=== PATIENT | female | born 1935 | race Caucasian/White ===

== ENCOUNTER → 2017-11-17 12:28 | Outpatient (CLI) | payer MEDICARE, OTHER, SELFPAY ==
--- NOTE | 2017-11-17 12:32 | RAD_ITS ---
STUDY: X-RAY - CERVICAL SPINE REASON FOR EXAM: Female, 82 years old. RIGHT SIDE NECK PAIN TECHNIQUE: 5 view(s) of the cervical spine were obtained. COMPARISON: None FINDINGS: Normal anterior atlantoaxial articulation. Normal odontoid process. Normal cervical lordosis. There is multi-level endplate spondylosis. There is C5-6 degenerative disc disease with disc space narrowing. There is C5-6 osseous foraminal stenosis. There is 3 mm retrolisthesis at C5-6. The soft tissue structures are unremarkable. RAD/Cerv Spine 4 or 5 Views IMPRESSION: There is C5-6 degenerative disc disease with disc space narrowing. There is C5-6 osseous foraminal stenosis. There is 3 mm retrolisthesis at C5-6. Electronically Signed: Lilly Melgoza MD at 7:44 EDT Tel , Service support ,
== END ==
PROVIDERS: Family Provider Internal Medicine; PCP Internal Medicine; Visit Provider Nurse Practitioner
DX: M54.2 Cervicalgia (principal)
CPT/HCPCS: 72050

== ENCOUNTER 2017-12-24 14:00 | Outpatient (RCR) | payer MEDICARE, OTHER, SELFPAY ==
--- NOTE | 2017-12-13 16:45 | HP.PTEVAL_ITS ---
Patient's Visit Information ALBER GUY is a 82 year old F referred to Physical Therapy by Neelam Phillips with a diagnosis of Cervical stenois, cervical DDD. Date of Evaluation: 11/26/17 Physical Therapist: Stu Kaplan - Visit Plan Frequency: 2x /Week Duration: 4-6 Weeks Plan: Start with UT/levator scpaulea stretching, cervical distraction, US progressing to postural strengthening as tolerated. - Subjective Subjective: Pt. is here today for her initial evaluation with diagnosis of cervical stenosis adn cervical degenerative disc disease. Pt. reports being very active in gym, she goes and works out daily at [employer]. She reprots having increased pain in her neck for ~7-8 weeks now, but has happened in past. Pt. reports it has never been this bad. Pt. reports taking ibuprophen with minimal relief. Her symptoms radiate into shoulder and forarm at times. Pt. reports increased pain with: lifting, sitting. Improved symptoms: not much. Pt. had an Xray showing C5-C6 DDD with disc space narrowing, C5/C6 psseous foraminal stenosis and 3mm retro listhesis at C6/C6. Pt. denies N/T, along the same pathway. Pt. denies inspector and tester strength loss. Pt. reports being very hopeful to reduce symptoms in order to get back to all gym work outs without symptoms. - Pain R arm Pain Intensity (Out of 10): 3 Pain Intensity Range: 1, 4 Cervical spine Pain Intensity (Out of 10): 3 Pain Intensity Range: 1, 4 - Objective POSTURE: Pt. has slight FH posture, increased cervical spine flexion at lower cervical spine, increased extension at upper crevical spine. Pt. has increased thoracic kyphosis. PALPATION: Pt. has increased tenderness to palpation of lower cervical spine. Pt. has no tenderness to palpation of R UE, slight soreness with RUT. NEUROLOGICAL: All intact without issues. Pt. has normal sensation to light and sharp touch throughout BUEs. ROM: Pt. has full ROM of bilateral UEs without incerase in symptoms. CERVICAL SPINE: flexion- nil loss NE , ext mod loss increase NW, rotation R min loss increase NW, rotation L min loss increase NE, SB min/mod loss bilat NE. Pt. has general stiffness throughout thoracic spine. MMT: RUE- wrist 4+/5 throughout; elbow 5/5 throughout; shoulder- 4/5 throughout. LUE- wrist 4+/5; elbow 5/5 throughout; shoulder- 4/5 throughout. Appropriate inspector and tester strength. - Special Tests C/S Radiculapathy - Left Upper limb tension test: Negative C/S Radiculapathy - Right Upper limb tension test: Negative C/S Radiculapathy - Left Spurlings: Negative C/S Radiculapathy - Right Spurlings: Positive C/S Radiculapathy - Left Cervical distraction: Negative C/S Radiculapathy - Right Cervical distraction: Negative C/S Radiculapathy - Left Relief test: Negative C/S Radiculapathy - Right Relief test: Positive Sharp Cheryl: Negative Vertebral Artery Test: Negative Alar Ligament Test: Negative Cervical Lying: Retraction - Mechanical Response: No effect Cervical Lying: Retraction - Symptoms During Testing: Decreases Cervical Lying: Retraction - Symptoms After Testing: No better Cervical Lying: Extension - Mechanical Response: No effect Cervical Lying: Extension - Symptoms During Testing: Increases Cervical Lying: Extension - Symptoms After Testing: No worse - Goals Goal 1:: Pt. to be I with HEP. Goal Time Frame: 4-6 Weeks Goal 2:: Pt. to have increased cervical ROM by 25% in all directions without increase in symptoms. Goal Time Frame: 4-6 Weeks Goal 3:: Pt. to be able to sleep throughout the night without increase in symptoms. Goal Time Frame: 4-6 Weeks Goal 4:: Pt. to have increased postural awareness visible my maintaining proper posture throughout therapy session. Goal Time Frame: 4-6 Weeks - Rehabilitation Potential Physical Therapy Diagnosis: Pt. has signs and symptoms consistent with cervical spine stenosis with cervical DDD. Pt. does have signs of nerve pressure as she is having radiating symptoms to approximately C5/C6 dermatome. Pt. had no myotomal weakness this date. Pt. would benefit from PT to increase cervical ROM , increase postural strength and to reduce symptoms. Rehabilitation Potential: Good - Anticipated Interventions Patient/Client Instruction: Educate patient on: Condition, Plan of Care, Risk Factors, Benefits of Fitness Program For the Purpose of:: To foster healthy habits, To improve decision making, To facilitate caregiver knowledge, To improve self management, To prevent re-injury , To improve ability to perform tasks related to life management, To improve tolerance to ADL's Therapeutic Exercise to Include: Strength training, Power training, Postural training, Flexibilty training, Jarocho Exercises, Scapular Strength/ Stabilization For the Purpose of:: To decrease pain, To increase ROM, To improve nutrient delivery to tissue, To decrease level of supervision to perform tasks, To improve health of tissue, To decrease soft tissue restriction, To increase flexibility/ROM, To improve self management, To prevent re-injury Manual Therapy Techniques to Include: Trigger point massage, Massage, Functional dry needling, Soft tissue mobilization For the Purpose of:: To decrease pain, To decrease swelling/inflammation, To increase ROM, To improve nutrient delivery to tissue IF ES: Yes Cryotherapy (ice pack, ice massage): Yes Thermo therapy (hot pack): Yes Ultrasound (thermal/non thermal): Yes For the Purpose of:: To decrease pain, To decrease swelling/inflammation, To increase ROM Thank you for the opportunity to evaluate your patient. For Medicare and Medicare HMO plans, please review the plan of care and approve it. It will need to be FAXED BACK to us at [phone] for Medicare purposes. Please let me know if there are questions or concerns regarding this plan of care. Physician Signature: Date:
--- NOTE | 2018-01-25 07:49 | HP.PTREVAL_ITS ---
Neelam Phillips, It has been my pleasure to treat ALBER GUY over the last 2 visits for Cervical stenois, cervical DDD. Please see the progress note below for an update on the physical therapy plan of care! Subjective: Pt. reports I was doing a lot better, but I am having some soreness today. Pt. reprots getting back to doing gym exercises over the past 2 weeks. Pt. reports having 3/10 pain in her neck this date. Objective/Function: Pt. tolerated all PT. Pt. continues to desire to come in now that her schedule is more free. Pt. reports she was too busy to come in previously. PT. has incraesed ROM, especially with R rotation, but has increased painw ith extension motions. She arm pain as also decreased. She has not been to consistent with HEP due to time contraints. Pt. would like to come back to be more consistent at this point in time. I think she would still benefit from stretching, modalities and postural exercises to decrease stress applied to cervical spine. Plan Plan: Pt. to be see x2 per week for 3 weeks to increase cervical ROM and decrease symptoms. Goals Goal 1:: Pt. to be I with HEP. Goal Time Frame: 4-6 Weeks Goal Progress: Progressing Goal 2:: Pt. to have increased cervical ROM by 25% in all directions without increase in symptoms. Goal Time Frame: 4-6 Weeks Goal Progress: Progressing Goal 3:: Pt. to be able to sleep throughout the night without increase in symptoms. Goal Time Frame: 4-6 Weeks Goal Progress: Progressing Goal 4:: Pt. to have increased postural awareness visible my maintaining proper posture throughout therapy session. Goal Time Frame: 4-6 Weeks Goal Progress: Progressing Anticipated Interventions Patient/Client Instruction: Educate patient on: Condition, Plan of Care, Risk Factors, Benefits of Fitness Program For the Purpose of:: To foster healthy habits, To improve decision making, To facilitate caregiver knowledge, To improve self management, To prevent re-injury , To improve ability to perform tasks related to life management, To improve tolerance to ADL's Therapeutic Exercise to Include: Strength training, Power training, Postural training, Flexibilty training, Jarocho Exercises, Scapular Strength/ Stabilization For the Purpose of:: To decrease pain, To increase ROM, To improve nutrient delivery to tissue, To decrease level of supervision to perform tasks, To improve health of tissue, To decrease soft tissue restriction, To increase flexibility/ROM, To improve self management, To prevent re-injury Manual Therapy Techniques to Include: Trigger point massage, Massage, Functional dry needling, Soft tissue mobilization For the Purpose of:: To decrease pain, To decrease swelling/inflammation, To increase ROM, To improve nutrient delivery to tissue IF ES: Yes Cryotherapy (ice pack, ice massage): Yes Thermo therapy (hot pack): Yes Ultrasound (thermal/non thermal): Yes For the Purpose of:: To decrease pain, To decrease swelling/inflammation, To increase ROM Please do not hesitate to contact me at [phone] by phone or Fax: if you have questions or concerns regarding this new plan of care! Sincerely, Stu Kaplan
--- NOTE | 2018-03-04 09:28 | HP.PTDCNRP_ITS ---
HP - Discharge Summary (1) - Patient Information ALBER GUY was seen in my office for initial evaluation on 11/26/17. The following Plan of Care was established for this patient: Initial Frequency: 2x /Week Initial Duration: 4-6 Weeks - Anticipated Interventions Patient/Client Instruction: Educate patient on: Condition, Plan of Care, Risk Factors, Benefits of Fitness Program For the Purpose of:: To foster healthy habits, To improve decision making, To facilitate caregiver knowledge, To improve self management, To prevent re- injury, To improve ability to perform tasks related to life management, To improve tolerance to ADL's Therapeutic Exercise to Include: Strength training, Power training, Postural training, Flexibilty training, Jarocho Exercises, Scapular Strength/Stabiliz ation For the Purpose of:: To decrease pain, To increase ROM, To improve nutrient delivery to tissue, To decrease level of supervision to perform tasks, To improve health of tissue, To decrease soft tissue restriction, To increase flexibility/ROM, To improve self management, To prevent re-injury Manual Therapy Techniques to Include: Trigger point massage, Massage, Functional dry needling, Soft tissue mobilization For the Purpose of:: To decrease pain, To decrease swelling/inflammation, To increase ROM, To improve nutrient delivery to tissue IF ES: Yes Cryotherapy (ice pack, ice massage): Yes Thermo therapy (hot pack): Yes Ultrasound (thermal/non thermal): Yes For the Purpose of:: To decrease pain, To decrease swelling/inflammation, To increase ROM This patient was last seen in our office 12/24/17. Pertinent comments regarding their Physical therapy will appear below: Pt. was seen for her cervical spine pain. Pt. was treated with manual interventions and US. Pt. reported having relief with these interventions. Pt. has not been seen in ~8 weeks and will be DC at this point in time. At this point I will be discontinuing this patient from physical therapy. I would be happy to see this patient again in the future if found appropriate by the physician. Thank you! Stu Kaplan
== END 2017-12-24 19:00 | disposition home or self-care (01) ==
LOC: PT 14:00
PROVIDERS: Family Provider Internal Medicine; PCP Internal Medicine; Visit Provider Nurse Practitioner
DX: M48.02 Spinal stenosis, cervical region (principal); M50.30 Other cervical disc degeneration, unspecified cervical region
CPT/HCPCS: 97035; 97140; 97162

== ENCOUNTER → 2018-03-10 14:26 | Outpatient (CLI) | payer MEDICARE, OTHER, SELFPAY ==
--- NOTE | 2018-03-10 14:27 | BI_ITS ---
MAMMOGRAPHY - BILATERAL SCREENING REASON FOR EXAM: Female, 82 years old. Routine annual screening examination. PERTINENT HISTORY: Grandmother with breast cancer. TECHNIQUE: Digital bilateral breast frankie (3D mammographic acquisition) in the CC and MLO projections. 2-D mediolateral oblique (MLO) and craniocaudad (CC) views of both breasts were obtained. CAD: Full Field Digital Mammography with Computer Added Detection was performed. COMPARISON: Comparison is made with prior mammogram dated November 04, 2010. FINDINGS: Breast Composition: The breasts are extremely dense, which lowers the sensitivity of mammography. There are no dominant masses or suspicious calcifications. Stable bilateral calcifications. No focal cluster is seen. No other significant abnormalities are identified. There has been no significant change since the prior study. BI/SCREENING MAMM (CAD), BILAT IMPRESSION: Stable bilateral screening mammogram. Yearly follow-up mammogram recommended. (A) ASSESSMENT CATEGORY: BIRADS Category 2: Benign. A letter regarding these results will be sent to the patient by the facility within 30 days. Approximately 10% of breast cancers are not detected by mammography. A normal mammogram should not delay biopsy of a clinically suspicious abnormality. [id number] Electronically Signed: Justus Dang MD at 15:39 EDT Tel [phone], Service support ,
--- NOTE | 2018-03-10 14:32 | BD_ITS ---
STUDY: DUAL ENERGY X-RAY ABSORPTIOMETRY / DXA REASON FOR EXAM: Female, 82 years old. The patient is postmenopausal. Loss of height. TECHNIQUE: Bone Mineral Density (BMD) measurements of lumbar spine and bilateral hips were obtained. COMPARISON: Comparison is made with prior study dated November 04, 2010. FINDINGS: Lumbar Spine (L1-L4): g/cm2 (0.916) / T-score (-2.2) / Z-score (-0.3) Findings are suggestive of osteopenia with a moderate fracture risk. Increased thoracic kyphosis. Left Femur Total: g/cm2 (0.667) / T-score (-2.7) / Z-score (-0.5) Left Femoral Neck: g/cm2 (0.684) / T-score (-2.5) / Z-score (-0.2) Right Femur Total: g/cm2 (0.729) / T-score (-2.2) / Z-score (0.0) Right Femoral Neck: g/cm2 (0.680) / T-score (-2.6) / Z-score (-0.3) The T-Scores on the most recent prior examination were: Lumbar Spine (L1-L4): There has been worsening of bone density since the previous examination. Left Femur Total: which represents a worsening of 5.9%. Right Femur Total: which represents a worsening of 1.9%. BD/Dexa Bone Density Study IMPRESSION: The patient is considered osteoporotic as outlined below according to World [employer] Organization (WHO) criteria with a high fracture risk. There has been worsening of bone density since the previous examination. Reference Information: The T-score is the number of standard deviations above or below the standard which is normal for young adults at their peak bone mineral density. The World Health Organization (WHO) interprets the T-scores as follows: Above -1 Normal bone density Between -1 and -2.5 Osteopenia Equal to / or below -2.5 Osteoporosis As a practical clinical guideline, osteopenia may be graded as follows: Mild -1 through -1.5 Moderate -1.6 through -2.0 Severe -2.1 through -2.4 The Z-score is the number of standard deviations above or below age-matched controls. A Z-score of less than -1.5 would be considered abnormal. References: 1. NIH Osteoporosis and Related Bone Diseases http://www.osteo.org 2. International Society for Clinical Densitometry http://www.iscd.org 3. National Osteoporosis Foundation http://www.nof.org Electronically Signed: Justus Dang MD at 14:38 EDT Tel [phone], Service support ,
== END ==
PROVIDERS: Family Provider Internal Medicine; PCP Internal Medicine; Visit Provider Nurse Practitioner
DX: Z12.31 Encounter for screening mammogram for malignant neoplasm of breast (principal); Z78.0 Asymptomatic menopausal state
CPT/HCPCS: 77063; 77067; 77080

== ENCOUNTER → 2019-03-16 | Outpatient (CLI) | payer MEDICARE, OTHER, SELFPAY ==
[2018-12-01 08:43] VITALS: BMI 18.1
--- NOTE | 2019-03-16 13:22 | BI_ITS ---
MAMMOGRAPHY - BILATERAL SCREENING REASON FOR EXAM: Female, 83 years old. Routine annual screening examination. PERTINENT HISTORY: Grandmother with breast cancer. TECHNIQUE: Digital bilateral breast nai (3D mammographic acquisition) in the CC and MLO projections. 2-D mediolateral oblique (MLO) and craniocaudad (CC) views of both breasts were obtained. CAD: Full Field Digital Mammography with Computer Added Detection was performed. COMPARISON: Comparison is made with prior study dated March 10, 2018 and November 04, 2010. FINDINGS: Breast Composition: The breasts are extremely dense, which lowers the sensitivity of mammography. There are no dominant masses or suspicious calcifications. Stable scattered bilateral calcifications. No other significant abnormalities are identified. There has been no significant change since the prior study. BI/SCREEN MAMM (CAD) W/NAI BILAT IMPRESSION: Stable bilateral screening mammogram. Yearly follow-up mammogram recommended. (A) ASSESSMENT CATEGORY: BIRADS Category 2: Benign. A letter regarding these results will be sent to the patient by the facility within 30 days. Approximately 10% of breast cancers are not detected by mammography. A normal mammogram should not delay biopsy of a clinically suspicious abnormality. [id number] Electronically Signed: Justus Dang, at 14:29 EST , Service support ,
== END | disposition home or self-care (01) ==
LOC: OPBI 13:20
PROVIDERS: Family Provider Internal Medicine; PCP Internal Medicine; Referring Provider Nurse Practitioner; Visit Provider Nurse Practitioner
DX: Z12.31 Encounter for screening mammogram for malignant neoplasm of breast (principal)
CPT/HCPCS: 77063; 77067

== ENCOUNTER 2019-12-23 16:14 | Emergency (ER) | payer MEDICARE, OTHER, SELFPAY ==
[2019-06-22 09:38] VITALS: BMI 18.3
[2019-12-23 16:14] VITALS: BP 177/108; PULSE 82; RESP 18; TEMP 36.7; O2SAT 97; BMI 19.1
--- NOTE | 2019-12-23 16:21 | CT_ITS ---
STUDY: CT BRAIN WITHOUT CONTRAST REASON FOR EXAM: Female, 84 years old. Trauma abrasions RADIATION DOSAGE (If Supplied By Facility): CTDIvol = ( 44.99 ) mGy, DLP = ( 796.11 ) mGycm TECHNIQUE: Transaxial CT imaging of the brain was performed without administration of intravenous contrast material. Individualized dose optimization techniques were used for this CT. COMPARISON: March 18 2017 FINDINGS: Brain parenchyma is without focal lesions, mass effect, acute intracranial hemorrhage, extra parenchymal fluid collections, hydrocephalus or herniation. The skull is intact. There is left for head scalp abrasions. CT/Brain/Head without Contrast IMPRESSION: 1. Normal CT brain. Electronically Signed: Ramona Valerio, at 17:04 EDT Tel , Service support ,
--- NOTE | 2019-12-23 16:22 | EKG12_ITS ---
Test Reason : FALL Blood Pressure : / mmHG Vent. Rate : 071 BPM Atrial Rate : 071 BPM P-R Int : 154 ms QRS Dur : 084 ms QT Int : 396 ms P-R-T Axes : 056 009 093 degrees QTc Int : 430 ms Sinus rhythm with marked sinus arrhythmia Anterior infarct (cited on or before 30-JAN-2017) Abnormal ECG Confirmed by KYMBERLY RUFF, CONNER ([id number]), slot editor HARRY SHARMA ([id number]) on 12/25/2019 2:40:13 PM Referred By: KRISTINA Confirmed By:CONNER TRAYLOR MD
--- NOTE | 2019-12-23 16:23 | ED.DCSUM_ITS ---
History of Present Illness Chief Complaint: Fall Informant: Patient Occurred: Today - JPTA Mechanism/Context: Same level fall, Vertigo - possibly -- felt off balance, falling and couldn't stop Usually ambulates: Without assistance Location: head, left shoulder, both knees Quality of Pain: Throbbing - headache; other areas not painful Current Severity: Moderate Maximum Severity: Moderate Worsened by: nothing Relieved by: nothing Associated Symptoms: Negative for: Parasthesias, Weakness, Loss of function, Inability to ambulate, Loss of consciousness, Amnesia Narrative: Patient states she was walking along the sidewalk, looking down to make sure she did not trip, suddenly felt off balance and fell and could not stop her self. She does not think she tripped on the sidewalk. She fell to her head as well as both knees and scraped her left shoulder against the pavement. There was no loss of consciousness. She takes clopidogrel and has a history of a couple stents in her heart. Neither were placed recently. Patient states she has felt vertigo in the past, and she has also felt similar episodes of being off balance and different scenarios while at rest, they have resulted in falls in the past without major injuries. Tetanus Immunization: 5-10 years Recent Illness/Hospitalization: No - Past Medical History (1) Atherosclerotic heart disease of [place] coronary artery without angina pectoris Status: Chronic Comment: PCI-Stent to RCA 1997; PCI-[place] to mid LAD 02/16/12 (2) Essential (primary) hypertension Status: Chronic (3) Hyperlipidemia Status: Chronic Past Medical History - Allergies and Home Meds Allergies/Adverse Reactions: Allergies meperidine HCl [From Demerol] Allergy (Verified 06/22/19 11:40) Swelling, tremors Primary Care Physician: Lisa Deluna DO [Primary Care Provider] - 3-5 Days Surgical History: no surgical history Lives: Alone Smoking Status: Former smoker Review of Systems General: Denies: Chills, Fever, Sweats Eyes: Denies: Visual changes - bilaterally, Diplopia ENT: Denies: Rhinorrhea, Sore throat Cardiovascular: Denies: Chest pain, Palpitations Respiratory: Denies: Dyspnea, Cough, Dyspnea on exertion Gastrointestinal: Denies: Abdominal pain, Nausea, Vomiting, Diarrhea, Melena, Hematochezia Genitourinary: Denies: Dysuria, Hematuria, Frequency Musculoskeletal: Denies: Neck pain, Back pain, Extremity Pain Skin: Reports: Abrasions, Wounds. Denies: Rash Neurological: Reports: Headache, - - off-balance; see HPI. Denies: Weakness, Numbness Physical Exam Vital Signs/Narrative: Vital Signs Temp Pulse Resp BP Pulse Ox 12/23/19 16:14 98.1 F 82 18 177/108 H 97 Inital Vital Signs reviewed: Yes General: Well nourished, Well developed, - - Keenly alert, oriented x3. GCS 15. Head: Normocephalic, Trauma - Left forehead only, Tenderness Eyes: Perrl, EOMI ENT: TM's clear, No hemotympanum or drainage, - - Contusion with small hematoma left forehead with 2 separate abrasions, no repairable lacerations. No crepitance or depression.. Negative for: Hemotympanum - And no esparza sign or periorbital ecchymosis., Otorrhea, Nasal trauma, Nasal septal hematoma Neck: Nontender, Full ROM. Negative for: Spinal Tenderness, Paraspinal Tenderness Cardiovascular: Regular rate, Regular rhythm Respiratory: No distress, CTA bilaterally, Chest nontender Abdomen: Soft, Nontender, Nondistended, Normal bowel sounds Back: Nontender. Negative for: Spinal Tenderness Extremeties: Pelvis stable AP compression without tenderness/pain. Full range of motion throughout all joints of all 4 extremities including the left shoulder and both knees where she has evidence of injury. There is an abrasion at the la teral aspect of the acromion on the left shoulder which is nontender, including the clavicle and the acromioclavicular joint. No deformities and patient is able to raise her arm over her head without any difficulty, no humeral pain/tenderness. There are abrasions to both knees over the patella, they are small, and there is no bony tenderness or effusion. Skin: Normal color, No rash, Trauma Neurological: Alert, Oriented x3, Cranial nerves II-XII grossly intact, Normal Strength, Normal Sensation Psychological: Normal affect, Normal Mood Diagnostic/Tx/Re-eval Impressions Brain CT 12/23/19 16:21 IMPRESSION: 1. Normal CT brain. Electronically Signed: Ramona Valerio, at 17:04 EDT Tel , Service support , Chest X-Ray 12/23/19 16:55 IMPRESSION: No acute findings. Moderate to severe emphysema. Moderate cardiomegaly. Electronically Signed: Ramona Valerio, at 17:46 EDT Tel , Service support , 12/23/19 16:21 Brain/Head without Contrast [CT] Stat 12/23/19 16:55 Chest 1 View (Portable) [RAD] Stat Laboratory Results 12/23/19 12/23/19 12/23/19 16:30 16:30 17:24 WBC 6.0 RBC 4.36 Hgb 13.2 Hct 41.0 MCV 94.0 MCH 30.3 MCHC 32.2 RDW Std Deviation 48.6 H RDW Coeff of [place] 14.1 Plt Count 212 MPV 11.4 Immature Gran % (Auto) 0.500 Neut % (Auto) 56.8 Lymph % (Auto) 29.3 [place] % (Auto) 11.1 H Eos % (Auto) 1.5 Baso % (Auto) 0.8 Absolute Neuts (auto) 3.4 Absolute Lymphs (auto) 1.75 Nucleated RBC % 0 Sodium 141 Potassium 4.4 Chloride 108 H Carbon Dioxide 26.0 Anion Gap 7 BUN 31 H Creatinine 0.97 Estim Creat Clear Calc 33.94 Est GFR (MDRD) Af Amer 70 Est GFR (MDRD) Non-Af 58 L BUN/Creatinine Ratio 31.9 H Glucose 104 Calcium 8.8 Troponin I < 0.015 Urine Color Yellow Urine Clarity Clear Urine pH 6.5 Ur Specific [place] 1.010 Urine Protein Negative Urine Glucose (UA) Normal Urine Ketones Negative Urine Occult Blood Negative Urine Nitrite Negative Urine Bilirubin Negative Urine Urobilinogen Normal Ur Leukocyte Esterase 25 H Urine RBC 0 SEEN Urine WBC 5-10 SEEN Ur Squamous Epith Cells 0 SEEN Urine Bacteria 2+ Urine Mucus 0 SEEN - Rhythm Strip Rhythm Strip: Sinus Rhythm Rate: 70 Ectopy: None - EKG Initial EKG Interpretation: Sinus Rhythm, No Acute Injury Pattern, Non-Specific ST Changes Prior: Unchanged - Medical Decision Making Patient NIH stroke scale including cerebellar exam is 0 at this time, I think she is more likely having some form of peripheral vertigo rather than central given the brief nature of it while she was looking down, and the fact that she has had it intermittently in the past. She is not an IV TPA candidate given her head injury today, which is certainly the most traumatic injury that she has, and for these reasons a stroke alert was not called or felt indicated. She does not have any intracranial injury. Labs look good. She is able to ambulate without any symptoms of disequilibrium or vertigo at this time. She was offered admission but declines and wants to go home. Her wounds were cleansed and dressed with bacitracin, there is nothing to repair. Discussed potentially using a cane for insurance against falling, removing area rugs that could cause her to slip and fall, and follow-up with her doctor. She is comfortable with that plan. With regards to her urine, it shows some soft signs of infection. This was sent for culture, although she does not have dysuria she does have frequency, and I think it would be best to place her on a week of antibiotics empirically until the culture returns. She is comfortable with that plan will follow-up with her doctor. ED Disposition - Plan for ED Patient: Disposition: Home or Assisted Living Diagnosis: Dysequilibrium, Closed head injury without loss of consciousness, Abrasion, lower leg, anterior Instructions: ED Dizziness UKO, ED Head Injury Adult, ED Prevention Fall Prescriptions: Cephalexin [Keflex] 500 mg PO TID #21 cap Prescription Printed Referrals: Lisa Deluna DO [Primary Care Provider] - 3-5 Days
[2019-12-23 16:29] VITALS: BP 177/108; PULSE 74; RESP 16; O2SAT 95
[2019-12-23 16:34] VITALS: O2SAT 95
[2019-12-23 16:40] LABS: Absolute Lymphocyte Count 1.75 X10^3/uL (0.83-4.51); Absolute Neutrophil Count 3.4 X10^3/uL (2.0-7.7); Basophil# 0.05 X10^3/uL; Basophil% 0.8 % (0-1); Eosinophil# 0.09 X10^3/uL; Eosinophils% 1.5 % (0-5); Hemoglobin 13.2 g/dL (12.0-15.0); Lymphocyte # 1.75 X10^3/ul (4.0); Lymphocyte % 29.3 % (19-41); Mean Corp Hgb Conc 32.2 g/dL (32-36); Mean Corpuscular Hgb 30.3 pg (27.0-32.0); Mean Platelet Vol. 11.4 fl (6.2-12.0); Monocyte# 0.66 X10^3/uL; Monocyte% 11.1 % (0-10); NRBC Flagged by Analyzer 0 % (0-5); Neutrophil # 3.39 X10^3/uL (2.7-7.7); Neutrophil % 56.8 % (47-70); Platelet Count 212 K/mm3 (150-450); RBC Distribution Width CV 14.1 % (11.6-14.6); RBC Distribution Width SD 48.6 fl (35.1-43.9); Red Blood Count 4.36 M/mm3 (4.2-5.4)
--- NOTE | 2019-12-23 16:55 | RAD_ITS ---
STUDY: X-RAY CHEST REASON FOR EXAM: Female, 84 years old. FALL ON SIDEWALK TODAY. PT PASSED OUT. TECHNIQUE: Frontal view of the chest COMPARISON: December FINDINGS: Lungs are severely hyperinflated. There is no pneumothorax, pulmonary edema or pleural effusions. The heart is moderately enlarged. The skeleton is osteoporotic. There are surgical clips in the thyroid bed. There are no displaced rib fractures. RAD/Chest 1 View (Portable) IMPRESSION: No acute findings. Moderate to severe emphysema. Moderate cardiomegaly. Electronically Signed: Ramona Valerio, at 17:46 EDT Tel , Service support ,
[2019-12-23 16:56] LABS: Anion Gap 7 (5-15); BUN 31 mg/dL (7-18); BUN/Creat Ratio 31.9 RATIO (10-20); Calcium,Total 8.8 mg/dL (8.5-10.1); Chloride 108 mmol/L (98-107); Creatinine, Serum 0.97 mg/dL (0.55-1.02); EST Glomerular Filtration Rate 58 mL/min (>60); Est Glom Filt Rate - Afr Amer 70 mL/min (>60); Estimated Creatinine Clearance 33.94 ml/min; Glucose 104 mg/dL (74-106); Potassium 4.4 mmol/L (3.5-5.1); Sodium Level 141 mmol/L (136-145)
[2019-12-23 17:31] LABS: Mucous, Urine 0 SEEN /hpf (<or=2+); Red Blood Cells-Urine 0 SEEN /hpf (0-5); Squamous Epithelial Cells - UA 0 SEEN /hpf (5-10)
[2019-12-23 17:39] LABS: Color, Urine Yellow (Yellow); Glucose, Dipstick Normal (Normal); Ketone-Dipstick Negative (Negative); Leukocyte Esterase-Dipstick 25 /ul (Negative); Nitrite-Dipstick Negative (Negative); Occult Blood-Urine Negative /ul (Negative); Protein-Dipstick Negative (Negative); Urine Bilirubin Dipstick Negative (Negative); Urine Clarity Clear (Clear); Urine Urobilinogen Normal (Normal); Urine pH 6.5 (5.0 - 8.0)
[2019-12-23 18:15] LABS: Bacteria 2+ /hpf (None Seen); White Blood Cells 5-10 SEEN /hpf (0-5)
[2019-12-23] MEDS: Cephalexin 250 MG Capsule 500 MG PO (19:41)
[2019-12-23 20:00] VITALS: BP 149/88; PULSE 75; RESP 16; O2SAT 98
== END 2019-12-23 20:02 | disposition home or self-care (01) ==
PROVIDERS: Emergency Provider Emergency Medicine; PCP Internal Medicine
DX: R42 Dizziness and giddiness (principal); S09.90XA Unspecified injury of head, initial encounter; S80.819A Abrasion, unspecified lower leg, initial encounter; I25.10 Atherosclerotic heart disease of native coronary artery without angina pectoris; W19.XXXA Unspecified fall, initial encounter; Z79.899 Other long term (current) drug therapy; Z87.891 Personal history of nicotine dependence; Z95.5 Presence of coronary angioplasty implant and graft
CPT/HCPCS: 70450; 71045; 80048; 81001; 84484; 85025; 87086; 87088; 87186; 93005; 99285; A4216

== ENCOUNTER → 2020-01-10 09:49 | Outpatient (CLI) | payer MEDICARE, OTHER, SELFPAY ==
[2019-12-23 16:14] VITALS: BMI 19.1
--- NOTE | 2020-01-10 09:52 | CDU_ITS ---
Reason For Study: Bilateral neck pain Rt. Velocities/BP Lt. Velocities/BP Prox CCA 55/9 cm/sec. Prox CCA 60/7 cm/sec. Mid CCA 57/9 cm/sec. Mid CCA 78/10 cm/sec. Dist CCA 61/7 cm/sec. Dist CCA 51/10 cm/sec. Prox ICA 55/10 cm/sec. Prox ICA 53/13 cm/sec. Mid ICA 82/20 cm/sec. Mid ICA 71/21 cm/sec. Dist ICA 87/18 cm/sec. Dist ICA 68/16 cm/sec. Rt. ICA/CCA = 1.5. Lt. ICA/CCA = 0.9. Prox ECA 72/5 cm/sec. Prox ECA 119/4 cm/sec. Rt. Vert. 66/12 cm/sec. Lt. Vert. 77/17 cm/sec. Right Extracranial There is heterogeneous, irregular atherosclerotic plaque noted in the right common carotid artery. There is homogeneous, smooth atherosclerotic plaque noted in the right internal carotid artery. There is homogeneous, smooth atherosclerotic plaque noted in the right external carotid artery. Antegrade flow is noted in the right vertebral artery. Left Extracranial There is heterogeneous, irregular atherosclerotic plaque noted in the left common carotid artery. There is homogeneous, irregular atherosclerotic plaque noted in the left internal carotid artery. There is heterogeneous, irregular atherosclerotic plaque noted in the left external carotid artery. Antegrade flow is noted in the left vertebral artery. Procedure Carotid Duplex 22780. Exam performed in department. Interpretation Summary Mild (<50%) stenosis right extracranial internal carotid. Mild (<50%) stenosis left extracranial internal carotid. Flow within the vertebral arteries is antegrade bilaterally. Ordering Physician: Neelam Phillips Referring Physician: Lisa Deluna Performed By: Soraida Lopez, MARIANELA, RVT
--- NOTE | 2020-01-10 09:56 | MRI_ITS ---
STUDY: MRI BRAIN WITHOUT CONTRAST REASON FOR EXAM: Female, 84 years old. DISORITNTATION, FREQUENT FALLS, INTERMITTENT EXTREME NECK PAIN TECHNIQUE: Standardized multiplanar fat and water weighted pulse sequences were obtained. COMPARISON: CT 12/23/2019 FINDINGS: There is moderate cerebral atrophy with widening of the extra-axial spaces and ventricular dilatation. There are a limited number of small white matter hyperintensities, distributed throughout the deep white matter tracts of the cerebral hemispheres, consistent with mild chronic white matter ischemic changes. There is no evidence for recent intracranial ischemia or other cause of cytotoxic edema on diffusion weighted imaging (DWI). Normal T2* images of the brain without demonstrated susceptibility artifact. There is no demonstrated hemosiderin stain. Normal bilateral basal ganglia. Normal thalami. There is no extra-axial fluid accumulation. Normal flow voids within the major intracranial circulation suggesting patency by spin echo criteria. Normal sella turcica, pituitary gland, infundibular stalk, optic chiasm and hypothalamus. Normal tectal plate and pineal gland. Normal midbrain, shayy and medulla. Normal cerebellum. Normal basal cisterns. Normal bilateral temporal bones. Normal bilateral internal auditory canals. There are bilateral ocular lens implants with otherwise normal intraorbital contents. Normal visualized paranasal sinuses. Normal calvarium and skull base. Normal visualized soft tissue structures. Normal visualized upper cervical spine. MRI/Brain without Contrast IMPRESSION: Involutional changes of the brain, as described above. Electronically Signed: Boris Delgado MD at 12:52 EDT Tel , Service support ,
== END ==
PROVIDERS: PCP Internal Medicine; Referring Provider Nurse Practitioner; Visit Provider Nurse Practitioner
DX: R42 Dizziness and giddiness (principal); R55 Syncope and collapse; I25.10 Atherosclerotic heart disease of native coronary artery without angina pectoris; S09.90XA Unspecified injury of head, initial encounter; M54.2 Cervicalgia
CPT/HCPCS: 70551; 93880

== ENCOUNTER → 2020-04-18 13:06 | Outpatient (CLI) | payer MEDICARE, OTHER, SELFPAY ==
[2019-06-22 09:38] VITALS: BMI 18.3
[2020-01-16 13:22] VITALS: BMI 18.3
--- NOTE | 2020-04-18 13:08 | BD_ITS ---
STUDY: DUAL ENERGY X-RAY ABSORPTIOMETRY / DXA REASON FOR EXAM: Female, 84 years old. Age of molly 51. Pat is 140.0# and 62 and quot; a loss of 3 and quot; per pat. Past hx of smoking but 40 yrs ago. Past use of fosamax for a long time. Has taken a urinary med with a steroid in it. Takes 3000mg of calcium and a multi-vit. Exercises a little. Mother, grandmother and uncle had osteo. TECHNIQUE: Bone Mineral Density (BMD) measurements of lumbar spine and bilateral hips were obtained. COMPARISON: Comparison is made with prior study dated 03/10/2018. FINDINGS: Lumbar Spine (L1-L4): g/cm2 (1.059) / T-score (-1.0) / Z-score (0.9) Findings are suggestive of normal bone density with a low fracture risk. Left Femur Total: g/cm2 (0.671) / T-score (-2.7) / Z-score (0.4) Left Femoral Neck: g/cm2 (0.720) / T-score (-2.3) / Z-score (0.1) Right Femur Total: g/cm2 (0.737) / T-score (-2.1) / Z-score (0.2) Right Femoral Neck: g/cm2 (0.716) / T-score (-2.3) / Z-score (0.1) The T-Scores on the most recent prior examination were: Lumbar Spine (L1-L4): There has been improvement of bone density since the previous examination. Left Femur Total: which represents an improvement of 0.6%. Right Femur Total: which represents an improvement of 1.1%. BD/Dexa Bone Density Study IMPRESSION: The patient is considered osteoporotic as outlined below according to World [place] Organization (WHO) criteria with a high fracture risk. There has been improvement of bone density since the previous examination. Reference Information: The T-score is the number of standard deviations above or below the standard which is normal for young adults at their peak bone mineral density. The World Health Organization (WHO) interprets the T-scores as follows: Above -1 Normal bone density Between -1 and -2.5 Osteopenia Equal to / or below -2.5 Osteoporosis As a practical clinical guideline, osteopenia may be graded as follows: Mild -1 through -1.5 Moderate -1.6 through -2.0 Severe -2.1 through -2.4 The Z-score is the number of standard deviations above or below age-matched controls. A Z-score of less than -1.5 would be considered abnormal. References: 1. NIH Osteoporosis and Related Bone Diseases www osteo.org 2. International Society for Clinical Densitometry www iscd.org 3. National Osteoporosis Foundation www nof.org Electronically Signed: Justus Dang, at 15:02 EST , Service support ,
--- NOTE | 2020-04-18 13:39 | ECHOD_ITS ---
Reason For Study: Syncope/Near Syncope Procedure This was a 2D Doppler, Color Flow transthoracic echocardiogram. Exam performed in department. Left Ventricle Normal LV size. Left ventricular systolic function is normal. The estimated ejection fraction is 60 %. Stage 1 diastolic dysfunction. No regional wall motion abnormalities noted. Right Ventricle Normal RV size. Normal systolic function. Atria Normal left atrium. Normal right atrium. Mitral Valve Normal mitral valve. Mild (1+) eccentric mitral valve insufficiency. Tricuspid Valve Normal tricuspid valve. Mild (1+) tricuspid valve insufficiency. Pulmonary artery systolic pressure is 38 mmHg. Aortic Valve Trisinus/trileaflet aortic valve. Mild-Moderate (1-2+) eccentric aortic valve insufficiency. Pulmonic Valve Normal pulmonic valve. Great Vessels Normal aortic root. The pulmonary artery is normal size. Normal inferior vena cava. Pericardium/Pleural No pericardial effusion. MMode/2D Measurements & Calculations LVIDd: 3.8 cm IVSd: 0.90 cm Ao root diam: 3.8 cm LVIDs: 2.8 cm LVPWd: 1.2 cm RVDd: 3.3 cm FS: 26.5 % LAV(MOD-bp): 36.3 ml LVAd ap4: 23.3 cm2 SV(MOD-sp4): 30.6 ml LAV(MOD-bp) Indexed: 24.5 ml/m2 EDV(MOD-sp4): 57.5 ml LAV(MOD-sp2): 56.6 ml EDV(sp4-el): 59.9 ml LAV(MOD-sp4): 22.3 ml LVAs ap4: 14.6 cm2 ESV(MOD-sp4): 26.9 ml ESV(sp4-el): 27.5 ml EF(MOD-sp4): 53.2 % EF(sp4-el): 54.1 % SV(sp4-el): 32.4 ml LA A4 area: 12.7 cm2 LA dimension(2D): 3.4 cm RA A4 area: 19.0 cm2 Doppler Measurements & Calculations MV E max oleksandr: 55.1 cm/sec Lat Peak E' Oleks[place]r: 6.4 cm/sec Med Peak E' Oleksandr: 4.5 cm/sec MV A max [place]: 67.2 cm/sec E/E' lat: 8.6 E/E' med: 12.4 MV E/A: 0.82 Ao V2 max: 136.6 cm/sec AI max ole[place]r: 424.1 cm/sec LV V1 max: 92.1 cm/sec Ao max P.5 mmHg AI max P.9 mmHg LV V1 max P.4 mmHg Ao V2 mean: 93.3 cm/sec Ao mean P.8 mmHg AI dec slope: 251.8 cm/sec2 Ao V2 VTI: 34.0 cm AI P1/2t: 493.3 msec PA V2 max: 64.9 cm/sec TR max [place]r: 293.3 cm/sec TR max P.4 mmHg Interpretation Summary Normal LV size. Left ventricular systolic function is normal. The estimated ejection fraction is 60 %. Mild-Moderate (1-2+) eccentric aortic valve insufficiency. Stage 1 diastolic dysfunction. Ordering Physician: Avelino Zayas Referring Physician: Neelam Phillips Performed By: Soraida Lopez, MARIANELA, RVT
== END ==
PROVIDERS: PCP Internal Medicine; Visit Provider Internal Medicine Cardiovascular Disease
DX: M81.0 Age-related osteoporosis without current pathological fracture (principal); R55 Syncope and collapse
CPT/HCPCS: 77080; 93306

== ENCOUNTER 2020-06-06 12:00 | Outpatient (RCR) | payer MEDICARE, OTHER, SELFPAY ==
[2020-01-16 13:22] VITALS: BMI 18.3
== END 2020-06-06 23:59 ==
LOC: IMMUN 12:00
PROVIDERS: PCP Internal Medicine; Visit Provider Family Medicine
DX: Z23 Encounter for immunization (principal)
CPT/HCPCS: 0011A; 0012A; 91301

== ENCOUNTER → 2021-01-16 12:34 | Outpatient (CLI) | payer MEDICARE, OTHER, SELFPAY ==
[2020-10-03 08:44] VITALS: BMI 19.2
--- NOTE | 2021-01-16 12:39 | BI_ITS ---
MAMMOGRAPHY - BILATERAL SCREENING REASON FOR EXAM: Female, 85 years old. Routine annual screening examination. PERTINENT HISTORY: Grandmother with breast cancer. TECHNIQUE: Digital bilateral breast nai (3D mammographic acquisition) in the CC and MLO projections. 2-D mediolateral oblique (MLO) and craniocaudad (CC) views of both breasts were obtained. CAD: Full Field Digital Mammography with Computer Added Detection was performed. COMPARISON: Comparison is made with prior study 03/16/2019 and 03/10/2018. FINDINGS: Breast Composition: The breasts are extremely dense, which lowers the sensitivity of mammography. There are no dominant masses or suspicious calcifications. Stable scattered bilateral calcifications. No other significant abnormalities are identified. There has been no significant change since the prior study. BI/SCRN MAMM (CAD)W/NAI BILAT IMPRESSION: Stable bilateral screening mammogram. Yearly follow-up mammogram recommended. (A) ASSESSMENT CATEGORY: BIRADS Category 2: Benign. A letter regarding these results will be sent to the patient by the facility within 30 days. Approximately 10% of breast cancers are not detected by mammography. A normal mammogram should not delay biopsy of a clinically suspicious abnormality. [id number] Electronically Signed: Justus Dang MD at 13:28 EDT , Service support ,
== END ==
PROVIDERS: PCP Internal Medicine; Referring Provider Nurse Practitioner; Visit Provider Nurse Practitioner
DX: Z12.31 Encounter for screening mammogram for malignant neoplasm of breast (principal)
CPT/HCPCS: 77063; 77067

== ENCOUNTER 2021-07-12 13:24 | Emergency (ER) | payer MEDICARE, OTHER, SELFPAY ==
[2021-07-12 13:25] VITALS: BP 189/70; PULSE 69; RESP 16; TEMP 36.6; O2SAT 100; BMI 17.4
--- NOTE | 2021-07-12 14:06 | EDS_ITS ---
HPI HPI - Fall History of Present Illness Chief Complaint: Fall Informant: patient Occured/Mechanism Occurred: Days (2) Mechanism/Context: Yes same level fall Pain/Injury Location: Left chest and ribs Quality of Pain: Aching and Burning Worsened by: Walking, standing from a seated position Relieved by: Nothing Associated Symptoms Associated Symptoms: Negative for Parasthesias, Weakness, Loss of function, In ability to ambulate, Loss of consciousness and Amnesia Narrative Narrative: Patient presents with pain in her left ribs that began after a fall 2 days ago. Patient states that she felt herself falling and grabbed onto a door. Patient injured her left chest at that time. Patient denies any loss of consciousness. Patient denies any weakness. Patient denies any paresthesias. Patient states her pain is worse with walking and with standing from a seated position. Patient describes her pain as aching and burning. Patient states the pain is over the left chest and ribs. PFSH PFS Medical History Atherosclerotic heart disease of [place] coronary artery without angina pectoris Bradycardia Chronic neck and back pain Diarrhea Difficulty balancing when standing Essential (primary) hypertension History of pneumothorax Hyperlipidemia Hypocalcemia Hypokalemia Hypoparathyroidism Left-sided chest wall pain Limb weakness Other transient cerebral ischemic attacks and related syndromes Papular rash Parathyroid adenoma Peripheral vascular insufficiency Right renal artery stenosis Shoulder pain Thyroid disease TIA (transient ischemic attack) Home Medications oxybutynin chloride 5 mg tablet 5 mg PO BID #60 tab 12/01/18 [History Last Taken Unknown] amlodipine 10 mg PO DAILY 07/12/21 [History Last Taken Unknown] clopidogrel 75 mg PO MOWEFR 07/12/21 [History Last Taken Unknown] Allergy/AdvReac Type Severity Reaction Status Date / Time meperidine HCl [From Demerol] Allergy Swelling, Verified 07/12/21 13:24 tremors Family History Brother Heart disease Mother Heart disease CHF (congestive heart failure) Father Heart disease Sister Heart disease Surgical History H/O parathyroidectomy (2016) History of cataract surgery History of coronary artery stent placement (02/16/12) History of left heart catheterization (09/14/16) History of shoulder surgery Social History Smoking Status: Former smoker alcohol intake: current details: occasionial ROS ROS ED Constitutional Constitutional ED: Denies chills or fever(s) Eyes Eyes: Denies blurry vision or change in vision ENT ENT ED: Denies rhinorrhea or sore throat Cardiovascular Cardiovascular: Reports chest pain; Denies palpitations Respiratory/Chest Respiratory/Chest: Reports dyspnea; Denies cough Gastrointestinal Gastrointestinal: Denies nausea or vomiting Genitourinary Genitourinary ED: Denies dysuria or hematuria Musculoskeletal Musculoskeletal: Reports neck pain; Denies back pain Integumentary Reports rash; Denies abscess Neurologic Neurologic: Denies headache(s) or weakness Allergic/Immunologic Allergic/Immunologic ED: Denies mouth swelling or urticaria EXAM Physical Exam Const Vital Signs: 07/12/21 13:25 07/12/21 13:37 Temperature 97.9 F Temperature Source Temporal Pulse Rate 69 Respiratory Rate 16 Respiratory Effort Normal Non-Labored Respiratory Depth Normal Respiratory Pattern Normal Blood Pressure 189/70 H Blood Pressure Mean 109 Pulse Ox 100 Oxygen Delivery Method Room Air Positive well nourished and well developed General Appearance ED: well developed and NAD Neck full ROM and supple Chest Wall Chest Narrative: There is tenderness over the lateral aspect of the left lower ribs. There is no edema or ecchymosis. There is no bony crepitance or step- off. Resp normal respiratory effort and clear to auscultation bilaterally Cardio regular rate and regular rhythm GI non-tender Palpation: soft Neuro oriented x3, CN's II-XII intact bilaterally, moves all extremities, no focal m otor deficits and no sensory deficits noted Sensorium / Orientation: alert Psych mental status grossly normal MDM MDM MDM Narrative Medical decision making narrative: X-rays of the left ribs were obtained. There are 4 views. On my interpretation, there is no acute fracture. There is no pneumothorax. There is no acute cardiopulmonary process. Radiologist also interpreted the x-rays and agrees. Patient was advised of her findings. Patient was instructed use ice to the area. Patient was instructed to take Tylenol as needed for pain. Patient was instructed to take 10-15 deep breaths every hour while awake to prevent pneumonia. Patient and family understood and were agreeable with the plan. All questions were answered. Radiography Diagnostic Testing: Clinical Impression(s) from Imaging Studies Ribs w/Chest X-Ray 07/12/21 14:11 IMPRESSION: RIBS: Normal x-ray examination of the ribs. CHEST: Degenerative changes, as described above. No demonstrated acute cardiopulmonary process. Electronically Signed: Bakari Bueno MD at 15:01 EST Reading Location ID and State: [address] [place] [address] , Service support , Discharge Plan Triage Chief Complaint: Fall ED Provider: Bakari Gutierrez Dx/Rx/DC Orders Clinical Impression: Chest wall contusion Instructions: ED Chest Wall Contusion Prescriptions: No Action oxybutynin chloride 5 mg tablet 5 mg PO BID Qty: 60 RF: 0 amlodipine 10 mg Tablet 10 mg PO DAILY RF: 0 clopidogrel 75 mg tablet 75 mg PO MOWEFR RF: 0 Primary Care Provider: Lisa Deluna Referrals: Lisa Deluna DO [Primary Care Provider] - 3-5 Days Disposition Disposition: Home, Self Care
--- NOTE | 2021-07-12 14:11 | RAD_ITS ---
STUDY: X-RAY - UNILATERAL RIBS ( LEFT ) WITH CHEST REASON FOR EXAM: Female, 86 years old. had near fall on and hit left ribs and arm. c/o left rib pain with movement today. TECHNIQUE - RIBS: 3 view(s) of the ribs. TECHNIQUE - CHEST: Single PA view of the chest. COMPARISON: Chest x-ray dated December 23, 2019 FINDINGS - RIBS: Normal visualized ribs without a demonstrated fracture. FINDINGS - CHEST: No visualized consolidation. There is hyperinflation of the lungs consistent with chronic obstructive lung disease (COPD). There is no demonstrated pleural abnormality. Normal size heart. Normal mediastinum and christ. Normal visualized pulmonary arteries. There is atherosclerotic tortuosity of the aortic arch and descending thoracic aorta. There are diffuse degenerative changes of the visualized thoracic spine. Normal visualized ribs, clavicles, and shoulders. There is no demonstrated abnormality of the visualized soft tissue structures of the upper abdomen. RAD/Ribs Uni Min 3V w/PA Chest IMPRESSION: RIBS: Normal x-ray examination of the ribs. CHEST: Degenerative changes, as described above. No demonstrated acute cardiopulmonary process. Electronically Signed: Bakari Bueno MD at 15:01 EST Reading Location ID and State: [facility] / [place] , Service support ,
[2021-07-12 15:41] VITALS: BP 183/51; PULSE 53; RESP 16; O2SAT 97
--- NOTE | 2021-07-15 14:25 | CASEMGMT ---
[facility] ED follow-up: Date of ER visit: 07/12/2021 Presenting ER complaint: fall RN BRUNA placed call to patient's telephone number listed on demographics with no answer. Voice message left with call back information requesting return call if any questions, needs or concerns. ALONSO Lujan CM
== END 2021-07-12 15:42 | disposition home or self-care (01) ==
PROVIDERS: Emergency Provider Emergency Medicine; PCP Internal Medicine; Visit Provider Emergency Medicine
DX: S20.20XA Contusion of thorax, unspecified, initial encounter (principal); I10 Essential (primary) hypertension; I25.10 Atherosclerotic heart disease of native coronary artery without angina pectoris; Z86.73 Personal history of transient ischemic attack (TIA), and cerebral infarction without residual deficits; Z95.5 Presence of coronary angioplasty implant and graft; Z87.891 Personal history of nicotine dependence; W18.30XA Fall on same level, unspecified, initial encounter; Z79.899 Other long term (current) drug therapy
CPT/HCPCS: 71101; 99282

== ENCOUNTER 2022-01-02 18:13 | Inpatient (IN) | payer MEDICARE, OTHER, SELFPAY ==
[2022-01-02 18:14] VITALS: BP 126/77; PULSE 86; RESP 16; RESP 18; TEMP 36.7; O2SAT 98; BMI 17.4
--- NOTE | 2022-01-02 20:29 | EKG12_ITS ---
Test Reason : DYSRHYTHMIA Blood Pressure : / mmHG Vent. Rate : 086 BPM Atrial Rate : 086 BPM P-R Int : 156 ms QRS Dur : 084 ms QT Int : 380 ms P-R-T Axes : 062 -49 093 degrees QTc Int : 454 ms Normal sinus rhythm Left axis deviation Septal infarct , age undetermined ST & T wave abnormality, consider anterolateral ischemia Abnormal ECG Confirmed by LILLIAM RUFF, HAILEY ([id number]), supervising editor news reel MAXINE TEJADA ([id number]) on 01/05/2022 9:42:46 AM Referred By: RADHA Confirmed By:KEVIN VYAS MD
[2022-01-02 20:50] LABS: Absolute Lymphocyte Count 0.93 X10^3/uL (0.83-4.51); Basophil# 0.05 X10^3/uL; Basophil% 0.7 % (0-1); Eosinophil# 0.01 X10^3/uL; Eosinophils% 0.1 % (0-5); Hematocrit 42.3 % (37-47); Hemoglobin 13.5 g/dL (12.0-15.0); Lymphocyte # 0.93 X10^3/ul (0.83-4.51); Lymphocyte % 13.2 % (19-41); Mean Corp Hgb Conc 31.9 g/dL (32-36); Mean Corpuscular Hgb 30.2 pg (27.0-32.0); Mean Corpuscular Volume 94.6 fL (81-99); Mean Platelet Vol. 11.3 fl (6.2-12.0); Monocyte# 0.96 X10^3/uL; Monocyte% 13.6 % (0-10); NRBC Flagged by Analyzer 0 % (0-5); Neutrophil # 4.98 X10^3/uL (2.7-7.7); Neutrophil % 70.7 % (47-70); Platelet Count 203 K/mm3 (150-450); RBC Distribution Width CV 13.6 % (11.6-14.6); RBC Distribution Width SD 47.8 fl (35.1-43.9); Red Blood Count 4.47 M/mm3 (4.2-5.4); White Blood Count 7.1 K/mm3 (4.4-11.0)
[2022-01-02 20:53] VITALS: BP 178/73; PULSE 73; RESP 20; O2SAT 93
[2022-01-02 21:00] LABS: Partial Thromboplast Time 28.5 Seconds (24.1-36.2); Prothrombin Time (Protime)PT. 12.4 SECONDS (11.7-14.9)
--- NOTE | 2022-01-02 21:04 | CT_ITS ---
STUDY: CT HEAD STROKE PROTOCOL W/O CONTRAST INJECTION REASON FOR EXAM: Female, 86 years old. Neuro deficit, acute, stroke suspected RADIATION DOSAGE (If Supplied By Facility): CTDIvol = ( ) mGy, DLP = ( ) mGycm TECHNIQUE: Transaxial CT imaging of the brain was performed without administration of intravenous contrast material. Individualized dose optimization techniques were used for this CT. COMPARISON: 12/23/2019 FINDINGS: Normal soft tissue structures. Normal calvarium. There is mild cerebral atrophy with widening of the extra-axial spaces and ventricular dilatation. There are areas of decreased attenuation within the white matter tracts of the supratentorial brain, consistent with microvascular disease changes. Normal basal ganglia and thalami. Normal brainstem. Normal cerebellum. There is no intracranial hemorrhage. There are no findings of an acute ischemic infarction. Normal visualized paranasal sinuses. ASPECT score: CT/STROKE Brain/Head without Cont IMPRESSION: Chronic involutional changes of the brain. N.B. : The above Results were Read Back by Boris Delgado MD to Mike Maldonado RN, RN, and understanding confirmed on 01/02/2022 21:24:35 (ET). Electronically Signed: Boris Delgado MD at 21:26 EDT ,
[2022-01-02 21:06] LABS: Anion Gap 7 (5-15); BUN 25 mg/dL (7-18); BUN/Creat Ratio 27.3 RATIO (10-20); Chloride 106 mmol/L (98-107); Creatinine, Serum 0.92 mg/dL (0.55-1.02); EST Glomerular Filtration Rate 62 mL/min (>60); Est Glom Filt Rate - Afr Amer 75 mL/min (>60); Estimated Creatinine Clearance 31.42 ml/min; Glucose 116 mg/dL (74-106); Potassium 4.4 mmol/L (3.5-5.1); Sodium Level 139 mmol/L (136-145); Troponin-I HS 89 pg/mL (3.0-54.0)
--- NOTE | 2022-01-02 21:10 | RAD_ITS ---
STUDY: X-RAY CHEST REASON FOR EXAM: Female, 86 years old. Neuro deficit, acute, stroke suspected TECHNIQUE: Single AP portable view of the chest. COMPARISON: 07/12/2021 FINDINGS: There is hyperinflation of the lungs consistent with chronic obstructive lung disease (COPD). There is no demonstrated pleural abnormality. There is moderate cardiac enlargement. Normal mediastinum and christ. Normal visualized pulmonary arteries. There is atherosclerotic tortuosity of the aortic arch and descending thoracic aorta. Normal visualized thoracic spine. Normal visualized ribs, clavicles, and shoulders. There is no demonstrated abnormality of the visualized soft tissue structures of the upper abdomen. RAD/Chest 1 View IMPRESSION: Emphysema without pneumonia or atelectasis. Electronically Signed: Boris Delgado MD at 21:27 EDT ,
--- NOTE | 2022-01-02 21:30 | ED.VIS.STROK ---
HPI History of Present Illness Chief Complaint: Ear Problem Informant: patient and family Onset/Context/Timing Onset: Today (Last known well 0200.) Context: Sudden Onset Timing: Continuous Quality and Location: Positive for Difficulty with Ambulation Onset: Patient states her balance is off and she feels that she is going to fall Current Severity: Mild Maximum Severity: Moderate Worsened by: Nothing specific Relieved by: Nothing Associated Symptoms Associated Symptoms: Negative for Headache, Nausea, Vomiting or Chest Pain Narrative Narrative: Patient is an elderly woman who is very hard of hearing. She did not bring her hearing aids. She denies prior history of stroke. She does have history of TIA. She states that several years ago Neelam Soni ordered MRI which revealed no significant pathology. Dopplers of the carotids were unremarkable. Patient olman from the couch at 02 100 and was able to walk to bed. She states she had difficulty sleeping. She states when she attempted to get up out of bed this morning at approximately 08 100 she noticed that her balance was off. She also complained of difficulty sleeping because of the sensation of fullness pain involving her right ear radiating to her neck. She did not note any trouble with speech. She had no difficulty swallowing. She denied paresthesia, anesthesia motors. Denied double vision or blurred vision. She denied loss of vision. She denied cardiac or respiratory symptoms. She denied nausea, vomiting diarrhea. She has an she does have history of hypertension and is on Plavix. Prior similar symptoms: No Recent Illness/Hospitalization: No [facility] Medical History Atherosclerotic heart disease of [place] coronary artery without angina pectoris Bradycardia Chronic neck and back pain Diarrhea Difficulty balancing when standing Essential (primary) hypertension History of pneumothorax Hyperlipidemia Hypocalcemia Hypokalemia Hypoparathyroidism Left-sided chest wall pain Limb weakness Other transient cerebral ischemic attacks and related syndromes Papular rash Parathyroid adenoma Peripheral vascular insufficiency Right renal artery stenosis Shoulder pain Thyroid disease TIA (transient ischemic attack) Home Medications oxybutynin chloride 5 mg tablet 5 mg PO BID #60 tabs 12/01/18 [History Last Taken Unknown] clopidogrel 75 mg tablet 75 mg PO MOWEFR 07/12/21 [History Last Taken Unknown] amlodipine 5 mg tablet 5 mg PO DAILY 07/29/21 [History Last Taken Unknown] melatonin 5 mg PO/SL QHS 01/02/22 [History Last Taken Unknown] Allergy/AdvReac Type Severity Reaction Status Date / Time meperidine HCl [From Demerol] Allergy Swelling, Verified 07/12/21 13:24 tremors Family History Brother Heart disease Mother Heart disease CHF (congestive heart failure) Father Heart disease Sister Heart disease Surgical History H/O parathyroidectomy (2016) History of cataract surgery History of coronary artery stent placement (02/16/12) History of left heart catheterization (09/14/16) History of shoulder surgery Social History (Updated 01/02/22 @ 21:[address] Sean Echavarria MD) household members: none Smoking Status: Former smoker alcohol intake: current details: occasionial ROS ROS ED Constitutional Constitutional ED: Denies chills, fever(s), subjective, sweats or weakness Eyes Eyes: Denies blurry vision, change in vision or diplopia ENT ENT ED: Denies ear pain, rhinorrhea or sore throat Cardiovascular Cardiovascular: Denies chest pain or palpitations Respiratory/Chest Respiratory/Chest: Denies cough, dyspnea or dyspnea on exertion Gastrointestinal Gastrointestinal: Denies abdominal pain, nausea or vomiting Genitourinary Genitourinary ED: Denies dysuria, hematuria or urinary frequency Musculoskeletal Musculoskeletal: Denies arthralgias, back pain, myalgias or neck pain Integumentary Denies Abrasions or rash Neurologic Neurologic: Reports other Details: Greater detailed narrative of HPI ; Denies headache(s), paresthesias or weakness Psychiatric Psychiatric: Denies anxiety Endocrine Endocrinology: Denies polydipsia or polyphagia Hematologic/Lymphatic Hematologic/Lymphatic: Denies easy bleeding or easy bruising EXAM Physical Exam Const Vital Signs: 01/02/22 18:14 01/02/22 18:14 01/02/22 20:53 Temperature 98.1 F 98.1 F Temperature Source Temporal Temporal Pulse Rate 86 86 73 Respiratory Rate 16 18 20 H Blood Pressure 126/77 H 126/77 H 178/73 H Blood Pressure Mean 93 93 108 Pulse Ox 98 98 93 Oxygen Delivery Method Room Air Room Air Room Air 01/02/22 20:55 01/02/22 22:03 Temperature Temperature Source Pulse Rate 88 Respiratory Rate 16 Blood Pressure 183/69 H Blood Pressure Mean 107 Pulse Ox 93 Oxygen Delivery Method Room Air Room Air Positive well nourished and well developed; Negative for obese, cachectic, contractures or unkempt General Appearance ED: well developed and NAD; Negative for unkempt, cachectic or contractures Nutritional Appearance: Negative for cachectic or obese HEENT Reports TM's clear and moist mucous membranes atraumatic Nose: other Other Details: Nares patent no discharge. Posterior pharynx out erythema or exudate. Uvula midline. No deviation of tongue with protrusion. TMs are normal. Tympanic Membrane ED: Yes TM's clear Neck no lymphadenopathy, supple and no JVD Neck Narrative: There is no carotid bruit right or left. Trachea is midline. There is no dysphonia. Chest Wall palpation of chest normal Resp normal respiratory effort and clear to auscultation bilaterally Cardio Rate: regular rate Rhythm: regular rhythm Heart Sounds: S1 normal and S2 normal GI normal to inspection, nondistended, normoactive bowel sounds, soft to palpation, non-tender and non-distended Auscultation: normoactive bowel sounds Back/Spine no CVA tenderness Thoracic Spine / Upper Back: Negative for thoracic spinal tenderness Lumbar Spine / Lower Back: Negative for lumbar spinal tenderness Extremity normal to inspection General Extremety ED: Negative for deformity, edema or tenderness General Extremity: Negative for deformity or edema Neuro oriented x3, CN's II-XII intact bilaterally and no sensory deficits noted [place] Coma Scale: document GCS findings Spontaneous Obeys Commands Oriented 15 Sensorium / Orientation: alert Gait (Neuro): Negative for normal gait Motor Exam: strength 5/5 throughout Psych Psych Narrative: Pleasant elderly woman with normal mood and affect. Appearance: Negative for unkempt Skin no wounds General Skin Exam: Negative for jaundice Lesions: no lesions Rashes: no rashes NIHSS NIHSS Initial: 1a Level of Consciousness: 0 1b LOC Questions (Score 2 if aphasic/stupor): 0 1c LOC Commands (Only score 1st attempt): 0 2 Best Gaze (If aphasic, use reflexive mvmts.): 0 3 Visual: 0 4 Facial Palsy: 0 5 Motor Arm Right (UN = amputation/fusion): 0 5 Motor Arm Left: 0 6 Motor Leg Right: 0 6 Motor Leg Left: 0 7 Limb ataxia (Only + if out of proportion): 0 8 Sensory (Aphasia/stupor=0 or 1, coma=2): 0 9 Best Language: 0 10 Dysarthria (mute, coma=2, intubated=UN): 0 11 Extinction and Inattention (only scored if +): 0 Total Score: 0 MDM MDM MDM Narrative Medical decision making narrative: Patient has mild truncal ataxia. She has slightly broad-based gait. Tandem gait resulted in patient falling to the right. She had difficulty walking backwards as well falling to the right. She was able to walk on her toes and heels. Romberg test with eyes open and close revealed abnormality on the left side which would indicate a problem with proprioception. Stroke order set was initiated because of concern for vertebrobasilar insufficiency. Patient had a negative [place]-Hallpike maneuver. The eye skew test was negative. The hint test was negative. Patient was asked again if she had any discomfort or shortness of breath with activity over the past day or 2. She recalls yesterday having sharp chest pain but did not think much of it. With history of coronary disease and troponin of 89 will have repeat troponin and will need to have cardiac eval as well. Lab Data Attestation: I reviewed the patient's lab results. Lab results narrative: CBC is unremarkable. Coags are normal. Electrolyte panel is unremarkable. Troponin is elevated 89. Patient will need serial troponins. Will contact hospitalist for admission. Labs: Laboratory Results - last 24 hr 01/02/22 01/02/22 01/02/22 20:45 20:45 20:45 WBC 7.1 RBC 4.47 Hgb 13.5 Hct 42.3 MCV 94.6 MCH 30.2 MCHC 31.9 L RDW Std Deviation 47.8 H RDW Coeff of Celestino 13.6 Plt Count 203 MPV 11.3 Immature Gran % (Auto) 1.700 H Neut % (Auto) 70.7 H Lymph % (Auto) 13.2 L [place] % (Auto) 13.6 H Eos % (Auto) 0.1 Baso % (Auto) 0.7 Absolute Neuts (auto) 5.0 Absolute Lymphs (auto) 0.93 Nucleated RBC % 0 PT 12.4 INR 1.0 APTT 28.5 Sodium 139 Potassium 4.4 Chloride 106 Carbon Dioxide 26.0 Anion Gap 7 BUN 25 H Creatinine 0.92 Estim Creat Clear Calc 31.42 Est GFR (MDRD) Af Amer 75 Est GFR (MDRD) Non-Af 62 BUN/Creatinine Ratio 27.3 H Glucose 116 H Calcium 9.0 Troponin I High Sens 89 H Radiography Diagnostic Testing: Clinical Impression(s) from Imaging Studies Brain CT 01/02/22 21:04 IMPRESSION: Chronic involutional changes of the brain. N.B. : The above Results were Read Back by Boris Delgado MD to Mike Maldonado RN, RN, and understanding confirmed on 01/02/2022 21:24:35 (ET). Electronically Signed: Boris Delgado MD at 21:26 EDT Reading Location ID and State: [employer] Tel , Service support , ADDENDUM: 01/02/222132 IMPRESSION: Chronic involutional changes of the brain. N.B. : The above Results were Read Back by Boris Delgado MD to Mike Maldonado RN, RN, and understanding confirmed on 01/02/2022 21:24:35 (ET). Electronically Signed: Boris Delgado MD at 21:26 EDT Reading Location ID and State: [employer] Tel , Service support , Chest X-Ray 01/02/22 21:10 IMPRESSION: Emphysema without pneumonia or atelectasis. Electronically Signed: Boris Delgado MD at 21:27 EDT Reading Location ID and State: [employer] [facility] [employer] Tel , Service support , EKG Initial EKG: Attestation: I personally reviewed and interpreted this EKG as follows: Interpretation: Sinus Rhythm (Monitor theRate is 86. Milliseconds. QS duration 84 ms. QT duration 380 ms. Colbert to left. Decreased anterior force. There is an ossific ST-T wave changes noted lateral leads.) Stroke Documentation Questions Stroke Team Activated: No Reviewed Inclusion/Exclusion criteria: No Was Patient considered for Endovascular Intervention?: No-CTA negative, determined not to be an endovascular candidate IV Alteplase (t-PA) Administered: No No contraindications for IV Alteplase (t-PA) administration.: No Alteplase (t-PA) risks, benefits, alternative discussed: No Critical Care Time Critical Care Time: Yes Critical care time (excluding procedures): 30-74 minutes (32), Including time spent: (History, physical, documentation, review of prior images), Discussing w/Patient &/or Family/[employer]arpenter [employer], Discussing w/Consultants and Arranging Admission or Transfer Discharge Plan Dx/Rx/DC Orders Clinical Impression: Balance problems, Hyperlipidemia, Essential (primary) hypertension, History of coronary artery disease, Non-ST elevated myocardial infarction Disposition Disposition: Acute Care Hospital [facility]
[2022-01-02] MEDS: Aspirin 81 MG TAB.CHEW 324 MG PO (21:52)
--- NOTE | 2022-01-02 21:58 | PCM.HP.STD ---
HPI - General General Date of Admission: 01/02/22 Date of Service: 01/02/22 Chief Complaint: Recent ear infection recently, R ear pain/fullness, chest pain, dizziness. HPI Narrative The patient is an 86 y/o F w/ PMHx: Former tobacco use, HTN, HLD, Chronic neck and back pain, CAD s/p PCI, Hx renal artery stenosis, Hypoparathyroidism, Hx TIA who presents to the [facility] ED on 01/02/22 with history of recent ear infection, placed on 12/18/21 on cefdinir regimen per Dr. Deven Gillis ENT with last known well at approximately 2100 on day of presentation with following the sudden onset of ongoing difficulty ambulating with sensation of feeling off balance as if she is going to fall, worse with any activity attempts with no headache, nausea, emesis, room spinning sensation with concurrent sensation of fullness in the right ear with discomfort and pain with radiation towards her neck with no vision changes or any other specific neurological focal deficits however not improving prompted ED evaluation. NIH stroke scale in the emergency room per ED physician 0. In the ED patient does admit to chest pain noted in the midsternal region without radiation described as a sharp aching, rated 4-5/10 in severity with associated mild dyspnea, diaphoresis, dizziness, lasting 15-20 minutes which resolved following with repeat event earlier in the day on day of ED presentaion. She notes both chest pain events were while she was exerting herself, i.e. going up her stairs. Work-up in the ED included T98.1, heart rate 86, BP initially 126/77 with most recent repeat 178/73, respiratory rate 16, 98% on room air, CBC with WBC 7.1, hemoglobin 13.5, platelet 203 with increased immature granulocytes, unremarkable coags, BMP with BUN/creatinine 25/0.92, glucose 116, troponin 89, chest x-ray with emphysematous changes with no acute cardiopulmonary findings otherwise, CT of the brain with chronic involutional changes with no acute intracranial findings otherwise, EKG with sinus rhythm with nonspecific ST-T wave changes in the lateral leads with no acute evidence of ischemia. In the ED administered full strength ASA 324 mg po x 1. PFSH Medical History Atherosclerotic heart disease of [place] coronary artery without angina pectoris Bradycardia Chronic neck and back pain Diarrhea Difficulty balancing when standing Essential (primary) hypertension History of pneumothorax Hyperlipidemia Hypocalcemia Hypokalemia Hypoparathyroidism Left-sided chest wall pain Limb weakness Other transient cerebral ischemic attacks and related syndromes Papular rash Parathyroid adenoma Peripheral vascular insufficiency Right renal artery stenosis Shoulder pain Thyroid disease TIA (transient ischemic attack) Home Medications oxybutynin chloride 5 mg tablet 5 mg PO BID #60 tabs 12/01/18 [History Last Taken Unknown] clopidogrel 75 mg tablet 75 mg PO MOWEFR 07/12/21 [History Last Taken Unknown] amlodipine 5 mg tablet 5 mg PO DAILY 07/29/21 [History Last Taken Unknown] melatonin 5 mg PO/SL QHS 01/02/22 [History Last Taken Unknown] Allergy/AdvReac Type Severity Reaction Status Date / Time meperidine HCl [From Demerol] Allergy Swelling, Verified 07/12/21 13:24 tremors Family History Brother Heart disease Mother Heart disease CHF (congestive heart failure) Father Heart disease Sister Heart disease Surgical History H/O parathyroidectomy (2016) History of cataract surgery History of coronary artery stent placement (02/16/12) History of left heart catheterization (09/14/16) History of shoulder surgery Social History (Updated 01/02/22 @ 21:[address] Sean Echavarria MD) household members: none Smoking Status: Former smoker alcohol intake: current details: occasionial ROS ROS Narrative Admission Review of Systems: CONSTITUTIONAL: No weight loss, fever, chills, + weakness or fatigue. HEENT: + R ear fullness, prior pain. Eyes: No visual loss, blurred vision, double vision or yellow sclerae. Ears, Nose, Throat: No hearing loss, sneezing, congestion, runny nose or sore throat. SKIN: No rash or itching, lesions, wounds. CARDIOVASCULAR: + chest pain, chest pressure or chest discomfort, No palpitations, edema, orthopnea, syncopal events. RESPIRATORY: + Transient shortness of breath with CP, No cough or sputum, wheezing, hemoptysis. GASTROINTESTINAL: + Transient nausea with CP, No anorexia, vomiting or diarrhea, abdominal pain, melena, BRBPR. GENITOURINARY: No dysuria, frequency, urgency or retention. NEUROLOGICAL: + Off balance/sensation falling, dizziness, No headache, syncope, paralysis, ataxia, numbness or tingling in the extremities, focal weakness, change in bowel or bladder control, seizure. MUSCULOSKELETAL: No muscle, back pain, joint pain or stiffness. HEMATOLOGIC: + anemia, bleeding or bruising. LYMPHATICS: No enlarged nodes. No history of splenectomy. PSYCHIATRIC: No history of depression or anxiety. ENDOCRINOLOGIC: + reports of sweating. No cold or heat intolerance. No polyuria or polydipsia. ALLERGIES: No history of asthma, hives, eczema or rhinitis. Vital Signs Vital Signs Vital Signs: 01/02/22 18:14 01/02/22 18:14 01/02/22 20:53 Temperature 98.1 F 98.1 F Temperature Source Temporal Temporal Pulse Rate 86 86 73 Respiratory Rate 16 18 20 H Blood Pressure 126/77 H 126/77 H 178/73 H Blood Pressure Mean 93 93 108 Pulse Ox 98 98 93 Oxygen Delivery Method Room Air Room Air Room Air 01/02/22 20:55 Temperature Temperature Source Pulse Rate Respiratory Rate Blood Pressure Blood Pressure Mean Pulse Ox Oxygen Delivery Method Room Air Weight Weight: 101 lb 13.657 oz Body Mass Index (BMI) 17.4 Physical Exam Narrative Physical Examination: General: Awake, alert, oriented x 3, hard of hearing and does not have her hearing aids in but if speaking closely and slowly there is no issue, remains cooperative, seated upright in the ED bed in no apparent distress, denies any current chest. Skin: Normal color, normal turgor, no icterus, no cyanosis. HEENT: AT/NC, EOMI, PERRLA, MMM, no carotid bruits or JVD noted, bilateral TM visualized, well appearing with some cerumen. Lungs: Mild diminished, greater bases, appropriate effort, no rales, ronchi or wheezing. Heart: Currently regular rate and rhythm; no gallop, rub audible. Abdomen: Soft, thin habitus, NTTP, ND, normal BS, no HSM. Extremities: No cyanosis, clubbing, or edema. Neurological: Patient awake, alert, oriented as noted, cognitive function appears intact; pupils equally reactive to light and accommodation, cranial nerves grossly normal, moving all 4 extremities, no focal deficits, sensation intact, finger-nose and heel pearl appropriate, equivocal Babinski, strength moderately global decrease secondary to advanced age and underlying comorbidities. Psychiatric: Affect appears mildly fatigued otherwise normal, no acute evidence of depressive or anxiety feelings. Results Lab / Micro Data Result Diagrams: 01/02/22 20:45 01/02/22 20:45 Labs: Laboratory Results - last 24 hr 01/02/22 20:45: WBC 7.1, RBC 4.47, Hgb 13.5, Hct 42.3, MCV 94.6, MCH 30.2, MCHC 31.9 L, RDW Std Deviation 47.8 H, RDW Coeff of [place] 13.6, Plt Count 203, MPV 11.3, Immature Gran % (Auto) 1.700 H, Neut % (Auto) 70.7 H, Lymph % (Auto) 13.2 L, [place] % (Auto) 13.6 H, Eos % (Auto) 0.1, Baso % (Auto) 0.7, Absolute Neuts (auto) 5.0, Absolute Lymphs (auto) 0.93, Nucleated RBC % 0 01/02/22 20:45: PT 12.4, INR 1.0, APTT 28.5 01/02/22 20:45: Sodium 139, Potassium 4.4, Chloride 106, Carbon Dioxide 26.0, Anion Gap 7, BUN 25 H, Creatinine 0.92, Estim Creat Clear Calc 31.42, Est GFR (MDRD) Af Amer 75, Est GFR (MDRD) Non-Af 62, BUN/Creatinine Ratio 27.3 H, Glucose 116 H, Calcium 9.0, Troponin I High Sens 89 H Radiology Impression Brain CT 01/02/22 21:04 IMPRESSION: Chronic involutional changes of the brain. N.B. : The above Results were Read Back by Boris Delgado MD to Mike Maldonado RN, RN, and understanding confirmed on 01/02/2022 21:24:35 (ET). Electronically Signed: Boris Delgado MD at 21:26 EDT , ADDENDUM: 08/26/22 2133 IMPRESSION: Chronic involutional changes of the brain. N.B. : The above Results were Read Back by Boris Delgado MD to Mike Maldonado RN, RN, and understanding confirmed on 01/02/2022 21:24:35 (ET). Electronically Signed: Boris Delgado MD at 21:26 EDT , Chest X-Ray 01/02/22 21:10 IMPRESSION: Emphysema without pneumonia or atelectasis. Electronically Signed: Boris Delgado MD at 21:27 EDT , Assessment & Plan Assessment/Plan (1) Balance problems: (2) Non-ST elevated myocardial infarction: PLAN: Plan The patient is an 86 y/o F w/ PMHx: Former tobacco use, HTN, HLD, Chronic neck and back pain, CAD s/p PCI, Hx renal artery stenosis, Hypoparathyroidism, Hx TIA who presents to the [facility] ED on 01/02/22 with history of recent ear infection, placed on 12/18/21 on cefdinir regimen per Dr. Deven Gillis ENT with last known well at approximately 2100 on day of presentation with following the sudden onset of ongoing difficulty ambulating with sensation of feeling off balance as if she is going to fall, worse with any activity attempts with no headache, nausea, emesis, room spinning sensation with concurrent sensation of fullness in the right ear with discomfort and pain with radiation towards her neck with no vision changes or any other specific neurological focal deficits with additional history of recent episodes of chest pain, worse with exertion x 2 days. #1. Imbalance, gait disturbance concerning for potential posterior CVA with prior history of TIA: Will admit to PCU, will obtain MRI Brain, MRA Head and carotid US, ECHO, PT/OT/Speech/Nutrition evaluation per protocol. Consider follow-up Neurology evaluation once further work-up/MRI series obtained. Will allow permissive HTN, maintain on asa/plavix, add low-dose statin w/ AM FLP, fall precautions. Magnesium, TSH, free T4 pending as well. #2. NSTEMI with history of recent chest pain: EKG in ED sinus rhythm with nonspecific ST T wave changes with no acute evidence of ischemia, CXR w/ no acute cardiopulmonary findings with chronic COPD type change, initial trop 89 with repeat delta further elevated 146. Will place on a monitored bed and continue to obtain serial cardiac enzymes and EKGs. Echocardiogram requested. FLP in AM. Magnesium level requested. Maintain on aspirin, Plavix, adding low-dose statin with FLP in AM, initiate heparin drip pending enzyme trending bhavna. NG, morphine. Cardiology consulted, pending. If MRI negative will immediately resume patient medications although these may need to be altered given presentation but of note she does have bradycardia listed in her history. #3. CAD: Status post PCI, will continue Plavix, add aspirin, holding hypertensive regimen given acute presentation, add low-dose statin given advanced age with acute presentation. #4. Hypertension: We will maintain permissive hypertension with as needed agents per stroke protocol. #5. Hyperlipidemia: Adding low-dose statin given advanced age with acute presentation as noted, FLP in AM. #6. 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 #7. History of right renal artery stenosis: We will continue aspirin, Plavix, temporary permissive hypertension as noted, adding low-dose statin. #8. Former tobacco use with suspected underlying COPD: Chest x-ray with chronic COPD type changes, will have as needed albuterol, not any routine regimen, encourage head of bed and I-S, encourage continued tobacco cessation. #9. DVT prophylaxis: SCDs, heparin drip as noted given NSTEMI pending enzyme trending bhavna. #10. CODE status: Patient ORIN is her niece Rosa Davis and living will is currently in place. Discussed CODE status at length including difference between FULL code, DNR-CCA and DNR-CC status. Following discussions about the differences in these status, requested Full Code status at this time. Discussed given her age and history her likely poor prognosis if something acute should happen and she does note that if the initial event required CPR and this was unsuccessful she would not want prolonged intervention and transition to comfort status at that time. Advanced Care Planning Face to Face Time: 16 minutes. Charges/Coding Visit Charges Inpatient E&M: 88676 Init Hosp L3 Procedures Hospitalists Procedures: 96538 Advncd Care Plan 30 Min
[2022-01-02 22:03] VITALS: BP 183/69; PULSE 88; RESP 16; O2SAT 93
--- NOTE | 2022-01-02 22:16 | EKG12_ITS ---
Test Reason : NSTEMI ADMIT Blood Pressure : / mmHG Vent. Rate : 064 BPM Atrial Rate : 064 BPM P-R Int : 100 ms QRS Dur : 072 ms QT Int : 446 ms P-R-T Axes : 055 -45 089 degrees QTc Int : 460 ms Somatic/Motion Artifact Atrial-paced rhythm Left axis deviation Minimal voltage criteria for LVH, may be normal variant ( [place] product ) Inferior infarct , age undetermined , cannot be excluded Anterior infarct , age undetermined , cannot be excluded Abnormal ECG Confirmed by MARLIN RUFF, REMY ([id number]), commissioning editor MAXINE TEJADA ([id number]) on 01/06/2022 8:00:46 AM Referred By: Confirmed By:REMY ISAAC MD
[2022-01-02 22:42] VITALS: BP 175/60; PULSE 68; RESP 18; TEMP 37; O2SAT 96
[2022-01-02 22:47] LABS: Magnesium 1.8 mg/dL (1.6-2.6)
[2022-01-02 23:56] LABS: Reflex Troponin-HS? (from REC) N
[2022-01-02 23:57] LABS: Troponin-I HS (w/2H Reflex) 146 pg/mL (3.0-54.0)
[2022-01-03] VITALS (13 sets, daily range): BP systolic 140–164; BP diastolic 46–70; PULSE 58–73; RESP 16–18; TEMP 36.7–36.8; O2SAT 93–97; BMI 17.2
--- NOTE | 2022-01-03 00:07 | ECHOD_ITS ---
Reason For Study: Elevated Troponins/CVA Procedure This was a 2D Doppler, Color Flow transthoracic echocardiogram. Exam performed portable in patient room. Left Ventricle Normal LV size. The estimated ejection fraction is 45-50 %. Unable to assess diastolic dysfunction. Hypokinesis of the mid inferior wall, anteroseptal wall and mid septum. Right Ventricle Normal RV size. Normal systolic function. Atria The left atrium is mildly enlarged. Normal right atrium. No doppler evidence for ASD. Bubble contrast study negative for right to left interatrial shunt. Mitral Valve There is moderate mitral annular calcification. There is no mitral valve stenosis. Trivial mitral valve insufficiency. Tricuspid Valve There is no tricuspid stenosis. Trivial tricuspid valve insufficiency. Pulmonary artery systolic pressure is 50 mmHg. Aortic Valve Trisinus/trileaflet aortic valve. There is no aortic stenosis. Moderately severe (3+) aortic valve insufficiency. Pulmonic Valve There is no pulmonic valvular stenosis. No pulmonic valve insufficiency. Great Vessels Normal aortic root. Pericardium/Pleural No pericardial effusion. Medication Performed a rapid injection of agitated mix of 9 cc saline and 1cc air to assess for atrial septal defect. MMode/2D Measurements & Calculations LVIDd: 3.7 cm IVSd: 1.0 cm Ao root diam: 3.4 cm LVIDs: 2.9 cm LVPWd: 0.89 cm LA dimension: 3.6 cm RVDd: 3.7 cm FS: 21.2 % LAV(MOD-bp): 63.0 ml LA A4 area: 20.4 cm2 RA A4 area: 17.1 cm2 LAV(MOD-bp) Indexed: 43.2 ml/m2 LAV(MOD-sp2): 62.9 ml LAV(MOD-sp4): 55.2 ml Time Measurements MV dec time: 0.46 sec Doppler Measurements & Calculations MV E max oleksandr: 52.1 cm/sec Lat Peak E' Oleksandr: 4.4 cm/sec Med Peak E' Oleksandr: 4.0 cm/sec MV A max oleksandr: 61.7 cm/sec E/E' lat: 12.0 E/E' med: 13.1 MV E/A: 0.84 MV dec slope: 115.7 cm/sec2 Ao V2 max: 157.6 cm/sec AI max oleksandr: 437.7 cm/sec Ao max P.9 mmHg AI max P.7 mmHg Ao V2 mean: 102.8 cm/sec AI dec slope: 295.8 cm/sec2 Ao mean P.8 mmHg AI P1/2t: 433.4 msec Ao V2 VTI: 37.0 cm LV V1 max: 99.1 cm/sec MR max oleksandr: 498.9 cm/sec PA V2 max: 77.0 cm/sec LV V1 max P.9 mmHg MR max P.6 mmHg LV V1 mean P.9 mmHg MR mean oleksandr: 407.4 cm/sec LV V1 mean: 63.7 cm/sec MR mean P.6 mmHg LV V1 VTI: 23.1 cm MR VTI: 209.3 cm TR max oleksandr: 265.6 cm/sec TR max P.1 mmHg ECHO/Echo Complete Interpretation Summary The estimated ejection fraction is 45-50 %. The left atrium is mildly enlarged. Trivial mitral valve insufficiency. Moderately severe (3+) aortic valve insufficiency. Ordering Physician: Karyna Nava Referring Physician: Lisa Deluna M.D. Performed By: Dewayne Masters RCS
--- NOTE | 2022-01-03 00:07 | MRI_ITS ---
HISTORY: CVA. TECHNIQUE: Routine [place]/brain 3D time of flight MR angiogram protocol was performed without contrast. 3D reconstructions were reviewed. 195 images. COMPARISON: None. FINDINGS: ICAs: No significant stenosis at the intracranial/visualized segments. ACAs: No significant stenosis at the visualized segments. MCAs: No significant stenosis at the visualized segments. measuring clerk: No significant stenosis at the visualized segments. Right origin. BASILAR ARTERY: No significant stenosis. VERTEBRAL ARTERIES: No significant stenosis at the intradural/visualized segments. No evidence of intracranial aneurysm or vascular malformation. MRI/MRA Head ONLY without Contrast IMPRESSION: No evidence for significant stenosis, large vessel occlusion, or other focal vascular abnormality in the [place] region. Electronically Signed: Tess Juan MD at 10:38 EDT ,
--- NOTE | 2022-01-03 00:07 | MRI_ITS ---
HISTORY: CVA. TECHNIQUE: Multiplanar and multisequence MR images of the brain were obtained without contrast. 283 images. COMPARISON: CT prior day, MR 01/10/2020. FINDINGS: BRAIN PARENCHYMA: Mild chronic white matter changes. No abnormal focus of restricted diffusion. No acute intracranial hemorrhage identified. CSF SPACES: Generalized volume loss. No significant midline shift or other mass effect.No extra-axial fluid collection. VASCULAR SYSTEM: Major intracranial flow voids are maintained. PARANASAL SINUSES AND MASTOID AIR CELLS: Small left ethmoid mucous retention cyst. ORBITS: Bilateral lens resections. MRI/Brain without Contrast IMPRESSION: No evidence for acute infarct. Chronic involutional changes. Electronically Signed: Tess Juan MD at 10:42 EDT ,
[2022-01-03] MEDS: 0.9% Normal Saline 1,000 ML 100 ML IV (00:27)
[2022-01-03] MEDS: Heparin Injection (Vial) 5,000 UNIT/ML VIAL 3500 UNIT IV (01:05)
[2022-01-03] MEDS: MELATONIN 10 MG TABLET 5 MG PO (01:06)
[2022-01-03] MEDS: HEPARIN/D5w 25,000 UNITS 25,000 UNITS/250 ML IV.SOLN. 7 UNITS CONT INF (01:22)
[2022-01-03 03:02] LABS: Absolute Lymphocyte Count 1.29 X10^3/uL (0.83-4.51); Absolute Neutrophil Count 3.9 X10^3/uL (2.0-7.7); Basophil# 0.05 X10^3/uL; Basophil% 0.8 % (0-1); Eosinophil# 0.01 X10^3/uL; Eosinophils% 0.2 % (0-5); Hematocrit 39.1 % (37-47); Hemoglobin 12.7 g/dL (12.0-15.0); Lymphocyte # 1.29 X10^3/ul (0.83-4.51); Mean Corp Hgb Conc 32.5 g/dL (32-36); Mean Corpuscular Hgb 30.6 pg (27.0-32.0); Mean Corpuscular Volume 94.2 fL (81-99); Mean Platelet Vol. 11.5 fl (6.2-12.0); Monocyte# 1.08 X10^3/uL; Monocyte% 16.7 % (0-10); NRBC Flagged by Analyzer 0 % (0-5); Neutrophil # 3.91 X10^3/uL (2.7-7.7); Neutrophil % 60.4 % (47-70); Platelet Count 208 K/mm3 (150-450); RBC Distribution Width CV 13.5 % (11.6-14.6); RBC Distribution Width SD 46.9 fl (35.1-43.9); Red Blood Count 4.15 M/mm3 (4.2-5.4); White Blood Count 6.5 K/mm3 (4.4-11.0)
[2022-01-03 03:25] LABS: Troponin-I HS 256 pg/mL (3.0-54.0)
[2022-01-03 03:32] LABS: ALB/GLOB Ratio 0.9 RATIO (0.9-2.4); AST(SGOT) 18 U/L (15-37); Alanine Aminotransfer ALT/SGPT 17 U/L (13-56); Albumin, Serum 2.8 g/dL (3.2-5.0); Alkaline Phosphatase 43 U/L (45-117); Anion Gap 6 (5-15); BUN 21 mg/dL (7-18); BUN/Creat Ratio 24.4 RATIO (10-20); Calcium,Total 7.9 mg/dL (8.5-10.1); Chloride 109 mmol/L (98-107); Cholesterol 142 mg/dL (200); Creatinine, Serum 0.86 mg/dL (0.55-1.02); EST Glomerular Filtration Rate 66 mL/min (>60); Est Glom Filt Rate - Afr Amer 80 mL/min (>60); Estimated Creatinine Clearance 33.03 ml/min; Globulin 3.1 g/dL (2.2-4.2); Glucose 110 mg/dL (74-106); High Density Lipoprotein 83 mg/dL; Potassium 4.1 mmol/L (3.5-5.1); Protein, Total 5.9 g/dL (6.4-8.2); Sodium Level 141 mmol/L (136-145); T4 Free Direct 1.01 ng/dL (0.76-1.46); Thyroid Stim Hormone (TSH) 1.47 uIU/mL (0.358-3.74); Triglycerides 39 mg/dL; Very Low Density Lipoprotein 8 mg/dL (5-40)
[2022-01-03 08:31] LABS: Partial Thromboplast Time 88.7 Seconds (24.1-36.2)
[2022-01-03 08:58] LABS: CPK Total, Creatine Kinase 69 U/L (26-192)
[2022-01-03] MEDS: Clopidogrel Bisulfate 75 MG Tablet PO (08:58)
[2022-01-03] MEDS: Aspirin 81 MG TAB.CHEW PO (08:58)
[2022-01-03] MEDS: Oxybutynin 5 MG Tablet PO (08:59)
[2022-01-03] MEDS: Acetaminophen 325 MG Tablet 650 MG PO (09:06)
[2022-01-03 09:08] LABS: Hemoglobin A1c 5.8 % (3.8-5.6)
[2022-01-03] MEDS: 0.9% Saline Lock 10 ML Syringe IV (10:47)
[2022-01-03 11:24] LABS: Troponin-I HS 136 pg/mL (3.0-54.0)
--- NOTE | 2022-01-03 14:10 | DCINST_ITS ---
Discharge Instructions Diet Discharge Diet: Low fat / Low cholesterol and 2000 mg Sodium Diet Activity Discharge Activity: Return to Normal Activity and May Not Drive Weight Bearing Status: Weight bearing as tolerated Dressing / Incision Call your doctor if you observe: Fever of 101 or Higher, Coldness, Increased Pain, Numbness or Tingling, Change in Color, Inability to urinate, Inability to have a bowel movement, Using more than 1 pad per hour, Shortness of breath, Dizziness, Fainting spells, Swelling in the ankles, Chest pain, Increased palpitations (irregular heartbeat), Calf discomfort and Uncontrolled pain Follow Up Care Test Results: Test results from this visit will be discussed in further detail at your follow- up appointment, if applicable. Discharge Plan Admission Admit Date/Time: 01/02/22 22:10 Primary Reason for Your Visit: Mild dizziness, loss of balance/disequilibrium Attending Provider: Singh Colin Primary Care Provider: Lisa Deluna Consulting Providers: Radu Mcintosh ; Karyna Nava Discharge Orders/Prescriptions Prescriptions: No Action oxybutynin chloride 5 mg tablet 5 mg PO BID Qty: 60 clopidogrel 75 mg tablet 75 mg PO MOWEFR melatonin 5 mg PO/SL QHS amlodipine 5 mg tablet 5 mg PO DAILY Referrals / Follow Up: Lisa Deluna DO [Primary Care Provider] -
--- NOTE | 2022-01-03 14:15 | PCM.PN.HOSP ---
Subjective Subjective Seen and examined. Patient was admitted yesterday through ED. She came mainly for right ear pain with radiation to right neck along with dizziness and weakness. She denies tinnitus but has mild hearing loss in the right ear. This started with left ear pain and infection and she took antibiotic for about 10 days and got better. She saw ENT About 2 weeks ago and had wax removed. She was off balance, ataxia and therefore was admitted to rule out a stroke. She denies any recent onset of chest pain or shortness of breath either at rest or activity or exertion. She does elliptical at [employer] and does not get any chest pain or shortness of breath or pressure. Her troponins were elevated as done for stroke work-up. Patient started on IV heparin drip and was admitted. Objective Data Objective Data Vital Signs: Vital Signs Temp Pulse Resp BP Pulse Ox O2 Del Method 98.2 F 61 16 155/50 H 96 Room Air 01/03/22 11:32 01/03/22 11:32 01/03/22 11:32 01/03/22 11:32 01/03/22 11:32 01/03/22 13:29 Oxygen Delivery Method Room Air Weight: 100 lb 1.438 oz Body Mass Index (BMI) 17.2 Intake & Output: Intake and Output for Last 24 Hours 01/01/22 01/02/22 01/03/22 23:59 23:59 23:59 Intake Total 1376.22 / 1376.22 Balance 1376.22 / 1376.22 Lab / Micro Data Result Diagrams: 01/03/22 02:50 01/03/22 02:50 Labs: Laboratory Results - last 24 hr 01/02/22 20:45: WBC 7.1, RBC 4.47, Hgb 13.5, Hct 42.3, MCV 94.6, MCH 30.2, MCHC 31.9 L, RDW Std Deviation 47.8 H, RDW Coeff of Celestino 13.6, Plt Count 203, MPV 11.3, Immature Gran % (Auto) 1.700 H, Neut % (Auto) 70.7 H, Lymph % (Auto) 13.2 L, [place] % (Auto) 13.6 H, Eos % (Auto) 0.1, Baso % (Auto) 0.7, Absolute Neuts (auto) 5.0, Absolute Lymphs (auto) 0.93, Nucleated RBC % 0 01/02/22 20:45: PT 12.4, INR 1.0, APTT 28.5 01/02/22 20:45: Sodium 139, Potassium 4.4, Chloride 106, Carbon Dioxide 26.0, Anion Gap 7, BUN 25 H, Creatinine 0.92, Estim Creat Clear Calc 31.42, Est GFR (MDRD) Af Amer 75, Est GFR (MDRD) Non-Af 62, BUN/Creatinine Ratio 27.3 H, Glucose 116 H, Calcium 9.0, Troponin I High Sens 89 H 01/02/22 22:00: Troponin I High Sens 146 H* 01/02/22 22:00: Magnesium 1.8 01/03/22 02:50: WBC 6.5, RBC 4.15 L, Hgb 12.7, Hct 39.1, MCV 94.2, MCH 30.6, MCHC 32.5, RDW Std Deviation 46.9 H, RDW Coeff of Celestino 13.5, Plt Count 208, MPV 11.5, Immature Gran % (Auto) 1.900 H, Neut % (Auto) 60.4, Lymph % (Auto) 20.0, [place] % (Auto) 16.7 H, Eos % (Auto) 0.2, Baso % (Auto) 0.8, Absolute Neuts (auto) 3.9, Absolute Lymphs (auto) 1.29, Nucleated RBC % 0 01/03/22 02:50: Sodium 141, Potassium 4.1, Chloride 109 H, Carbon Dioxide 26.0, Anion Gap 6, BUN 21 H, Creatinine 0.86, Estim Creat Clear Calc 33.03, Est GFR (MDRD) Af Amer 80, Est GFR (MDRD) Non-Af 66, BUN/Creatinine Ratio 24.4 H, Glucose 110 H, Calcium 7.9 L, Total Bilirubin 0.60, AST 18, ALT 17, Alkaline Phosphatase 43 L, Total Protein 5.9 L, Albumin 2.8 L, Globulin 3.1, Albumin/Globulin Ratio 0.9, Triglycerides 39, Cholesterol 142, LDL Cholesterol 51, VLDL Cholesterol 8, HDL Cholesterol 83, TSH 1.47, Free T4 1.01 01/03/22 02:50: Hemoglobin A1c 5.8 H 01/03/22 02:50: Troponin I High Sens 256 H* 01/03/22 07:14: APTT 88.7 H 01/03/22 07:14: Total Creatine Kinase 69 01/03/22 10:40: Troponin I High Sens 136 H* Radiography Diagnostic Testing: Radiology Impression Brain CT 01/02/22 21:04 IMPRESSION: Chronic involutional changes of the brain. N.B. : The above Results were Read Back by Boris Delgado MD to Mike Maldonado RN, RN, and understanding confirmed on 01/02/2022 21:24:35 (ET). Electronically Signed: Boris Delgado MD at 21:26 EDT Reading Location ID and State: [place] Tel , Service support , ADDENDUM: 01/02/222132 IMPRESSION: Chronic involutional changes of the brain. N.B. : The above Results were Read Back by Boris Delgado MD to Mike Maldonado RN, RN, and understanding confirmed on 01/02/2022 21:24:35 (ET). Electronically Signed: Boris Delgado MD at 21:26 EDT Reading Location ID and State: [employer] / [facility] Tel , Service support , Chest X-Ray 01/02/22 21:10 IMPRESSION: Emphysema without pneumonia or atelectasis. Electronically Signed: Boris Delgado MD at 21:27 EDT Reading Location ID and State: [id number] / [facility] Tel , Service support , Physical Exam Narrative Physical exam General: Alert, Oriented x3, Cooperative HEENT: On otoscopic exam, left and right EAC Clean, light reflex not clear/foggy in right ear. Left ear reflex good. Mild tenderness over right mastoid process. No tinnitus. Atraumatic, PERRLA. Visual field and EOMI intact. No quadrantanopia/immune opioid analgesia. Oral: No Gingival or Mucosal Lesions/ Ulcerations Neck: Supple, No JVD, Negative Carotid Bruits Lungs: Air entry diminished in bilateral lung bases. No crepitation/rhonchi Cardiovascular: Regular rate, Regular Rhythm, Normal S1, Normal S2, No murmurs Abdomen: Bowel Sounds Present, Soft, Non Tender, Non-Distended : No renal angle tenderness. No suprapubic tenderness. Extremities: No edema, Capillary Refill Less than 3 Seconds Skin: No rashes, No breakdown Musculoskeletal: No Tenderness to Palpation of Joints or Extremities Neurological: finger-nose and heel pearl tests are normal. Muscle strength 4+/5 at major joints. No focal weakness. NIH stroke 2: Minor flattening of nasolabial fold and mild to moderate sensory loss. Psych/Mental Status: Normal Affect, Appropriate. Assessment & Plan Assessment/Plan (1) Balance problems: (2) Non-ST elevated myocardial infarction: PLAN: Plan This 86-year-old female with multiple comorbidities including coronary artery status post PCI was admitted with loss of balance, ataxia, high troponin, recent left ear infection treated with cefdinir by Dr. Deven Gillis and high troponin. 1. 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 NIH are consistently was 2. MRI brain was done reported no acute infarct. Chronic involutional changes. Patient had MRA of head reported no evidence of significant stenosis large vessel occlusion or other focal vascular abnormalities. TSH and free T4 normal. Fasting profile within normal limit, LDL 51, HDL 83. A1c 5.8%. Serum magnesium level normal. Discontinue NIH stroke scale. #1. Imbalance, gait disturbance concerning for potential posterior CVA with prior history of TIA: Will admit to PCU, will obtain MRI Brain, MRA Head and carotid US, ECHO, PT/OT/Speech/Nutrition evaluation per protocol. Consider follow-up Neurology evaluation once further work-up/MRI series obtained. Will allow permissive HTN, maintain on asa/plavix, add low-dose statin w/ AM FLP, fall precautions. Magnesium, TSH, free T4 pending as well. #2. NSTEMI with history of recent chest pain: As per H&P, patient had midsternal chest pain without radiation, sharp aching, 4-09/2009 in severity acid with mild dyspnea and diaphoresis dizziness lasting 15 to 20 minutes. Serial troponin high but showing downward trend. EKG in ED with nonspecific ST-T changes with no acute and severe ischemia. 2D echo done shows EF 45 to 50%, hypokinesis of mid inferior wall, anteroseptal wall and mid septum. Moderately severe 3+ AI. No aortic stenosis. Left atrium mildly enlarged. Normal right atrium. Bubble contrast read negative of right to left interatrial shunt patient on IV heparin drip, clopidogrel, baby aspirin. Asp Net Developer consulted. Discussed with Dr. Mcintosh #3. CAD: Status post PCI: Patient follows Dr. Zayas last office visit in May 2021. As per last cardiac cath in 2016 due to chest discomfort, she has 20% in-stent restenosis in the LAD, 30% in-stent restenosis in RCA, normal left main, diagonal 20%. On low-dose statin. #4. Hypertension: maintain permissive hypertension with as needed agents per stroke protocol. #5. Hyperlipidemia: Adding low-dose statin given advanced age. #6. 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 #7. History of right renal artery stenosis: continue aspirin, Plavix, temporary permissive hypertension as noted, adding low-dose statin. #8. Former tobacco use with suspected underlying COPD: Chest x-ray with chronic COPD type changes, will have as needed albuterol, not any routine regimen, encourage head of bed and I-S, encourage continued tobacco cessation. #9. DVT prophylaxis: SCDs, heparin drip as noted given NSTEMI pending enzyme trending bhavna. #10. CODE status: Patient ORIN is her niece Rosa Davis and living will is currently in place. Full code. Total time of the visit including total time spent in counseling or coordination of care, (more than 50% of the total time, spent in obtaining medical information from nurses and other ancillary care providers,explaining to the patient about labs, imaging, diagnosis and management of active complex medical conditions), otoscopic exam, discussion with diesel machinist, review of labs, 2D echo and imaging is 45 minutes. Charges/Coding Visit Charges Inpatient E&M: 41697 Subs Hosp L3
--- NOTE | 2022-01-03 14:40 | CASEMGMT ---
ALONSO MCFARLAND assessment: Face to Face with patient for initial transition planning/care coordination assessment. ALONSO MCFARLAND introduced self and role at [facility], pt voices understanding and consents to assessment. Pt is sitting up in bed in no distress on room air. Pt is A/Ox4 and answers all questions appropriately. Care providers, pharmacy,?and demographics verified. ? Presentation: Pt c/o right ear pain radiating to right neck and dizziness Admitting dx: NSTEMI, concern posterior CVA PCP: Regi Specialists: [facility] Pharmacy: [facility] Insurance: MCR A/B, Unam Prescription Benefit:?Yes Living Will/HPOA: Pt does have LW/HPOA and is aware that they are not on file at [facility]. 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 LNOK: Siena Anna, friend; Rosa Davis, niece Living Arrangements: Pt lives alone in 2 story home and states no concerns at home. Pt is independent with ADL's. Transportation: Pt drives self and states no transportation concerns. DME/HHC: Pt states has a tub bench, grab bars, and banisters on all stairs and states no need for any further DME. Pt states no hx of HHC or SNF in past. Therapy states no further therapy recommended. Pt state no concerns with going home at time of discharge. Pt is retired. Pt states does not smoke cigarettes(quit in 1979) or drink ETOH. Pt state no further concerns/needs. CM to follow for any further questions/concerns/needs. Advised pt to ask for CM if any further questions/concerns/needs arise, voices understanding. ? Pt Goal: Home Plan: [place] ALONSO MCFARLAND
[2022-01-03 15:08] LABS: Partial Thromboplast Time 43.8 Seconds (24.1-36.2)
[2022-01-03] MEDS: HEPARIN/D5w 25,000 UNITS 25,000 UNITS/250 ML IV.SOLN. 5.5 UNITS CONT INF (15:27)
--- NOTE | 2022-01-03 16:44 | NURSING ---
Patient ambulated in don around unit with this nurse. Steady gait noted. Denies any SOB of dizziness.
--- NOTE | 2022-01-03 16:46 | DCINST_ITS ---
Discharge Instructions Diet Discharge Diet: Low fat / Low cholesterol and 2000 mg Sodium Diet Activity Discharge Activity: Return to Normal Activity and May Not Drive Weight Bearing Status: Weight bearing as tolerated Dressing / Incision Call your doctor if you observe: Fever of 101 or Higher, Coldness, Increased Pain, Numbness or Tingling, Change in Color, Inability to urinate, Inability to have a bowel movement, Using more than 1 pad per hour, Shortness of breath, Dizziness, Fainting spells, Swelling in the ankles, Chest pain, Increased palpitations (irregular heartbeat), Calf discomfort and Uncontrolled pain Follow Up Care Test Results: Test results from this visit will be discussed in further detail at your follow- up appointment, if applicable. Discharge Plan Admission Admit Date/Time: 01/02/22 22:10 Primary Reason for Your Visit: Mild dizziness, loss of balance/disequilibrium Attending Provider: Singh Colin Primary Care Provider: Lisa Deluna Consulting Providers: Radu Mcintosh ; Karyna Nava Discharge Orders/Prescriptions Prescriptions: New atorvastatin 20 mg tablet 20 mg PO QHS Qty: 30 0RF aspirin 81 mg Tablet,Chewable 81 mg PO BREAKFAST Qty: 90 1RF carvedilol 3.125 mg tablet 3.125 mg PO BID Qty: 60 2RF Rx Instructions: must administer with a meal/food. Hold for heart less than 60 or systolic blood pressure less than 100 mmHg. Titrate up the dose as per tolerated by heart rate and blood pressure Continued oxybutynin chloride 5 mg tablet 5 mg PO BID Qty: 60 clopidogrel 75 mg tablet 75 mg PO MOWEFR melatonin 5 mg PO/SL QHS amlodipine 5 mg tablet 5 mg PO DAILY Referrals / Follow Up: Avelino Zayas MD [Med Staff - Active Staff] - Within 1 Month (for NSTEMI?) Lisa Deluna DO [Primary Care Provider] - Disposition Disposition (needs filled in before D/C Order can be placed): Home, Self Care
--- NOTE | 2022-01-03 16:50 | DS.PCM_ITS ---
Providers Date of Admission: 01/02/22 Date of Discharge: 01/03/22 Primary Care Physician: Dr. Lisa Deluna, DO Consultations 01/03/22 00:07 Consult: Cardiology Routine Consulting Provider: Radu Mcintosh Reason for Consult: NSTEMI, CP, also in setting of ? posterior CVA of note. EMERGENT Consult: No MD Notified: Yes Date Notified: 01/02/22 Time Notified: 23:05 Method of Notification: Text Reason For Visit: INDERM TROP, CONCERN POST CVA Diagnosis Discharge Diagnosis (1) Balance problems: Status: Acute Code(s): R26.89 - Other abnormalities of gait and mobility (2) Non-ST elevated myocardial infarction: Status: Acute Code(s): I21.4 - Non-ST elevation (NSTEMI) myocardial infarction Medications at Discharge Home Medications oxybutynin chloride 5 mg tablet 5 mg PO BID #60 tabs 12/01/18 clopidogrel 75 mg tablet 75 mg PO MOWEFR 07/12/21 amlodipine 5 mg tablet 5 mg PO DAILY 07/29/21 melatonin 5 mg PO/SL QHS 01/02/22 aspirin 81 mg chewable tablet 81 mg PO BREAKFAST #90 tabs 01/03/22 atorvastatin 20 mg tablet 20 mg PO QHS #30 tabs 01/03/22 carvedilol 3.125 mg tablet 3.125 mg PO BID #60 tabs 01/03/22 Hospital Course Summary of Care Provided Hospital Course: This 86-year-old female with multiple comorbidities including coronary artery status post PCI was admitted with loss of balance, ataxia, high troponin, recent left ear infection treated with cefdinir by Dr. Deven Gillis and high troponin. 1. 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 NIH are consistently was 2. MRI brain was done reported no acute infarct. Chronic involutional changes. Patient had MRA of head reported no evidence of significant stenosis large vessel occlusion or other focal vascular abnormalities. TSH and free T4 normal. Fasting profile within normal limit, LDL 51, HDL 83. A1c 5.8%. Serum magnesium level normal. Discontinue NIH stroke scale. Acute stroke/ infarct ruled out. #2. NSTEMI with history of recent chest pain, mid inferior wall/anteroseptal wall and mid septum non-STEMI: As per H&P, patient had midsternal chest pain without radiation, sharp aching, 4-09/2009 in severity acid with mild dyspnea and diaphoresis dizziness lasting 15 to 20 minutes. Serial troponin high but showing downward trend. 89, 146, 256 and last 136. EKG in ED with nonspecific ST-T changes with no acute and severe ischemia. 2D echo done shows EF 45 to 50%, hypokinesis of mid inferior wall, anteroseptal wall and mid septum. Moderately severe 3+ AI. No aortic stenosis. Left atrium mildly enlarged. Nor mal right atrium. Bubble contrast read negative of right to left interatrial shunt patient on IV heparin drip, clopidogrel, baby aspirin. Machine Accountant consulted. Discussed with Dr. Mcintosh. Because of her advanced age, normal fasting profile, thyroid function test and h eart rate in upper 50s to 60s per minute, it was jointly decided by Dr. Mcintosh and myself conservative treatment with medication baby aspirin once daily, Plavix as per home dose 3 times a week, low-dose carvedilol 3.125 mg twice daily and low-dose statin. Patient can follow with Dr. Zayas and if she is still symptoms and patient wants, can have cardiac cath as an outpatient but will leave decision on patient and primary deportation officer. Patient is hemodynamically at baseline and normal therefore was discharged home. #3. CAD: Status post PCI: Patient follows Dr. Zayas last office visit in [facility] 2021. As per last cardiac cath in 2017 due to chest discomfort, she has 20% in-stent restenosis in the LAD, 30% in-stent restenosis in RCA, normal left main, diagonal 20%. On low-dose statin. #4. Hypertension: Acute stroke ruled out. BP acceptable limit #5. Hyperlipidemia: Discharged on low-dose statin given advanced age. #6. 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 #7. History of right renal artery stenosis: continue aspirin, Plavix, temporary permissive hypertension as noted, adding low-dose statin. #8. Former tobacco use with suspected underlying COPD: Chest x-ray with chronic COPD type changes, will have as needed albuterol, not any routine regimen, encourage head of bed and I-S, encourage continued tobacco cessation. #9. DVT prophylaxis: SCDs, heparin drip as noted given NSTEMI pending enzyme trending bhavna. #10. CODE status: Patient HCPOA is her niece Rosa Davis and living will is currently in place. Full code. Discharge medication reconciliation done. Discharge follow-up instructions completed. Discharge process discussed with the patient and all questions were answered to patient's satisfaction. Total time spent, exact 35 minutes on discharge meds reconciliation, examination, coordination of care with nurses and ancillary staff, review of imaging and blood test and discussion with the patient on follow-up instructions. Physical Exam Narrative Patient did not have chest pain on the PCU floor. As per H&P documentation, patient had sharp chest pain midsternal with no radiation as well as shortness of breath, dizziness in ED. Please see progress note of the same date for physical exam findings. Weight / BMI Weight Weight: 100 lb 1.438 oz Body Mass Index (BMI) 17.2 ABG / Lab / Microbiology Data Result Diagrams: 01/03/22 02:50 01/03/22 02:50 Laboratory: Laboratory Results - last 24 hr 01/02/22 20:45: WBC 7.1, RBC 4.47, Hgb 13.5, Hct 42.3, MCV 94.6, MCH 30.2, MCHC 31.9 L, RDW Std Deviation 47.8 H, RDW Coeff of Celestino 13.6, Plt Count 203, MPV 11.3, Immature Gran % (Auto) 1.700 H, Neut % (Auto) 70.7 H, Lymph % (Auto) 13.2 L, [place] % (Auto) 13.6 H, Eos % (Auto) 0.1, Baso % (Auto) 0.7, Absolute Neuts (auto) 5.0, Absolute Lymphs (auto) 0.93, Nucleated RBC % 0 01/02/22 20:45: PT 12.4, INR 1.0, APTT 28.5 01/02/22 20:45: Sodium 139, Potassium 4.4, Chloride 106, Carbon Dioxide 26.0, Anion Gap 7, BUN 25 H, Creatinine 0.92, Estim Creat Clear Calc 31.42, Est GFR (MDRD) Af Amer 75, Est GFR (MDRD) Non-Af 62, BUN/Creatinine Ratio 27.3 H, Glucose 116 H, Calcium 9.0, Troponin I High Sens 89 H 01/02/22 22:00: Troponin I High Sens 146 H* 01/02/22 22:00: Magnesium 1.8 01/03/22 02:50: WBC 6.5, RBC 4.15 L, Hgb 12.7, Hct 39.1, MCV 94.2, MCH 30.6, MCHC 32.5, RDW Std Deviation 46.9 H, RDW Coeff of Celestino 13.5, Plt Count 208, MPV 11.5, Immature Gran % (Auto) 1.900 H, Neut % (Auto) 60.4, Lymph % (Auto) 20.0, [place] % (Auto) 16.7 H, Eos % (Auto) 0.2, Baso % (Auto) 0.8, Absolute Neuts (auto) 3.9, Absolute Lymphs (auto) 1.29, Nucleated RBC % 0 01/03/22 02:50: Sodium 141, Potassium 4.1, Chloride 109 H, Carbon Dioxide 26.0, Anion Gap 6, BUN 21 H, Creatinine 0.86, Estim Creat Clear Calc 33.03, Est GFR (MDRD) Af Amer 80, Est GFR (MDRD) Non-Af 66, BUN/Creatinine Ratio 24.4 H, Glucose 110 H, Calcium 7.9 L, Total Bilirubin 0.60, AST 18, ALT 17, Alkaline Phosphatase 43 L, Total Protein 5.9 L, Albumin 2.8 L, Globulin 3.1, Al bumin/Globulin Ratio 0.9, Triglycerides 39, Cholesterol 142, LDL Cholesterol 51, VLDL Cholesterol 8, HDL Cholesterol 83, TSH 1.47, Free T4 1.01 01/03/22 02:50: Hemoglobin A1c 5.8 H 01/03/22 02:50: Troponin I High Sens 256 H* 01/03/22 07:14: APTT 88.7 H 01/03/22 07:14: Total Creatine Kinase 69 01/03/22 10:40: Troponin I High Sens 136 H* 01/03/22 14:25: APTT 43.8 H Radiography Diagnostic Testing: Radiology Impression Brain CT 01/02/22 21:04 IMPRESSION: Chronic involutional changes of the brain. N.B. : The above Results were Read Back by Boris Delgado MD to Mike Maldonado RN, RN, and understanding confirmed on 01/02/2022 21:24:35 (ET). Electronically Signed: Boris Delgado MD at 21:26 EDT Reading Location ID and State: [id number] / [employer] Tel , Service support , ADDENDUM: 01/02/22 2133 IMPRESSION: Chronic involutional changes of the brain. N.B. : The above Results were Read Back by Boris Delgado MD to Mike Maldonado RN, RN, and understanding confirmed on 01/02/2022 21:24:35 (ET). Electronically Signed: Boris Delgado MD at 21:26 EDT Reading Location ID and State: [id number] / [employer] Tel , Service support , Chest X-Ray 01/02/22 21:10 IMPRESSION: Emphysema without pneumonia or atelectasis. Electronically Signed: Boris Delgado MD at 21:27 EDT , Echocardiogram 01/03/22 00:07 Interpretation Summary The estimated ejection fraction is 45-50 %. The left atrium is mildly enlarged. Trivial mitral valve insufficiency. Moderately severe (3+) aortic valve insufficiency. Ordering Physician: Karyna Nava Referring Physician: Lisa Deluna M.D. Performed By: Dewayne Masters RCS D/C Instructions Discharge Diet: Low fat / Low cholesterol and 2000 mg Sodium Diet Weight Bearing Status: Weight bearing as tolerated Call your doctor if you observe: Fever of 101 or Higher, Coldness, Increased Pain, Numbness or Tingling, Change in Color, Inability to urinate, Inability to have a bowel movement, Using more than 1 pad per hour, Shortness of breath, Dizziness, Fainting spells, Swelling in the ankles, Chest pain, Increased palpitations (irregular heartbeat), Calf discomfort and Uncontrolled pain Meaningful Use Info Meaningful Use Diagnoses (Choose all that apply): AMI AMI/Post PCI/Angioplasty Aspirin given w/in 24hrs of arrival?: Yes ASA at discharge?: Yes Antiplatelet Therapy at Discharge:: Yes Statins at discharge?: Yes Dwain/ARB at discharge?: No Reason Dwain/ARB not ordered:: Not indicated (EF 45 to 50%. Advanced age. Avoid hypotension.) Beta Jem at discharge?: Yes Done w/ Acute NE measure.: Yes Documented LVEF (%): 50 Discharge Plan Admission Admit Date/Time: 01/02/22 22:10 Primary Reason for Your Visit: Mild dizziness, loss of balance/disequilibrium Attending Provider: Singh Colin Primary Care Provider: Lisa Deluna Consulting Providers: Radu Mcintosh ; Karyna Nava Discharge Orders/Prescriptions Prescriptions: New atorvastatin 20 mg tablet 20 mg PO QHS Qty: 30 0RF aspirin 81 mg Tablet,Chewable 81 mg PO BREAKFAST Qty: 90 1RF carvedilol 3.125 mg tablet 3.125 mg PO BID Qty: 60 2RF Rx Instructions: must administer with a meal/food. Hold for heart less than 60 or systolic blood pressure less than 100 mmHg. Titrate up the dose as per tolerated by heart rate and blood pressure Continued oxybutynin chloride 5 mg tablet 5 mg PO BID Qty: 60 clopidogrel 75 mg tablet 75 mg PO MOWEFR melatonin 5 mg PO/SL QHS amlodipine 5 mg tablet 5 mg PO DAILY Referrals / Follow Up: Avelino Zayas MD [Med Staff - Active Staff] - Within 1 Month (for NSTEMI?) Lisa Deluna DO [Primary Care Provider] - Disposition Disposition (needs filled in before D/C Order can be placed): Home, Self Care Charges/Coding Addendum Addendum: Patient was admitted as inpatient but was discharged because of sooner recovery than expected at time of admission. Visit Charges Inpatient E&M: 77018 Disch Hosp
--- NOTE | 2022-01-03 16:56 | PCM.CONS.C ---
Assessment & Plan Assessment/Plan (1) Abnormal echocardiogram: PLAN: Patient does have progression in her aortic regurgitation and new regional wall motion abnormalities. However despite her mild troponin elevation, clinically she does not appear to be having an acute coronary syndrome. Will be reasonable to treat her medically by adding carvedilol 3.125 mg p.o. twice daily and changing her aspirin to every day. Due to advanced age we will be cautious with adding FABIEN inhibitor right away and we will add that possibly as an outpatient if she is able to tolerate it. She did come in with dizziness that appears to be more of a vestibular origin. As an outpatient she will follow-up with Dr. Zayas and depending on her clinical status she may need coronary angiography or a follow-up echocardiogram in about 3 months to see if she has persistent wall motion abnormalities. (2) Elevated troponin: PLAN: Troponin went up to 256 and has started trending down. Patient denies any cardiac symptoms at this time. It will be reasonable to manage this medically with changes as mentioned above at this time. (3) History of coronary artery disease: (4) History of coronary artery stent placement: HPI Consult Data Date of Consult: 01/03/22 HPI Narrative Reason for Consultation: Abnormal echo [facility] Narrative: ALBER GUY, is a 86 F who presents right-sided neck pain. She has been dealing with bilateral ear issues for the last few days. She is on antibiotics for that as well. She has history of CAD status post PCI in the past. Prior to stent placement she had chest tightness which she has not had recently. She states that occasionally on and off she gets chest tightness but it is nothing like it was in the past. She does exercise at [employer] on a regular basis and does about 30 minutes on the elliptical machine and does not have chest tightness when she does that. She had a 2D echo today which reveals some regional wall motion abnormalities that appear to be new and an EF of 45 to 50%. She appears to have had normal EF in the past. Review of systems: All systems reviewed. All else is negative except that in [facility] Medical History Atherosclerotic heart disease of [place] coronary artery without angina pectoris Bradycardia Chronic neck and back pain Diarrhea Difficulty balancing when standing Essential (primary) hypertension History of pneumothorax Hyperlipidemia Hypocalcemia Hypokalemia Hypoparathyroidism Left-sided chest wall pain Limb weakness Other transient cerebral ischemic attacks and related syndromes Papular rash Parathyroid adenoma Peripheral vascular insufficiency Right renal artery stenosis Shoulder pain Thyroid disease TIA (transient ischemic attack) Home Medications oxybutynin chloride 5 mg tablet 5 mg PO BID #60 tabs 12/01/18 [History Last Taken Unknown] clopidogrel 75 mg tablet 75 mg PO MOWEFR 07/12/21 [History Last Taken Unknown] amlodipine 5 mg tablet 5 mg PO DAILY 07/29/21 [History Last Taken Unknown] melatonin 5 mg PO/SL QHS 01/02/22 [History Last Taken Unknown] aspirin 81 mg chewable tablet 81 mg PO BREAKFAST #90 tabs 01/03/22 [Rx Last Taken Unknown] atorvastatin 20 mg tablet 20 mg PO QHS #30 tabs 01/03/22 [Rx Last Taken Unknown] carvedilol 3.125 mg tablet 3.125 mg PO BID #60 tabs 01/03/22 [Rx Last Taken Unknown] Allergy/AdvReac Type Severity Reaction Status Date / Time meperidine HCl [From Demerol] Allergy Swelling, Verified 07/12/21 13:24 tremors Family History Brother Heart disease Mother Heart disease CHF (congestive heart failure) Father Heart disease Sister Heart disease Surgical History H/O parathyroidectomy (2016) History of cataract surgery History of coronary artery stent placement (02/16/12) History of left heart catheterization (09/14/16) History of shoulder surgery Social History household members: none Smoking Status: Former smoker alcohol intake: current details: occasionial Physical Exam Const alert and oriented x3 HEENT normocephalic Eyes no scleral icterus Resp clear to auscultation bilaterally Cardio regular rate, S1 normal heart sound and S2 normal heart sound Cardio Narrative: Diastolic murmur heard in the aortic area Extremity no pedal edema Psych mental status grossly normal Risk Stratification Risk Stratification Applicable: No Charges/Coding Visit Charges Inpatient E&M: 96546 Init Hosp L2 Objective Data Vital Signs: Vital Signs Temp Pulse Resp BP Pulse Ox O2 Del Method 98.0 F 64 18 140/46 H 97 Room Air 01/03/22 15:43 01/03/22 15:43 01/03/22 15:43 01/03/22 15:43 01/03/22 15:43 01/03/22 15:43 Oxygen Delivery Method Room Air Weight: 100 lb 1.438 oz Body Mass Index (BMI) 17.2 Intake & Output: Intake and Output for Last 24 Hours 01/01/22 01/02/22 01/03/22 23:59 23:59 23:59 Intake Total 1399. / 1399. Balance 1399. / 1399. Lab / Micro Data Result Diagrams: 01/03/22 02:50 01/03/22 02:50 Labs: Laboratory Results - last 24 hr 01/02/22 20:45: WBC 7.1, RBC 4.47, Hgb 13.5, Hct 42.3, MCV 94.6, MCH 30.2, MCHC 31.9 L, RDW Std Deviation 47.8 H, RDW Coeff of [place] 13.6, Plt Count 203, MPV 11.3, Immature Gran % (Auto) 1.700 H, Neut % (Auto) 70.7 H, Lymph % (Auto) 13.2 L, [place] % (Auto) 13.6 H, Eos % (Auto) 0.1, Baso % (Auto) 0.7, Absolute Neuts (auto) 5.0, Absolute Lymphs (auto) 0.93, Nucleated RBC % 0 01/02/22 20:45: PT 12.4, INR 1.0, APTT 28.5 01/02/22 20:45: Sodium 139, Potassium 4.4, Chloride 106, Carbon Dioxide 26.0, Anion Gap 7, BUN 25 H, Creatinine 0.92, Estim Creat Clear Calc 31.42, Est GFR (MDRD) Af Amer 75, Est GFR (MDRD) Non-Af 62, BUN/Creatinine Ratio 27.3 H, Glucose 116 H, Calcium 9.0, Troponin I High Sens 89 H 01/02/22 22:00: Troponin I High Sens 146 H* 01/02/22 22:00: Magnesium 1.8 01/03/22 02:50: WBC 6.5, RBC 4.15 L, Hgb 12.7, Hct 39.1, MCV 94.2, MCH 30.6, MCHC 32.5, RDW Std Deviation 46.9 H, RDW Coeff of [place] 13.5, Plt Count 208, MPV 11.5, Immature Gran % (Auto) 1.900 H, Neut % (Auto) 60.4, Lymph % (Auto) 20.0, [place] % (Auto) 16.7 H, Eos % (Auto) 0.2, Baso % (Auto) 0.8, Absolute Neuts (auto) 3.9, Absolute Lymphs (auto) 1.29, Nucleated RBC % 0 01/03/22 02:50: Sodium 141, Potassium 4.1, Chloride 109 H, Carbon Dioxide 26.0, Anion Gap 6, BUN 21 H, Creatinine 0.86, Estim Creat Clear Calc 33.03, Est GFR (MDRD) Af Amer 80, Est GFR (MDRD) Non-Af 66, BUN/Creatinine Ratio 24.4 H, Glucose 110 H, Calcium 7.9 L, Total Bilirubin 0.60, AST 18, ALT 17, Alkaline Phosphatase 43 L, Total Protein 5.9 L, Albumin 2.8 L, Globulin 3.1, Albumin/Globulin Ratio 0.9, Triglycerides 39, Cholesterol 142, LDL Cholesterol 51, VLDL Cholesterol 8, HDL Cholesterol 83, TSH 1.47, Free T4 1.01 01/03/22 02:50: Hemoglobin A1c 5.8 H 01/03/22 02:50: Troponin I High Sens 256 H* 01/03/22 07:14: APTT 88.7 H 01/03/22 07:14: Total Creatine Kinase 69 01/03/22 10:40: Troponin I High Sens 136 H* 01/03/22 14:25: APTT 43.8 H Cardiology Labs/Tests 01/02/22 20:45: WBC 7.1, RBC 4.47, Hgb 13.5, Hct 42.3, MCV 94.6, MCH 30.2, MCHC 31.9 L, Plt Count 203, MPV 11.3, Immature Gran % (Auto) 1.700 H, Neut % (Auto) 70.7 H, Lymph % (Auto) 13.2 L, [place] % (Auto) 13.6 H, Eos % (Auto) 0.1, Baso % (Auto) 0.7, Absolute Neuts (auto) 5.0, Nucleated RBC % 0 01/02/22 20:45: PT 12.4, INR 1.0, APTT 28.5 01/02/22 20:45: Sodium 139, Potassium 4.4, Chloride 106, Carbon Dioxide 26.0, Anion Gap 7, BUN 25 H, Creatinine 0.92, Est GFR (MDRD) Af Amer 75, Est GFR (MDRD) Non-Af 62, BUN/Creatinine Ratio 27.3 H, Glucose 116 H, Calcium 9.0 01/02/22 22:00: Magnesium 1.8 01/03/22 02:50: WBC 6.5, RBC 4.15 L, Hgb 12.7, Hct 39.1, MCV 94.2, MCH 30.6, MCHC 32.5, Plt Count 208, MPV 11.5, Immature Gran % (Auto) 1.900 H, Neut % (Auto) 60.4, Lymph % (Auto) 20.0, [place] % (Auto) 16.7 H, Eos % (Auto) 0.2, Baso % (Auto) 0.8, Absolute Neuts (auto) 3.9, Nucleated RBC % 0 01/03/22 02:50: Sodium 141, Potassium 4.1, Chloride 109 H, Carbon Dioxide 26.0, Anion Gap 6, BUN 21 H, Creatinine 0.86, Est GFR (MDRD) Af Amer 80, Est GFR (MDRD) Non-Af 66, BUN/Creatinine Ratio 24.4 H, Glucose 110 H, Calcium 7.9 L, Total Bilirubin 0.60, Triglycerides 39, Cholesterol 142, LDL Cholesterol 51, VLDL Cholesterol 8, HDL Cholesterol 83 01/03/22 02:50: Hemoglobin A1c 5.8 H 01/03/22 07:14: APTT 88.7 H 01/03/22 14:25: APTT 43.8 H Rhythm: EKG: ECHO: Stress Test: Cardiac Cath: PCI: CT Surgery: Holter monitor: EPS: PPM: CXR: Chest CT Scan: Radiography Diagnostic Testing: Radiology Impression Brain CT 01/02/22 21:04 IMPRESSION: Chronic involutional changes of the brain. N.B. : The above Results were Read Back by Boris Delgado MD to Mike Maldonado RN, RN, and understanding confirmed on 01/02/2022 21:24:35 (ET). Electronically Signed: Boris Delgado MD at 21:26 EDT Reading Location ID and State: [id number] / [place] Tel , Service support , ADDENDUM: 01/02/222132 IMPRESSION: Chronic involutional changes of the brain. N.B. : The above Results were Read Back by Boris Delgado MD to Mike Maldonado RN, RN, and understanding confirmed on 01/02/2022 21:24:35 (ET). Electronically Signed: Boris Delgado MD at 21:26 EDT Reading Location ID and State: [id number] / [place] Tel , Service support , Chest X-Ray 01/02/22 21:10 IMPRESSION: Emphysema without pneumonia or atelectasis. Electronically Signed: Boris Delgado MD at 21:27 EDT Reading Location ID and State: [id number] / [place] Tel , Service support , Echocardiogram 01/03/22 00:07 Interpretation Summary The estimated ejection fraction is 45-50 %. The left atrium is mildly enlarged. Trivial mitral valve insufficiency. Moderately severe (3+) aortic valve insufficiency. Ordering Physician: Karyna Nava Referring Physician: Lisa Deluna M.D. Performed By: Dewayne Masters RCS
--- NOTE | 2022-01-03 18:33 | NURSING ---
1127 Dr. Colin made aware of elevated troponin level. No new orders at this time.
== END 2022-01-03 17:41 | disposition home or self-care (01) | DRG 281 ==
LOC: ED 22:29 → PCU 23:06
PROVIDERS: Admitting Provider Family Medicine; Emergency Provider Emergency Medicine; PCP Internal Medicine; Visit Provider Internal Medicine
DX: I21.4 Non-ST elevation (NSTEMI) myocardial infarction (principal); T82.855A Stenosis of coronary artery stent, initial encounter; E20.9 Hypoparathyroidism, unspecified; E78.5 Hyperlipidemia, unspecified; I25.10 Atherosclerotic heart disease of native coronary artery without angina pectoris; I10 Essential (primary) hypertension; H53.9 Unspecified visual disturbance; I25.2 Old myocardial infarction; I35.1 Nonrheumatic aortic (valve) insufficiency; H91.91 Unspecified hearing loss, right ear; Z87.891 Personal history of nicotine dependence; R26.89 Other abnormalities of gait and mobility; Z95.5 Presence of coronary angioplasty implant and graft; Z86.73 Personal history of transient ischemic attack (TIA), and cerebral infarction without residual deficits
CPT/HCPCS: 36415; 70450; 70544; 70551; 71045; 80048; 80053; 80061; 82550; 83036; 83735; 84439; 84443; 84484; 85025; 85610; 85730; 92610; 93005; 93306; 94762; 97162; 97165; 99284; J7030; A4216

== ENCOUNTER → 2022-02-17 | Outpatient (CLI) | payer MEDICARE, OTHER, SELFPAY ==
--- NOTE | 2022-02-17 15:13 | BI_ITS ---
MAMMOGRAPHY - BILATERAL SCREENING REASON FOR EXAM: Female, 86 years old. Routine annual screening examination. PERTINENT HISTORY: Grandmother with breast cancer. TECHNIQUE: Digital bilateral breast nai (3D mammographic acquisition) in the CC and MLO projections. 2-D mediolateral oblique (MLO) and craniocaudad (CC) views of both breasts were obtained. CAD: Full Field Digital Mammography with Computer Added Detection was performed. COMPARISON: Comparison is made with prior study of 01/16/2021 and 03/16/2019. FINDINGS: Breast Composition: The breasts are extremely dense, which lowers the sensitivity of mammography. There are no dominant masses or suspicious calcifications. Stable scattered bilateral calcifications. No other significant abnormalities are identified. There has been no significant change since the prior study. BI/SCRN MAMM (CAD)W/NAI BILAT IMPRESSION: Stable bilateral screening mammogram. Yearly follow-up mammogram recommended. (A) ASSESSMENT CATEGORY: BIRADS Category 2: Benign. A letter regarding these results will be sent to the patient by the facility within 30 days. Approximately 10% of breast cancers are not detected by mammography. A normal mammogram should not delay biopsy of a clinically suspicious abnormality. [id number] Electronically Signed: Justus Dang MD at 8:38 EDT ,
== END | disposition home or self-care (01) ==
LOC: OPBI 15:11
PROVIDERS: PCP Internal Medicine; Visit Provider Nurse Practitioner Family
DX: Z12.31 Encounter for screening mammogram for malignant neoplasm of breast (principal); Z80.3 Family history of malignant neoplasm of breast
CPT/HCPCS: 77063; 77067

== ENCOUNTER 2022-05-01 05:20 | Inpatient (IN) | payer MEDICARE, OTHER, SELFPAY ==
[2022-05-01] VITALS (41 sets, daily range): BP systolic 128–196; BP diastolic 66–121; PULSE 99–144; RESP 12–89; TEMP 35.8–36.4; O2SAT 65–97; BMI 19.5
--- NOTE | 2022-05-01 05:28 | EDS_ITS ---
HPI History of Present Illness Chief Complaint: Abd Pain Narrative Narrative: Patient presents with abdominal pain nausea vomiting and loose stools for the past 12 hours. She arrives via EMS. No reported fevers or chills or urinary symptoms. The pain is generalized and crampy. She is found to be hypoxic here although paramedics said that her pulse ox was 93%. She was placed on a nasal cannula initially followed by a nonrebreather mask and her pulse ox improved. [facility] Medical History Atherosclerotic heart disease of [place] coronary artery without angina pectoris Bradycardia Cardiomyopathy Chronic neck and back pain Diarrhea Difficulty balancing when standing Essential (primary) hypertension History of coronary artery disease History of non-ST elevation myocardial infarction (NSTEMI) (01/02/22) History of pneumothorax Hyperlipidemia Hypocalcemia Hypokalemia Hypoparathyroidism Ischemic cardiomyopathy Left-sided chest wall pain Limb weakness Nonrheumatic aortic (valve) insufficiency Other transient cerebral ischemic attacks and related syndromes Papular rash Parathyroid adenoma Peripheral vascular insufficiency Right renal artery stenosis Shoulder pain Thyroid disease TIA (transient ischemic attack) Home Medications oxybutynin chloride 5 mg tablet 5 mg PO BID #60 tabs 12/01/18 [History Last Taken Unknown] clopidogrel 75 mg tablet 75 mg PO MOWEFR 07/12/21 [History Last Taken Unknown] melatonin 5 mg PO/SL QHS 01/02/22 [History Last Taken Unknown] aspirin 81 mg chewable tablet 81 mg PO BREAKFAST #90 tabs 01/03/22 [Rx Last Taken Unknown] atorvastatin 20 mg tablet 20 mg PO QHS #30 tabs 01/03/22 [Rx Last Taken Unknown] carvedilol 3.125 mg tablet 3.125 mg PO BID 01/20/22 [History Last Taken Unknown] lisinopril 10 mg tablet 10 mg PO DAILY #90 tabs 01/20/22 [Rx Last Taken Unknown] Allergy/AdvReac Type Severity Reaction Status Date / Time meperidine HCl [From Demerol] Allergy Swelling, Verified 05/01/22 05:42 tremors Family History Brother Heart disease Mother Heart disease CHF (congestive heart failure) Father Heart disease Sister Heart disease Surgical History H/O parathyroidectomy (2017) History of cataract surgery History of coronary artery stent placement (02/16/12) History of left heart catheterization (09/14/16) History of shoulder surgery Social History household members: none Smoking Status: Former smoker alcohol intake: current details: occasionial ROS ROS ED ROS Narrative Past medical history: Reviewed, hypertension, hypercholesterolemia, CAD Medications: Reviewed includes aspirin and Plavix Social history: Noncontributory Review of systems: All systems negative except as indicated General: No fever Eyes: No visual changes ENT: No upper airway congestion, normal voice Neck: No neck pain Cardiovascular: No chest pain Respiratory: Some shortness of breath,. Gastrointestinal: Abdominal pain with nausea vomiting and loose watery stools as in HPI Genitourinary: No dysuria Musculoskeletal: Denies myalgias no difficulty with ambulation Skin: No rash Neurological: No memory loss, confusion or any focal weakness Psych: No recent behavioral changes Hematologic: No easy bleeding or easy bruising EXAM Physical Exam Narrative Exam Narrative: Physical exam General: Patient appears uncomfortable, she is chronically ill Head: Normocephalic, Atraumatic Eyes: Conjunctiva not pale ENT: Dry mucous membranes Neck: Supple, Nontender, No lymphadenopathy Cardiovascular: Regular tachycardia Respiratory: Coarse breath sounds bilaterally, she is hypoxic but she improved with nasal cannula. Abdomen: It is soft. She has tenderness throughout the abdomen. No guarding or rebound. Back: Nontender, Normal Inspection. Negative for: CVA tenderness Extremities: Nontender, No edema Skin: Normal color, No rash Neurological: Alert, Normal Strength, Normal Sensation Psychological: Normal affect Const Vital Signs: 05/01/22 05:22 05/01/22 05:40 05/01/22 06:06 Temperature 97.1 F L Temperature Source Temporal Pulse Rate 99 129 H Respiratory Rate 15 21 H Respiratory Effort Respiratory Pattern Blood Pressure 195/84 H 196/121 H Blood Pressure Mean 121 146 Pulse Ox 65 97 86 Oxygen Delivery Method Room Air Non-Rebreather Non-Rebreather Oxygen Flow Rate (L/min) 15 15 Fraction of Inspired Oxygen (FIO2) 05/01/22 06:12 05/01/22 06:17 05/01/22 06:26 Temperature Temperature Source Pulse Rate 131 H 133 H Respiratory Rate 26 H 24 H Respiratory Effort Labored Respiratory Pattern Tachypnea Blood Pressure 195/83 H 185/96 H Blood Pressure Mean 120 125 Pulse Ox 84 65 Oxygen Delivery Method Non-Rebreather Non-Rebreather Oxygen Flow Rate (L/min) 15 Fraction of Inspired Oxygen (FIO2) 05/01/22 06:25 Temperature Temperature Source Pulse Rate 127 H Respiratory Rate 26 H Respiratory Effort Respiratory Pattern Tachypnea Blood Pressure Blood Pressure Mean Pulse Ox 89 Oxygen Delivery Method Oxygen Flow Rate (L/min) Fraction of Inspired Oxygen (FIO2) 100 MDM MDM MDM Narrative Medical decision making narrative: Because the patient had abdominal pain nausea and vomiting as well as diarrhea I did a CT of the abdomen and pelvis, however because of her hypoxia and some dyspnea I also did a CT of the chest, this showed pulmonary edema the CT abdomen pelvis was unremarkable. Patient was given nitroglycerin infusion and Lasix since now she is on a BiPAP and she worsened. She is tolerating the BiPAP and she is slowly improving. EKG showed deep ST depression in V4 V5 and V6 but no STEMI pattern. I discussed with cardiology who is okay with nitroglycerin Lasix and advised Lovenox due to the ischemic changes on the EKG. Patient tells me she has had breathing difficulties for the past 2 weeks, she is worsening in the emergency department and needs to be placed on nonrebreather mask and then a BiPAP machine. I discussed with the patient, I discussed with Rosa yost POA, at this time the patient does not have a DNR, the patient tells me that she would be okay with intubation if its a last resort, I told her that is the only time I do intubated in the emergency department. She is okay with this. Lab Data Labs: Laboratory Results - last 24 hr 05/01/22 05/01/22 05/01/22 05:41 05:41 05:41 WBC 14.1 H RBC 4.95 Hgb 15.0 Hct 48.0 H MCV 97.0 MCH 30.3 MCHC 31.3 L RDW Std Deviation 48.8 H RDW Coeff of [place] 13.6 Plt Count 214 MPV 12.1 H Immature Gran % (Auto) 1.100 H Neut % (Auto) 84.6 H Lymph % (Auto) 9.8 L [place] % (Auto) 4.0 Eos % (Auto) 0.1 Baso % (Auto) 0.4 Absolute Neuts (auto) 11.9 H Absolute Lymphs (auto) 1.38 Nucleated RBC % 0 Sodium 139 Potassium 3.7 Chloride 104 Carbon Dioxide 28.0 Anion Gap 7 BUN 28 H Creatinine 1.09 H Estim Creat Clear Calc 27.78 Est GFR (MDRD) Af Amer 61 Est GFR (MDRD) Non-Af 50 L BUN/Creatinine Ratio 25.7 H Glucose 199 H Lactic Acid 2.5 H* Calcium 9.0 Total Bilirubin 0.50 AST 45 H ALT 39 Alkaline Phosphatase 59 Total Protein 7.3 Albumin 3.6 Globulin 3.7 Albumin/Globulin Ratio 1.0 Lipase 97 Radiography Diagnostic Testing: Clinical Impression(s) from Imaging Studies Chest/Abdomen/Pelvis CT 05/01/22 05:28 IMPRESSION: Moderate cardiomegaly Pulmonary edema. Small bilateral pleural effusions. There is a nodule in the right lower lobe measures 7 mm has nonspecific appearance. Follow-up in 6 would be helpful for better characterization. Ascending aorta aneurysm measures 4 cm . Cholelithiasis Electronically Signed: Lilly Melgoza MD at 6:28 EST , EKG Initial EKG: Comments: Sinus rhythm with a rate of 129. Normal MT interval. QTC is 460. ST depression in V4 V5 and V6. Nonspecific ST changes throughout. No ST elevation LA is seen. Interpreted by emergency Dr. Critical Care Time Critical Care Time: Yes Critical care time (excluding procedures): 30-74 minutes, Discussing w/Patient &/or Family/Human Resources Assistant Manager, Discussing w/Consultants, Arranging Admission or Transfer, Performing Direct Patient Care at Bedside and - (30 min) Discharge Plan Dx/Rx/DC Orders Clinical Impression: Respiratory failure, Hypoxia, Abdominal pain, Nausea & vomiting, CHF (congestive heart failure) Disposition Disposition: Acute Care [facility]
--- NOTE | 2022-05-01 05:28 | CT_ITS ---
STUDY: CT CHEST, ABDOMEN T PELVIS WITHOUT CONTRAST REASON FOR EXAM: Female, 86 years old. abdominal pain,pneumonia RADIATION DOSAGE (If Supplied By Facility): CTDIvol = ( 5.46 ) mGy, DLP = ( 675.95 ) mGycm TECHNIQUE: Transaxial imaging was performed without the administration of intravenous contrast material. Individualized dose optimization techniques were used for this CT. COMPARISON: 12/15/2016 FINDINGS: CHEST There is diffuse interstitial thickening in both lungs consistent with pulmonary edema. There is a nodule in the right lower lobe measures 7 mm has nonspecific appearance. Small bilateral pleural effusions. There is moderate cardiac enlargement. Normal mediastinum. Normal hilar regions. Normal unenhanced pulmonary arteries. Ascending aorta aneurysm measures 4 cm . Normal osseous structures. There is no demonstrated abnormality of the visualized upper abdomen. ABDOMEN The visualized lung bases are unremarkable. The visualized portions of the heart are within normal limits. Normal liver. There is a solitary gallstone. Normal spleen. Normal pancreas. Normal bilateral adrenal glands. Normal right kidney. Normal left kidney. Normal visualized stomach. Normal small intestine. Normal colon. The appendix is visualized and appears normal. Normal abdominal aorta. Normal inferior vena cava. Normal retroperitoneum. Normal abdominal wall. Normal osseous structures. PELVIS Normal urinary bladder. Normal visualized small intestine. Normal visualized colon. There is no pelvic fluid. There is no pelvic lymphadenopathy or mass lesion. Normal visualized pelvic arteries. Normal abdominal wall. There are diffuse degenerative changes of the visualized lumbar spine. There is healed sacral fracture. CT/CT Chest, Abd, Pelvis WO Cont IMPRESSION: Moderate cardiomegaly Pulmonary edema. Small bilateral pleural effusions. There is a nodule in the right lower lobe measures 7 mm has nonspecific appearance. Follow-up in 6 would be helpful for better characterization. Ascending aorta aneurysm measures 4 cm . Cholelithiasis Electronically Signed: Lilly Melgoza MD at 6:28 EST Reading Location ID and State: [id number] / [place] Tel , Service support ,
[2022-05-01] MEDS: 0.9% Normal Saline 1,000 ML 1000 ML IV (05:42)
[2022-05-01] MEDS: Ondansetron 4 MG/2 ML Vial IV (05:43)
[2022-05-01 05:48] LABS: Absolute Lymphocyte Count 1.38 X10^3/uL (0.83-4.51); Absolute Neutrophil Count 11.9 X10^3/uL (2.0-7.7); Basophil# 0.06 X10^3/uL; Basophil% 0.4 % (0-1); Eosinophil# 0.01 X10^3/uL; Eosinophils% 0.1 % (0-5); Lymphocyte # 1.38 X10^3/ul (0.83-4.51); Lymphocyte % 9.8 % (19-41); Mean Corp Hgb Conc 31.3 g/dL (32-36); Mean Corpuscular Hgb 30.3 pg (27.0-32.0); Mean Platelet Vol. 12.1 fl (6.2-12.0); Monocyte# 0.57 X10^3/uL; NRBC Flagged by Analyzer 0 % (0-5); Neutrophil # 11.91 X10^3/uL (2.7-7.7); Neutrophil % 84.6 % (47-70); Platelet Count 214 K/mm3 (150-450); RBC Distribution Width CV 13.6 % (11.6-14.6); RBC Distribution Width SD 48.8 fl (35.1-43.9); Red Blood Count 4.95 M/mm3 (4.2-5.4); White Blood Count 14.1 K/mm3 (4.4-11.0)
[2022-05-01 06:08] LABS: AST(SGOT) 45 U/L (15-37); Alanine Aminotransfer ALT/SGPT 39 U/L (13-56); Albumin, Serum 3.6 g/dL (3.2-5.0); Alkaline Phosphatase 59 U/L (45-117); Anion Gap 7 (5-15); BUN 28 mg/dL (7-18); BUN/Creat Ratio 25.7 RATIO (10-20); Chloride 104 mmol/L (98-107); Creatinine, Serum 1.09 mg/dL (0.55-1.02); EST Glomerular Filtration Rate 50 mL/min (>60); Est Glom Filt Rate - Afr Amer 61 mL/min (>60); Estimated Creatinine Clearance 27.78 ml/min; Globulin 3.7 g/dL (2.2-4.2); Glucose 199 mg/dL (74-106); Lipase 97 U/L (73-393); Potassium 3.7 mmol/L (3.5-5.1); Protein, Total 7.3 g/dL (6.4-8.2); Sodium Level 139 mmol/L (136-145)
[2022-05-01 06:12] LABS: Lactic Acid 2.5 mmol/L (0.4-1.9)
[2022-05-01 06:44] LABS: Mucous, Urine 0 SEEN /hpf (<or=2+); Squamous Epithelial Cells - UA 0 SEEN /hpf (5-10)
[2022-05-01 06:45] LABS: Color, Urine Yellow (Yellow); Glucose, Dipstick 100 mg/dl (Normal); Ketone-Dipstick 5 mg/dl (Negative); Leukocyte Esterase-Dipstick 100 /ul (Negative); Nitrite-Dipstick Positive (Negative); Occult Blood-Urine 25 /ul (Negative); Protein-Dipstick 30 mg/dl (Negative); Urine Bilirubin Dipstick Negative (Negative); Urine Clarity Clear (Clear); Urine Urobilinogen Normal (Normal)
[2022-05-01] MEDS: Furosemide 100 MG/10 ML Vial 80 MG IV (06:45)
[2022-05-01 06:52] LABS: Bacteria 3+ /hpf (None Seen); Red Blood Cells-Urine 0-5 SEEN /hpf (0-5); White Blood Cells 5-10 SEEN /hpf (0-5)
[2022-05-01] MEDS: Nitroglycerin Infusion 250 ML 6 MG CONT INF (06:53)
[2022-05-01 06:57] LABS: Troponin-I HS 181 pg/mL (3.0-54.0)
[2022-05-01] MEDS: Enoxaparin 120 MG/0.8 ML Syringe SC (07:10)
[2022-05-01 07:15] LABS: BNP,B-Type NATRIURETIC PEPTIDE 615.5 pg/mL (0-100)
[2022-05-01] MEDS: Ceftriaxone 1 GM/50 ML BAG IV (07:29)
--- NOTE | 2022-05-01 07:39 | ED.RN ---
DR. EDWARDS INFORMED OF SEPSIS ALERT, REPORTS HE IS NOT CONCERNED ABOUT SEPSIS BECAUSE SHE IS ADMITTED FOR CHF.
[2022-05-01 08:44] LABS: International Normalized Ratio 1.2; Prothrombin Time (Protime)PT. 14.7 SECONDS (11.7-14.9)
[2022-05-01 08:45] LABS: Partial Thromboplast Time 39.1 Seconds (24.1-36.2)
[2022-05-01 08:59] LABS: Troponin-I HS 298 pg/mL (3.0-54.0)
[2022-05-01 09:46] LABS: Reflex Lactate? Y
[2022-05-01] MEDS: HEPARIN/D5w 25,000 UNITS 25,000 UNITS/250 ML IV.SOLN. 5.5 UNITS CONT INF (10:04)
[2022-05-01] MEDS: Heparin Injection (Vial) 5,000 UNIT/ML VIAL 3000 UNIT IV (10:04)
[2022-05-01 10:52] LABS: Lactic Acid 4.4 mmol/L (0.4-1.9)
[2022-05-01 12:14] LABS: Troponin-I HS 811 pg/mL (3.0-54.0)
[2022-05-01] MEDS: LORazepam 2 MG/ML Syringe 0.5 MG IV (14:02)
--- NOTE | 2022-05-01 14:06 | ED.RN ---
notified resp therapy of O2 sats on airvo.
--- NOTE | 2022-05-01 14:43 | PCM.HP.STD ---
HPI - General General Date of Admission: 05/01/22 HPI Narrative Ray GUY, is a 86 F who presents to the hospital with abdominal pain for the last 12 hours. She called EMS and at the time they found that her pulse ox was 93% never on arrival to our ER she was 65% on room air initially she was placed on nasal cannula and then had to be titrated all the way up to BiPAP. She states that she feels like she was breathing okay but that she was having significant abdominal pain. CT of her chest abdomen and pelvis was essentially unremarkable except for pulmonary edema. She also had a UA consistent with a UTI which could explain her abdominal pain as well as her loose stools. [facility] Medical History Atherosclerotic heart disease of [place] coronary artery without angina pectoris Bradycardia Cardiomyopathy Chronic neck and back pain Diarrhea Difficulty balancing when standing Essential (primary) hypertension History of coronary artery disease History of non-ST elevation myocardial infarction (NSTEMI) (01/02/22) History of pneumothorax Hyperlipidemia Hypocalcemia Hypokalemia Hypoparathyroidism Ischemic cardiomyopathy Left-sided chest wall pain Limb weakness Nonrheumatic aortic (valve) insufficiency Other transient cerebral ischemic attacks and related syndromes Papular rash Parathyroid adenoma Peripheral vascular insufficiency Right renal artery stenosis Shoulder pain Thyroid disease TIA (transient ischemic attack) Home Medications oxybutynin chloride 5 mg tablet 5 mg PO BID #60 tabs 12/01/18 [History Last Taken Unknown] clopidogrel 75 mg tablet 75 mg PO MOWEFR 07/12/21 [History Last Taken Unknown] melatonin 5 mg PO/SL QHS 01/02/22 [History Last Taken Unknown] aspirin 81 mg chewable tablet 81 mg PO BREAKFAST #90 tabs 01/03/22 [Rx Last Taken Unknown] atorvastatin 20 mg tablet 20 mg PO QHS #30 tabs 01/03/22 [Rx Last Taken Unknown] carvedilol 3.125 mg tablet 3.125 mg PO BID 01/20/22 [History Last Taken Unknown] lisinopril 10 mg tablet 10 mg PO DAILY #90 tabs 01/20/22 [Rx Last Taken Unknown] Allergy/AdvReac Type Severity Reaction Status Date / Time meperidine HCl [From Demerol] Allergy Swelling, Verified 05/01/22 05:42 tremors Family History Brother Heart disease Mother Heart disease CHF (congestive heart failure) Father Heart disease Sister Heart disease Surgical History H/O parathyroidectomy (2017) History of cataract surgery History of coronary artery stent placement (02/16/12) History of left heart catheterization (09/14/16) History of shoulder surgery Social History household members: none Smoking Status: Former smoker alcohol intake: current details: occasionial ROS Constitutional Constitutional: Denies chills, fatigue, fever(s) or malaise Eyes Eyes: Denies blurry vision ENT HEENT: Denies headache(s) or nasal discharge Cardiovascular Cardiovascular: Denies chest pain, dyspnea on exertion or syncope Respiratory/Chest Respiratory/Chest: Reports shortness of breath at rest; Denies cough or shortness of breath with exertion Gastrointestinal Gastrointestinal: Reports abdominal pain, diarrhea, nausea and vomiting; Denies constipation Genitourinary Genitourinary: Denies dysuria Neurologic Neurologic: Denies focal weakness, numbness or tremor(s) Psychiatric Psychiatric: Denies anxiety or depression Vital Signs Vital Signs Vital Signs: 05/01/22 05:22 05/01/22 05:40 05/01/22 06:06 Temperature 97.1 F L Temperature Source Temporal Pulse Rate 99 129 H Respiratory Rate 15 21 H Respiratory Effort Respiratory Depth Respiratory Pattern Blood Pressure 195/84 H 196/121 H Blood Pressure [BP] Blood Pressure Mean 121 146 Blood Pressure Mean [BP] Blood Pressure Source Blood Pressure Source [BP] Blood Pressure Position Blood Pressure Position [BP] Blood Pressure Location Blood Pressure Location [BP] Pulse Ox 65 97 86 Oxygen Delivery Method Room Air Non-Rebreather Non-Rebreather Oxygen Flow Rate (L/min) 15 15 Fraction of Inspired Oxygen (FIO2) 05/01/22 06:12 05/01/22 06:17 05/01/22 06:26 Temperature Temperature Source Pulse Rate 131 H 133 H Respiratory Rate 26 H 24 H Respiratory Effort Labored Respiratory Depth Respiratory Pattern Tachypnea Blood Pressure 195/83 H 185/96 H Blood Pressure [BP] Blood Pressure Mean 120 125 Blood Pressure Mean [BP] Blood Pressure Source Blood Pressure Source [BP] Blood Pressure Position Blood Pressure Position [BP] Blood Pressure Location Blood Pressure Location [BP] Pulse Ox 84 65 Oxygen Delivery Method Non-Rebreather Non-Rebreather Oxygen Flow Rate (L/min) 15 Fraction of Inspired Oxygen (FIO2) 05/01/22 06:53 05/01/22 07:09 05/01/22 06:25 Temperature Temperature Source Pulse Rate 130 H 128 H 127 H Respiratory Rate 89 H 26 H Respiratory Effort Respiratory Depth Respiratory Pattern Tachypnea Blood Pressure 183/109 H 178/102 H Blood Pressure [BP] Blood Pressure Mean 133 127 Blood Pressure Mean [BP] Blood Pressure Source Monitor Blood Pressure Source [BP] Blood Pressure Position Semi-Fowlers Blood Pressure Position [BP] Blood Pressure Location Right Arm Blood Pressure Location [BP] Pulse Ox 89 Oxygen Delivery Method Bi-pap Oxygen Flow Rate (L/min) Fraction of Inspired Oxygen (FIO2) 100 100 05/01/22 07:30 05/01/22 07:43 05/01/22 07:18 Temperature 97.6 F L 97.6 F L Temperature Source Temporal Temporal Pulse Rate 126 H 122 H 133 H Respiratory Rate 30 H 30 H 29 H Respiratory Effort Respiratory Depth Respiratory Pattern Tachypnea Blood Pressure 165/85 H 165/85 H Blood Pressure [BP] Blood Pressure Mean 111 111 Blood Pressure Mean [BP] Blood Pressure Source Blood Pressure Source [BP] Blood Pressure Position Blood Pressure Position [BP] Blood Pressure Location Blood Pressure Location [BP] Pulse Ox 89 91 88 Oxygen Delivery Method Bi-pap Bi-pap Oxygen Flow Rate (L/min) Fraction of Inspired Oxygen (FIO2) 100 100 100 05/01/22 08:21 05/01/22 08:39 05/01/22 09:00 Temperature 97.6 F L Temperature Source Temporal Pulse Rate 109 H 112 H 103 H Respiratory Rate 30 H 30 H 26 H Respiratory Effort Respiratory Depth Respiratory Pattern Blood Pressure 178/85 H 180/90 H Blood Pressure [BP] Blood Pressure Mean 116 120 Blood Pressure Mean [BP] Blood Pressure Source Blood Pressure Source [BP] Blood Pressure Position Blood Pressure Position [BP] Blood Pressure Location Blood Pressure Location [BP] Pulse Ox 92 95 91 Oxygen Delivery Method Bi-pap Bi-pap Oxygen Flow Rate (L/min) Fraction of Inspired Oxygen (FIO2) 100 70 05/01/22 09:29 05/01/22 09:47 05/01/22 09:48 Temperature 96.9 F L 96.9 F L Temperature Source Axillary Axillary Pulse Rate 102 H 102 H Respiratory Rate 25 H 25 H Respiratory Effort Short of Breath Respiratory Depth Normal Respiratory Pattern Tachypnea Blood Pressure 172/85 H Blood Pressure [BP] 172/85 H Blood Pressure Mean 114 Blood Pressure Mean [BP] 114 Blood Pressure Source Monitor Blood Pressure Source [BP] Monitor Blood Pressure Position Semi-Fowlers Blood Pressure Position [BP] Semi-Fowlers Blood Pressure Location Right Arm Blood Pressure Location [BP] Right Arm Pulse Ox 94 94 Oxygen Delivery Method Bi-pap Bi-pap Bi-pap Oxygen Flow Rate (L/min) Fraction of Inspired Oxygen (FIO2) 70 70 70 05/01/22 10:30 05/01/22 11:12 05/01/22 11:15 Temperature 97.0 F L Temperature Source Axillary Pulse Rate 110 H 126 H Respiratory Rate 25 H 28 H Respiratory Effort Respiratory Depth Respiratory Pattern Tachypnea Blood Pressure 160/80 H Blood Pressure [BP] Blood Pressure Mean 106 Blood Pressure Mean [BP] Blood Pressure Source Monitor Blood Pressure Source [BP] Blood Pressure Position Semi-Fowlers Blood Pressure Position [BP] Blood Pressure Location Left Arm Blood Pressure Location [BP] Pulse Ox 97 92 95 Oxygen Delivery Method Bi-pap Nasal Cannula Oxygen Flow Rate (L/min) 5 Fraction of Inspired Oxygen (FIO2) 70 60 05/01/22 11:10 05/01/22 12:00 05/01/22 12:30 Temperature 97.6 F L Temperature Source Axillary Pulse Rate 140 H 116 H Respiratory Rate 25 H Respiratory Effort Respiratory Depth Respiratory Pattern Blood Pressure 167/89 H Blood Pressure [BP] Blood Pressure Mean 115 Blood Pressure Mean [BP] Blood Pressure Source Monitor Blood Pressure Source [BP] Blood Pressure Position Semi-Fowlers Blood Pressure Position [BP] Blood Pressure Location Left Arm Blood Pressure Location [BP] Pulse Ox 83 94 Oxygen Delivery Method Nasal Cannula Bi-pap Oxygen Flow Rate (L/min) 5 Fraction of Inspired Oxygen (FIO2) 60 05/01/22 13:40 05/01/22 13:46 05/01/22 14:02 Temperature 97.1 F L 97.6 F L Temperature Source Axillary Temporal Pulse Rate 112 H 128 H 144 H Respiratory Rate 24 H 26 H 36 H Respiratory Effort Respiratory Depth Respiratory Pattern Tachypnea Blood Pressure 168/66 H 128/86 H Blood Pressure [BP] Blood Pressure Mean 100 100 Blood Pressure Mean [BP] Blood Pressure Source Monitor Monitor Blood Pressure Source [BP] Blood Pressure Position Semi-Fowlers Semi-Fowlers Blood Pressure Position [BP] Blood Pressure Location Right Arm Right Arm Blood Pressure Location [BP] Pulse Ox 93 91 86 Oxygen Delivery Method Airvo Airvo Oxygen Flow Rate (L/min) 60 60 Fraction of Inspired Oxygen (FIO2) 70 70 73 05/01/22 14:20 05/01/22 14:37 Temperature Temperature Source Pulse Rate 123 H 131 H Respiratory Rate 26 H 36 H Respiratory Effort Respiratory Depth Respiratory Pattern Tachypnea Blood Pressure Blood Pressure [BP] Blood Pressure Mean Blood Pressure Mean [BP] Blood Pressure Source Blood Pressure Source [BP] Blood Pressure Position Blood Pressure Position [BP] Blood Pressure Location Blood Pressure Location [BP] Pulse Ox 90 94 Oxygen Delivery Method Airvo Oxygen Flow Rate (L/min) 60 Fraction of Inspired Oxygen (FIO2) 92 92 Weight Weight: 106 lb 11.26 oz Body Mass Index (BMI) 19.5 Physical Exam Narrative General: Alert, Oriented x3, Cooperative, No apparent distress HEENT: Atraumatic, PERRLA, EOMI, Normocephalic Oral: Dry mucosa Neck: Supple, No JVD Lungs: Diminished, Normal air movement, No rhonchi, No wheeze, No rales Cardiovascular: Tachycardic, Regular Rhythm, Normal S1, Normal S2, No murmurs Abdomen: Soft, tender across lower abdomen, Non-Distended, No Hepato-splenomegaly Extremities: No edema, Capillary Refill Less than 3 Seconds Skin: No rashes, No breakdown Musculoskeletal: No Tenderness to Palpation of Joints or Extremities Neurological: Cranial nerves II-XII grossly intact, Motor Exam 5/5 strength throughout, Sensory exam intact to light touch and pain Psych/Mental Status: Flat affect, Appropriate Results Lab / Micro Data Result Diagrams: 05/01/22 05:41 05/01/22 05:41 Labs: Laboratory Results - last 24 hr 05/01/22 05:41: WBC 14.1 H, RBC 4.95, Hgb 15.0, Hct 48.0 H, MCV 97.0, MCH 30.3, MCHC 31.3 L, RDW Std Deviation 48.8 H, RDW Coeff of [place] 13.6, Plt Count 214, MPV 12.1 H, Immature Gran % (Auto) 1.100 H, Neut % (Auto) 84.6 H, Lymph % (Auto) 9.8 L, [place] % (Auto) 4.0, Eos % (Auto) 0.1, Baso % (Auto) 0.4, Absolute Neuts (auto) 11.9 H, Absolute Lymphs (auto) 1.38, Nucleated RBC % 0 05/01/22 05:41: Sodium 139, Potassium 3.7, Chloride 104, Carbon Dioxide 28.0, Anion Gap 7, BUN 28 H, Creatinine 1.09 H, Estim Creat Clear Calc 27.78, Est GFR (MDRD) Af Amer 61, Est GFR (MDRD) Non-Af 50 L, BUN/Creatinine Ratio 25.7 H, Glucose 199 H, Calcium 9.0, Total Bilirubin 0.50, AST 45 H, ALT 39, Alkaline Phosphatase 59, Total Protein 7.3, Albumin 3.6, Globulin 3.7, Albumin/Globulin Ratio 1.0, Lipase 97 05/01/22 05:41: Lactic Acid 2.5 H* 05/01/22 05:41: B-Natriuretic Peptide 615.5 H 05/01/22 05:41: Troponin I High Sens 181 H* 05/01/22 05:41: PT Cancelled, INR Cancelled, APTT Cancelled 05/01/22 06:40: Urine Color Yellow, Urine Clarity Clear, Urine pH 6.0, Ur Specific [place] 1.020, Urine Protein 30 H, Urine Glucose (UA) 100 H, Urine Ketones 5 H, Urine Occult Blood 25 H, Urine Nitrite Positive H, Urine Bilirubin Negative, Urine Urobilinogen Normal, Ur Leukocyte Esterase 100 H, Urine RBC 0-5 SEEN, Urine WBC 5-10 SEEN, Ur Squamous Epith Cells 0 SEEN, Urine Bacteria 3+, Urine Mucus 0 SEEN 05/01/22 07:50: Troponin I High Sens Cancelled 05/01/22 07:50: PT 14.7, INR 1.2, APTT 39.1 H 05/01/22 08:18: Troponin I High Sens 298 H* 05/01/22 10:05: Lactic Acid 4.4 H* 05/01/22 11:30: Troponin I High Sens 811 H* Micro: Microbiology 05/01/22 06:04 Nasal Secretion SARS-CoV-2 & FLU Antigen (Rapid) - Final Radiology Impression Chest/Abdomen/Pelvis CT 05/01/22 05:28 IMPRESSION: Moderate cardiomegaly Pulmonary edema. Small bilateral pleural effusions. There is a nodule in the right lower lobe measures 7 mm has nonspecific appearance. Follow-up in 6 would be helpful for better characterization. Ascending aorta aneurysm measures 4 cm . Cholelithiasis Electronically Signed: Lilly Melgoza MD at 6:28 EST Reading Location ID and State: [facility] / MD Tel , Service support , Assessment & Plan Assessment/Plan (1) Respiratory failure: (2) UTI (urinary tract infection): PLAN: Plan 1. Acute hypoxic respiratory failure secondary to acute on chronic systolic CHF with a non-STEMI/HTN/HLD/CAD status post stent ? Initially she was given a liter of fluid and then was found to have an elevated BNP and her hypoxia so she was turned around and had Lasix given ? We will consult cardiology and trend troponins ? We will place her on a heparin drip ? We will continue with her blood pressure medications and her UTI we will hold off on Lasix but will not provide her any fluids either ? Under previous echo in December she did have significant aortic insufficiency 2. UTI ? She did receive Rocephin in the ER which we will continue ? Urine and blood cultures are pending ? Whether or not she has sepsis is unclear since she is having a non-STEMI with heart failure exacerbation its unclear whether or not the UTI has led to sepsis which leads to the non-STEMI and the CHF exacerbation or if they are coincidental and unrelated and therefore it is unclear as to which conditions the vital sign derangements should be assigned to DVT: Heparin drip Charges/Coding Visit Charges Inpatient E&M: 75139 Init Hosp L3
[2022-05-01 16:05] LABS: Allen Test Positive; Base Excess -4 mmol/L (-2 to +2); Bicarbonate 21.5 mmol/L (22-26); Blood Gas Specimen Type ART; FI02 60; PO2 72 mmHG (75-100); SITE R Radial; SO2 93 % (95-99); Total Carbon Dioxide 23 mmol/L; pCO2 39.5 mmHg (35-45); pH 7.34 (7.35-7.45)
[2022-05-01 17:03] LABS: Partial Thromboplast Time 156.7 Seconds (24.1-36.2)
--- NOTE | 2022-05-01 18:39 | PCM.CONS.C ---
Assessment & Plan Assessment/Plan (1) UTI (urinary tract infection): (2) Respiratory failure: (3) Hypoxia: (4) Abdominal pain: (5) History of non-ST elevation myocardial infarction (NSTEMI): (6) Nonrheumatic aortic (valve) insufficiency: (7) History of coronary artery stent placement: (8) TIA (transient ischemic attack): (9) Hyperlipidemia: (10) Essential (primary) hypertension: PLAN: 86-year-old patient with history of CAD Had PCI and stent of RCA 1997 PCI and stent using drug-eluting stent of LAD 2011. Patient in January 02, 2022 had non-STEMI and treated conservatively with medical therapy Last cardiac catheterization in 2016 showed patent stents with nonobstructive atherosclerosis Recently has non-STEMI with cardiomyopathy With the last echocardiogram showed improvement of the ejection fraction to 45-50% Also she has aortic incompetence +2 She was hypoxic requiring BiPAP And CT chest and chest x-ray showed evidence of pulmonary edema. Also she has a UTI in this admission Cardiac care plan recommendations; 1. Noted the elevation of cardiac biomarker which is a high sensitive troponin, will continue to treat medically Patient has no active chest pain, patient admitted to the ICU. To continue on the dual antiplatelet therapy 2. Diuretics with monitor of electrolytes and renal function. 3. We will continue to monitor and follow-up clinically Patient has been seen and followed by her primary coat examiner Dr. Zayas With maximize medical therapy for her CAD and cardiomyopathy HPI Consult Data Date of Consult: 05/01/22 Attending Care Provider: I saw this patient in the ER, presented with abdominal pain Known history of CAD with prior PCI and stent of RCA and LAD recent non-ST elevation LA When the last echocardiogram showed improvement of EF to 45-50% HPI Narrative Reason for Consultation: Patient with CAD/non-STEMI/pulm edema HPI Narrative: ALBER GUY, is a 86 F who presents [facility] Medical History Atherosclerotic heart disease of [place] coronary artery without angina pectoris Bradycardia Cardiomyopathy Chronic neck and back pain Diarrhea Difficulty balancing when standing Essential (primary) hypertension History of coronary artery disease History of non-ST elevation myocardial infarction (NSTEMI) (01/02/22) History of pneumothorax Hyperlipidemia Hypocalcemia Hypokalemia Hypoparathyroidism Ischemic cardiomyopathy Left-sided chest wall pain Limb weakness Nonrheumatic aortic (valve) insufficiency Other transient cerebral ischemic attacks and related syndromes Papular rash Parathyroid adenoma Peripheral vascular insufficiency Right renal artery stenosis Shoulder pain Thyroid disease TIA (transient ischemic attack) Home Medications oxybutynin chloride 5 mg tablet 5 mg PO BID #60 tabs 12/01/18 [History Last Taken Unknown] clopidogrel 75 mg tablet 75 mg PO MOWEFR 07/12/21 [History Last Taken Unknown] melatonin 5 mg PO/SL QHS 01/02/22 [History Last Taken Unknown] aspirin 81 mg chewable tablet 81 mg PO BREAKFAST #90 tabs 01/03/22 [Rx Last Taken Unknown] atorvastatin 20 mg tablet 20 mg PO QHS #30 tabs 01/03/22 [Rx Last Taken Unknown] carvedilol 3.125 mg tablet 3.125 mg PO BID 01/20/22 [History Last Taken Unknown] lisinopril 10 mg tablet 10 mg PO DAILY #90 tabs 01/20/22 [Rx Last Taken Unknown] Allergy/AdvReac Type Severity Reaction Status Date / Time meperidine HCl [From Demerol] Allergy Swelling, Verified 05/01/22 05:42 tremors Family History Brother Heart disease Mother Heart disease CHF (congestive heart failure) Father Heart disease Sister Heart disease Surgical History H/O parathyroidectomy (2016) History of cataract surgery History of coronary artery stent placement (02/16/12) History of left heart catheterization (09/14/16) History of shoulder surgery Social History household members: none Smoking Status: Former smoker alcohol intake: current details: occasionial ROS ROS Narrative Presenting symptoms of abdominal pain Noted she is hypoxic with oxygen saturation initially in the ER of around 65 Rest review of system unremarkable she does not have any active chest pain. Physical Exam Cardio Cardio Narrative: Cardiac rhythm showed sinus with sinus tachycardia Cardiovascular Ravindra S1-S2 regular Chest exam showed bilateral inspiratory rales. Risk Stratification Risk Stratification Applicable: Yes >/= 3 CAD Risk Factors (HTN, HLD, DM, family hx of CAD, or current smoker): Yes Aspirin Use in the Past 7 Days: Yes Severe Angina (>/= episodes in 24 hours): No EKG ST Changes >/= 0.5mm: No Positive Cardiac Marker: Yes Objective Data Vital Signs: Vital Signs Temp Pulse Resp BP Pulse Ox O2 Del Method O2 Flow Rate 97.5 F L 133 H 40 H 177/90 H 96 Bi-pap 60 05/01/22 15:35 05/01/22 17:09 05/01/22 17:09 05/01/22 15:35 05/01/22 17:09 05/01/22 16:00 05/01/22 14:37 FiO2 55 05/01/22 17:09 Oxygen Flow Rate (L/min) 60 Oxygen Delivery Method Bi-pap Weight: 106 lb 11.26 oz Body Mass Index (BMI) 19.5 Intake & Output: Intake and Output for Last 24 Hours 04/29/22 04/30/22 05/01/22 23:59 23:59 23:59 Intake Total 1068.9 / 1068.9 Output Total 1300 / 1300 Balance -231.1 / -231.1 Lab / Micro Data Result Diagrams: 05/01/22 05:41 05/01/22 05:41 Labs: Laboratory Results - last 24 hr 05/01/22 05:41: WBC 14.1 H, RBC 4.95, Hgb 15.0, Hct 48.0 H, MCV 97.0, MCH 30.3, MCHC 31.3 L, RDW Std Deviation 48.8 H, RDW Coeff of [place] 13.6, Plt Count 214, MPV 12.1 H, Immature Gran % (Auto) 1.100 H, Neut % (Auto) 84.6 H, Lymph % (Auto) 9.8 L, [place] % (Auto) 4.0, Eos % (Auto) 0.1, Baso % (Auto) 0.4, Absolute Neuts (auto) 11.9 H, Absolute Lymphs (auto) 1.38, Nucleated RBC % 0 05/01/22 05:41: Sodium 139, Potassium 3.7, Chloride 104, Carbon Dioxide 28.0, Anion Gap 7, BUN 28 H, Creatinine 1.09 H, Estim Creat Clear Calc 27.78, Est GFR (MDRD) Af Amer 61, Est GFR (MDRD) Non-Af 50 L, BUN/Creatinine Ratio 25.7 H, Glucose 199 H, Calcium 9.0, Total Bilirubin 0.50, AST 45 H, ALT 39, Alkaline Phosphatase 59, Total Protein 7.3, Albumin 3.6, Globulin 3.7, Albumin/Globulin Ratio 1.0, Lipase 97 05/01/22 05:41: Lactic Acid 2.5 H* 05/01/22 05:41: B-Natriuretic Peptide 615.5 H 05/01/22 05:41: Troponin I High Sens 181 H* 05/01/22 05:41: PT Cancelled, INR Cancelled, APTT Cancelled 05/01/22 06:40: Urine Color Yellow, Urine Clarity Clear, Urine pH 6.0, Ur Specific [place] 1.020, Urine Protein 30 H, Urine Glucose (UA) 100 H, Urine Ketones 5 H, Urine Occult Blood 25 H, Urine Nitrite Positive H, Urine Bilirubin Negative, Urine Urobilinogen Normal, Ur Leukocyte Esterase 100 H, Urine RBC 0-5 SEEN, Urine WBC 5-10 SEEN, Ur Squamous Epith Cells 0 SEEN, Urine Bacteria 3+, Urine Mucus 0 SEEN 05/01/22 07:50: Troponin I High Sens Cancelled 05/01/22 07:50: PT 14.7, INR 1.2, APTT 39.1 H 05/01/22 08:18: Troponin I High Sens 298 H* 05/01/22 10:05: Lactic Acid 4.4 H* 05/01/22 11:30: Troponin I High Sens 811 H* 05/01/22 16:25: APTT 156.7 H* Micro: Microbiology 05/01/22 06:04 Nasal Secretion SARS-CoV-2 & FLU Antigen (Rapid) - Final ABG Data ABG results: ABG 05/01/22 16:02 Specimen Type ART Sample Site R Radial pH 7.34 L Bicarbonate Actual 21.5 L Total CO2 23 Base Excess -4 L O2 Saturation 93 L O2 % 60 ABG pCO2 39.5 ABG pO2 72 L Gamaliel Test Positive Cardiology Labs/Tests 05/01/22 05:41: WBC 14.1 H, RBC 4.95, Hgb 15.0, Hct 48.0 H, MCV 97.0, MCH 30.3, MCHC 31.3 L, Plt Count 214, MPV 12.1 H, Immature Gran % (Auto) 1.100 H, Neut % (Auto) 84.6 H, Lymph % (Auto) 9.8 L, [place] % (Auto) 4.0, Eos % (Auto) 0.1, Baso % (Auto) 0.4, Absolute Neuts (auto) 11.9 H, Nucleated RBC % 0 05/01/22 05:41: Sodium 139, Potassium 3.7, Chloride 104, Carbon Dioxide 28.0, Anion Gap 7, BUN 28 H, Creatinine 1.09 H, Est GFR (MDRD) Af Amer 61, Est GFR (MDRD) Non-Af 50 L, BUN/Creatinine Ratio 25.7 H, Glucose 199 H, Calcium 9.0, Total Bilirubin 0.50 05/01/22 05:41: Lactic Acid 2.5 H* 05/01/22 05:41: B-Natriuretic Peptide 615.5 H 05/01/22 05:41: PT Cancelled, INR Cancelled, APTT Cancelled 05/01/22 06:40: Urine Color Yellow, Urine Clarity Clear, Urine pH 6.0, Ur Specific [place] 1.020, Urine Protein 30 H, Urine Glucose (UA) 100 H, Urine Ketones 5 H, Urine Occult Blood 25 H, Urine Nitrite Positive H, Urine Bilirubin Negative, Urine Urobilinogen Normal, Ur Leukocyte Esterase 100 H, Urine RBC 0-5 SEEN, Urine WBC 5-10 SEEN 05/01/22 07:50: PT 14.7, INR 1.2, APTT 39.1 H 05/01/22 10:05: Lactic Acid 4.4 H* 05/01/22 16:02: pH 7.34 L, Bicarbonate Actual 21.5 L, Base Excess -4 L, O2 Saturation 93 L, ABG pCO2 39.5, ABG pO2 72 L, Gamaliel Test Positive 05/01/22 16:25: APTT 156.7 H* Rhythm: EKG: ECHO: Stress Test: Cardiac Cath: PCI: CT Surgery: Holter monitor: EPS: PPM: CXR: Chest CT Scan: Radiography Diagnostic Testing: Radiology Impression Chest/Abdomen/Pelvis CT 05/01/22 05:28 IMPRESSION: Moderate cardiomegaly Pulmonary edema. Small bilateral pleural effusions. There is a nodule in the right lower lobe measures 7 mm has nonspecific appearance. Follow-up in 6 would be helpful for better characterization. Ascending aorta aneurysm measures 4 cm . Cholelithiasis Electronically Signed: Lilly Melgoza MD at 6:28 EST ,
[2022-05-01] MEDS: LORazepam 2 MG/ML Syringe 1 MG IV (21:33)
[2022-05-01] MEDS: 0.9% Saline Lock 10 ML Syringe IV (21:36)
[2022-05-02] VITALS (21 sets, daily range): BP systolic 88–154; BP diastolic 50–86; PULSE 111–133; RESP 16–41; TEMP 35.9–36.8; O2SAT 89–100
[2022-05-02] MEDS: LORazepam 2 MG/ML Syringe 1 MG IV ×2 (02:59→08:02)
[2022-05-02 05:10] LABS: Absolute Lymphocyte Count 0.95 X10^3/uL (0.83-4.51); Absolute Neutrophil Count 11.7 X10^3/uL (2.0-7.7); Basophil# 0.04 X10^3/uL; Basophil% 0.3 % (0-1); Eosinophil# 0.28 X10^3/uL; Hematocrit 50.7 % (37-47); Hemoglobin 16.1 g/dL (12.0-15.0); Lymphocyte # 0.95 X10^3/ul (0.83-4.51); Lymphocyte % 6.9 % (19-41); Mean Corp Hgb Conc 31.8 g/dL (32-36); Mean Corpuscular Volume 94.6 fL (81-99); Mean Platelet Vol. 13.5 fl (6.2-12.0); Monocyte# 0.81 X10^3/uL; Monocyte% 5.9 % (0-10); NRBC Flagged by Analyzer 0 % (0-5); Neutrophil # 11.66 X10^3/uL (2.7-7.7); Neutrophil % 84.3 % (47-70); Platelet Count 199 K/mm3 (150-450); RBC Distribution Width CV 13.8 % (11.6-14.6); RBC Distribution Width SD 47.8 fl (35.1-43.9); Red Blood Count 5.36 M/mm3 (4.2-5.4); White Blood Count 13.8 K/mm3 (4.4-11.0)
[2022-05-02 06:36] LABS: Anion Gap 14 (5-15); BUN 44 mg/dL (7-18); BUN/Creat Ratio 19.8 RATIO (10-20); Calcium,Total 8.5 mg/dL (8.5-10.1); Chloride 103 mmol/L (98-107); Creatinine, Serum 2.22 mg/dL (0.55-1.02); EST Glomerular Filtration Rate 22 mL/min (>60); Est Glom Filt Rate - Afr Amer 27 mL/min (>60); Estimated Creatinine Clearance 13.53 ml/min; Glucose 133 mg/dL (74-106); Potassium 5.4 mmol/L (3.5-5.1); Sodium Level 137 mmol/L (136-145)
--- NOTE | 2022-05-02 07:38 | CON.PCM.CC_ITS ---
Assessment & Plan Assessment/Plan (1) Sepsis: PLAN: Plan RECOMMENDATIONS: 1. Okay to transition to comfort care measures per family request. Hospitalist updated. 2. Continue empiric antimicrobials for now. 3. Will sign off from a critical care perspective, given plans to transition to comfort care measures. IMPRESSIONS: 1. Sepsis The patient presented with sepsis due to probable urinary tract source of infection with acute sepsis related organ dysfunction as evidenced by lactic acidemia, altered mentation, acute kidney injury and acute respiratory failure requiring noninvasive positive pressure ventilatory support. The patient remains on appropriate antimicrobials. I would avoid any additional fluids, given the patient's underlying cardiomyopathy. 2. Acute hypoxemic respiratory failure Likely secondary to flash pulmonary edema in the setting of presenting hypertension and NSTEMI. IV diuretics should be utilized when appropriate from a cardiology perspective. 3. NSTEMI Defer additional work-up/management to cardiology. This note was generated with [employer] software. It may contain incorrect words, spelling, and punctuation that were not noted in checking the note before signing. HPI Consult Data Date of Consult: 05/02/22 HPI Narrative Reason for Consultation: Acute hypoxemic respiratory failure HPI Narrative: The patient is an 86-year-old female, with a history as outlined below, who presented to the emergency department via EMS on May 01 with abdominal stewart n, nausea and vomiting. The patient has known history of coronary artery disease, valvular heart disease and underlying cardiomyopathy. The patient was previously a DNR CCA without intubation. Her family admitted that she has been suffering from worsening dementia as an outpatient. On presentation to the emergency department, the patient was noted to be afebrile but was significantly hypertensive with a blood pressure of 195/84 mmHg. White blood cell count was elevated at 14,000. INR was normal at 1.2. Chemistry profile was notable for a creatinine of 1.09. Lactate was elevated at 2.5. Troponin was increased at 181 with a BNP of 615. CT chest/abdomen/pelvis demonstrated radiographic evidence of pulmonary edema along with small bilateral pleural effusions. Urinalysis was positive for nitrites, leukocyte Estrace and 3+ urine bacteria. The patient was placed on antimicrobials and admitted to the medical intensive care unit for further management. The patient was ultimately placed on BiPAP therapy. She was seen in consultation by cardiology. I personally spoke with the patient's family at the bedside this morning, who indicated a desire to transition her to comfort care measures. [facility] Medical History Atherosclerotic heart disease of [place] coronary artery without angina pectoris Bradycardia Cardiomyopathy Chronic neck and back pain Diarrhea Difficulty balancing when standing Essential (primary) hypertension History of coronary artery disease History of non-ST elevation myocardial infarction (NSTEMI) (01/02/22) History of pneumothorax Hyperlipidemia Hypocalcemia Hypokalemia Hypoparathyroidism Ischemic cardiomyopathy Left-sided chest wall pain Limb weakness Nonrheumatic aortic (valve) insufficiency Other transient cerebral ischemic attacks and related syndromes Papular rash Parathyroid adenoma Peripheral vascular insufficiency Right renal artery stenosis Shoulder pain Thyroid disease TIA (transient ischemic attack) Home Medications oxybutynin chloride 5 mg tablet 5 mg PO BID #60 tabs 12/01/18 [History Last Taken Unknown] clopidogrel 75 mg tablet 75 mg PO MOWEFR 07/12/21 [History Last Taken Unknown] melatonin 5 mg PO/SL QHS 01/02/22 [History Last Taken Unknown] aspirin 81 mg chewable tablet 81 mg PO BREAKFAST #90 tabs 01/03/22 [Rx Last Taken Unknown] atorvastatin 20 mg tablet 20 mg PO QHS #30 tabs 01/03/22 [Rx Last Taken Unknown] carvedilol 3.125 mg tablet 3.125 mg PO BID 01/20/22 [History Last Taken Unknown] lisinopril 10 mg tablet 10 mg PO DAILY #90 tabs 01/20/22 [Rx Last Taken Unknown] Allergy/AdvReac Type Severity Reaction Status Date / Time meperidine HCl [From Demerol] Allergy Swelling, Verified 05/01/22 05:42 tremors Family History Brother Heart disease Mother Heart disease CHF (congestive heart failure) Father Heart disease Sister Heart disease Surgical History H/O parathyroidectomy (2017) History of cataract surgery History of coronary artery stent placement (02/16/12) History of left heart catheterization (09/14/16) History of shoulder surgery Social History household members: none Smoking Status: Former smoker alcohol intake: current details: occasionial ROS Review of Systems ROS Unobtainable: due to mental status Physical Exam Const General Appearance: ill appearing Orientation / Consciousness: confused and disoriented Nutritional Appearance: thin HEENT normocephalic and head/scalp atraumatic Eyes PERRL and EOMs intact bilaterally Neck supple General: trachea midline Chest inspection of chest normal Resp Effort and Inspection: tachypneic Auscultation: rales; Negative for rhonchi or wheezes Cardio S1 normal heart sound and S2 normal heart sound Rate: tachycardic GI normal to inspection, nondistended, normoactive bowel sounds Extremity no clubbing, cyanosis or edema Skin no rashes or lesions noted Neuro moves all extremities Psych Activity / Motor Behavior: restless Lab / Micro Data Result Diagrams: 05/02/22 04:50 05/02/22 06:12 Labs: Laboratory Results - last 24 hr 05/01/22 05:41: PT Cancelled, INR Cancelled, APTT Cancelled 05/01/22 07:50: Troponin I High Sens Cancelled 05/01/22 07:50: PT 14.7, INR 1.2, APTT 39.1 H 05/01/22 08:18: Troponin I High Sens 298 H* 05/01/22 10:05: Lactic Acid 4.4 H* 05/01/22 11:30: Troponin I High Sens 811 H* 05/01/22 16:25: APTT 156.7 H* 05/02/22 00:38: APTT Cancelled 05/02/22 01:02: APTT Cancelled 05/02/22 02:12: APTT 52.0 H 05/02/22 04:50: Sodium Cancelled, Potassium Cancelled, Chloride Cancelled, Carbon Dioxide Cancelled, Anion Gap Cancelled, BUN Cancelled, Creatinine Cancelled, Estim Creat Clear Calc Cancelled, Est GFR (MDRD) Af Amer Cancelled, Est GFR (MDRD) Non-Af Cancelled, BUN/Creatinine Ratio Cancelled, Glucose Cancelled, Calcium Cancelled 05/02/22 04:50: WBC 13.8 H, RBC 5.36, Hgb 16.1 H, Hct 50.7 H, MCV 94.6, MCH 30.0, MCHC 31.8 L, RDW Std Deviation 47.8 H, RDW Coeff of Celestino 13.8, Plt Count 199, MPV 13.5 H, Immature Gran % (Auto) 0.600, Neut % (Auto) 84.3 H, Lymph % (Auto) 6.9 L, [place] % (Auto) 5.9, Eos % (Auto) 2.0, Baso % (Auto) 0.3, Absolute Neuts (auto) 11.7 H, Absolute Lymphs (auto) 0.95, Nucleated RBC % 0 05/02/22 05:50: Sodium Cancelled, Potassium Cancelled, Chloride Cancelled, Carbon Dioxide Cancelled, Anion Gap Cancelled, BUN Cancelled, Creatinine Can celled, Estim Creat Clear Calc Cancelled, Est GFR (MDRD) Af Amer Cancelled, Est GFR (MDRD) Non-Af Cancelled, BUN/Creatinine Ratio Cancelled, Glucose Cancelled, Calcium Cancelled 05/02/22 06:12: Sodium 137, Potassium 5.4 H, Chloride 103, Carbon Dioxide 20.0 L , Anion Gap 14, BUN 44 H, Creatinine 2.22 H, Estim Creat Clear Calc 13.53, Est GFR (MDRD) Af Amer 27 L, Est GFR (MDRD) Non-Af 22 L, BUN/Creatinine Ratio 19.8, Glucose 133 H, Calcium 8.5 Micro: Microbiology 05/01/22 06:04 Nasal Secretion SARS-CoV-2 & FLU Antigen (Rapid) - Final ABG Data ABG results: ABG 05/01/22 16:02 Specimen Type ART Sample Site R Radial pH 7.34 L Bicarbonate Actual 21.5 L Total CO2 23 Base Excess -4 L O2 Saturation 93 L O2 % 60 ABG pCO2 39.5 ABG pO2 72 L Gamaliel Test Positive Charges/Coding Visit Charges Inpatient E&M: 44951 Init Hosp L2
[2022-05-02] MEDS: 0.9% Saline Lock 10 ML Syringe IV ×2 (08:01→12:12)
--- NOTE | 2022-05-02 09:36 | PN.HOSP_ITS ---
Subjective Subjective Had been agitated overnight and was requiring multiple doses of Ativan in order to keep her BiPAP on. Her respiratory status is stable while on BiPAP. Her white count is slightly improved but her renal function is worse. Objective Data Objective Data Vital Signs: Vital Signs Temp Pulse Resp BP Pulse Ox O2 Del Method O2 Flow Rate 96.9 F L 123 H 28 H 141/76 H 97 Bi-pap 60 05/02/22 05:00 05/02/22 07:00 05/02/22 07:00 05/02/22 07:00 05/02/22 07:00 05/02/22 08:00 05/01/22 14:37 FiO2 45 05/02/22 08:00 Oxygen Flow Rate (L/min) 60 Oxygen Delivery Method Bi-pap Weight: 105 lb 13.15 oz Body Mass Index (BMI) 19.5 Intake & Output: Intake and Output for Last 24 Hours 05/01/22 05/02/22 05/03/22 03:59 03:59 03:59 Intake Total 1138.4 / 1138.4 .05 Output Total 1300 / 1300 Balance -161.6 / -161.6 .05 Lab / Micro Data Result Diagrams: 05/02/22 04:50 05/02/22 06:12 Labs: Laboratory Results - last 24 hr 05/01/22 10:05: Lactic Acid 4.4 H* 05/01/22 11:30: Troponin I High Sens 811 H* 05/01/22 16:25: APTT 156.7 H* 05/02/22 00:38: APTT Cancelled 05/02/22 01:02: APTT Cancelled 05/02/22 02:12: APTT 52.0 H 05/02/22 04:50: Sodium Cancelled, Potassium Cancelled, Chloride Cancelled, Carbon Dioxide Cancelled, Anion Gap Cancelled, BUN Cancelled, Creatinine Cancelled, Estim Creat Clear Calc Cancelled, Est GFR (MDRD) Af Amer Cancelled, Est GFR (MDRD) Non-Af Cancelled, BUN/Creatinine Ratio Cancelled, Glucose Cancelled, Calcium Cancelled 05/02/22 04:50: WBC 13.8 H, RBC 5.36, Hgb 16.1 H, Hct 50.7 H, MCV 94.6, MCH 30.0, MCHC 31.8 L, RDW Std Deviation 47.8 H, RDW Coeff of [place]estino 13.8, Plt Count 199, MPV 13.5 H, Immature Gran % (Auto) 0.600, Neut % (Auto) 84.3 H, Lymph % (Auto) 6.9 L, [place] % (Auto) 5.9, Eos % (Auto) 2.0, Baso % (Auto) 0.3, Absolute Neuts (auto) 11.7 H, Absolute Lymphs (auto) 0.95, Nucleated RBC % 0 05/02/22 05:50: Sodium Cancelled, Potassium Cancelled, Chloride Cancelled, Carbon Dioxide Cancelled, Anion Gap Cancelled, BUN Cancelled, Creatinine Cancel led, Estim Creat Clear Calc Cancelled, Est GFR (MDRD) Af Amer Cancelled, Est GFR (MDRD) Non-Af Cancelled, BUN/Creatinine Ratio Cancelled, Glucose Cancelled, Calcium Cancelled 05/02/22 06:12: Sodium 137, Potassium 5.4 H, Chloride 103, Carbon Dioxide 20.0 L , Anion Gap 14, BUN 44 H, Creatinine 2.22 H, Estim Creat Clear Calc 13.53, Est GFR (MDRD) Af Amer 27 L, Est GFR (MDRD) Non-Af 22 L, BUN/Creatinine Ratio 19.8, Glucose 133 H, Calcium 8.5 Micro: Microbiology 05/01/22 06:04 Nasal Secretion SARS-CoV-2 & FLU Antigen (Rapid) - Final ABG Data ABG results: ABG 05/01/22 16:02 Specimen Type ART Sample Site R Radial pH 7.34 L Bicarbonate Actual 21.5 L Total CO2 23 Base Excess -4 L O2 Saturation 93 L O2 % 60 ABG pCO2 39.5 ABG pO2 72 L Gamaliel Test Positive Physical Exam Narrative General: Somnolent, disoriented HEENT: Atraumatic, PERRLA, EOMI, Normocephalic Oral: Dry mucosa Neck: Supple, No JVD Lungs: Diminished, Normal air movement, No rhonchi, No wheeze, No rales Cardiovascular: Tachycardic, Regular Rhythm, Normal S1, Normal S2, No murmurs Abdomen: Soft, tender across lower abdomen, Non-Distended, No Hepato- splenomegaly Extremities: No edema, Capillary Refill Less than 3 Seconds Skin: No rashes, No breakdown Musculoskeletal: No Tenderness to Palpation of Joints or Extremities Neurological: Unable to follow commands for an exam Psych/Mental Status: Flat affect Assessment & Plan Assessment/Plan (1) Respiratory failure: (2) UTI (urinary tract infection): PLAN: Plan 1. Acute hypoxic respiratory failure and sepsis secondary to UTI which likely led to acute on chronic systolic CHF with a non-STEMI ? She did receive Rocephin in the ER which we will continue ? Urine and blood cultures are pending ? It appears now that she likely had sepsis for several days with her UTI and that led to her non-STEMI and her exacerbation of CHF with pulmonary edema ? I had another 30-minute conversation on advance care planning with her family today and they felt that that she was not doing any better and that it would be time for comfort care measures. They requested that hospice be contacted for an evaluation and possible transfer to inpatient hospice if possible. We will contact hospice in the meantime we will continue with current care, in order to minimize discomfort we will discontinue the heparin drip so she does not have to have multiple blood checks but will continue with antibiotics and other supportive measures. ? Sepsis was likely present on admission 2. HTN/HLD/CAD status post stent ? Initially she was given a liter of fluid and then was found to have an elevated BNP and her hypoxia so she was turned around and had Lasix given ? We will consult cardiology and trend troponins ? We will discontinue her heparin drip ? We will continue with her blood pressure medications and her UTI we will hold off on Lasix but will not provide her any fluids either ? Under previous echo in December she did have significant aortic insufficiency with normal EF DVT: None Charges/Coding Visit Charges Inpatient E&M: 23349 Subs Hosp L2 Procedures Hospitalists Procedures: 18846 Advncd Care Plan 30 Min
[2022-05-02] MEDS: Ceftriaxone 1 GM/50 ML BAG IV (10:41)
[2022-05-02] MEDS: Morphine 2 MG/ML Syringe 1 MG IV (12:11)
--- NOTE | 2022-05-02 14:24 | PCM.PN.CARD ---
Subjective Subjective Seen evaluated today at bedside along with the nursing staff Symptoms of shortness of breath is improving on the current treatment/BiPAP Objective Data Vital Signs: Vital Signs Temp Pulse Resp BP Pulse Ox O2 Del Method O2 Flow Rate 98.2 F 129 H 36 H 126/74 H 92 Bi-pap 60 05/02/22 12:00 05/02/22 12:00 05/02/22 12:00 05/02/22 12:00 05/02/22 12:00 05/02/22 12:00 05/01/22 14:37 FiO2 60 05/02/22 12:00 Oxygen Flow Rate (L/min) 60 Oxygen Delivery Method Bi-pap Weight: 105 lb 13.15 oz Body Mass Index (BMI) 19.5 Intake & Output: Intake and Output for Last 24 Hours 04/30/22 05/01/22 05/02/22 23:59 23:59 23:59 Intake Total 1118.4 / 1118.4 92.05 / 92.05 Output Total 1300 / 1300 250 / 250 Balance -181.6 / -181.6 -157.95 / -157.95 Lab / Micro Data Result Diagrams: 05/02/22 04:50 05/02/22 06:12 Labs: Laboratory Results - last 24 hr 05/01/22 16:25: APTT 156.7 H* 05/02/22 00:38: APTT Cancelled 05/02/22 01:02: APTT Cancelled 05/02/22 02:12: APTT 52.0 H 05/02/22 04:50: Sodium Cancelled, Potassium Cancelled, Chloride Cancelled, Carbon Dioxide Cancelled, Anion Gap Cancelled, BUN Cancelled, Creatinine Cancelled, Estim Creat Clear Calc Cancelled, Est GFR (MDRD) Af Amer Cancelled, Est GFR (MDRD) Non-Af Cancelled, BUN/Creatinine Ratio Cancelled, Glucose Cancelled, Calcium Cancelled 05/02/22 04:50: WBC 13.8 H, RBC 5.36, Hgb 16.1 H, Hct 50.7 H, MCV 94.6, MCH 30.0, MCHC 31.8 L, RDW Std Deviation 47.8 H, RDW Coeff of Celestino 13.8, Plt Count 199, MPV 13.5 H, Immature Gran % (Auto) 0.600, Neut % (Auto) 84.3 H, Lymph % (Auto) 6.9 L, [place] % (Auto) 5.9, Eos % (Auto) 2.0, Baso % (Auto) 0.3, Absolute Neuts (auto) 11.7 H, Absolute Lymphs (auto) 0.95, Nucleated RBC % 0 05/02/22 05:50: Sodium Cancelled, Potassium Cancelled, Chloride Cancelled, Carbon Dioxide Cancelled, Anion Gap Cancelled, BUN Cancelled, Creatinine Cancelled, Estim Creat Clear Calc Cancelled, Est GFR (MDRD) Af Amer Cancelled, Est GFR (MDRD) Non-Af Cancelled, BUN/Creatinine Ratio Cancelled, Glucose Cancelled, Calcium Cancelled 05/02/22 06:12: Sodium 137, Potassium 5.4 H, Chloride 103, Carbon Dioxide 20.0 L, Anion Gap 14, BUN 44 H, Creatinine 2.22 H, Estim Creat Clear Calc 13.53, Est GFR (MDRD) Af Amer 27 L, Est GFR (MDRD) Non-Af 22 L, BUN/Creatinine Ratio 19.8, Glucose 133 H, Calcium 8.5 Micro: Microbiology 05/01/22 05:40 Urine Catheter - Catheter Urine Culture - Preliminary GNR [employer] ABG Data ABG results: ABG 05/01/22 16:02 Specimen Type ART Sample Site R Radial pH 7.34 L Bicarbonate Actual 21.5 L Total CO2 23 Base Excess -4 L O2 Saturation 93 L O2 % 60 ABG pCO2 39.5 ABG pO2 72 L Gamaliel Test Positive Cardiology Labs/Tests 05/01/22 16:02: pH 7.34 L, Bicarbonate Actual 21.5 L, Base Excess -4 L, O2 Saturation 93 L, ABG pCO2 39.5, ABG pO2 72 L, Gamaliel Test Positive 05/01/22 16:25: APTT 156.7 H* 05/02/22 00:38: APTT Cancelled 05/02/22 01:02: APTT Cancelled 05/02/22 02:12: APTT 52.0 H 05/02/22 04:50: Sodium Cancelled, Potassium Cancelled, Chloride Cancelled, Carbon Dioxide Cancelled, Anion Gap Cancelled, BUN Cancelled, Creatinine Cancelled, Est GFR (MDRD) Af Amer Cancelled, Est GFR (MDRD) Non-Af Cancelled, BUN/Creatinine Ratio Cancelled, Glucose Cancelled, Calcium Cancelled 05/02/22 04:50: WBC 13.8 H, RBC 5.36, Hgb 16.1 H, Hct 50.7 H, MCV 94.6, MCH 30.0, MCHC 31.8 L, Plt Count 199, MPV 13.5 H, Immature Gran % (Auto) 0.600, Neut % (Auto) 84.3 H, Lymph % (Auto) 6.9 L, [place] % (Auto) 5.9, Eos % (Auto) 2.0, Baso % (Auto) 0.3, Absolute Neuts (auto) 11.7 H, Nucleated RBC % 0 05/02/22 05:50: Sodium Cancelled, Potassium Cancelled, Chloride Cancelled, Carbon Dioxide Cancelled, Anion Gap Cancelled, BUN Cancelled, Creatinine Cancelled, Est GFR (MDRD) Af Amer Cancelled, Est GFR (MDRD) Non-Af Cancelled, BUN/Creatinine Ratio Cancelled, Glucose Cancelled, Calcium Cancelled 05/02/22 06:12: Sodium 137, Potassium 5.4 H, Chloride 103, Carbon Dioxide 20.0 L, Anion Gap 14, BUN 44 H, Creatinine 2.22 H, Est GFR (MDRD) Af Amer 27 L, Est GFR (MDRD) Non-Af 22 L, BUN/Creatinine Ratio 19.8, Glucose 133 H, Calcium 8.5 Rhythm: EKG: ECHO: Stress Test: Cardiac Cath: PCI: CT Surgery: Holter monitor: EPS: PPM: CXR: Chest CT Scan: Physical Exam Cardio Cardio Narrative: Patient disorientated Cardiovascular exam sinus tachycardia S1-S2 normal, no systolic or diastolic murmur Chest examination diminished air entry bilaterally Assessment & Plan Assessment/Plan (1) UTI (urinary tract infection): (2) Hypoxia: (3) Atherosclerotic heart disease of [place] coronary artery without angina pectoris: (4) Essential (primary) hypertension: (5) Hyperlipidemia: (6) Right renal artery stenosis: PLAN: Plan 86-year-old patient is CAD with prior PCI of the RCA 98 and PCI of the LAD in 2011 Last echocardiogram EF around 35 which improved on subsequent echocardiogram Has been on dual antiplatelet therapy in addition to medical treatment with beta-cricket carvedilol FABIEN inhibitor's and statin. On this admission she has elevated cardiac marker with a troponins up to 811. Patient had acute hypoxic respiratory failure with UTI and sepsis in addition to acute on chronic systolic heart failure with non-STEMI. I noted decision was made for hospice care and comfort And she has been on medical treatment for CAD and pulm edema. Cardiac care plan recommendations; Due to the current decision of hospice care and comfort measures She is not a candidate for invasive cardiac evaluation On the last cardiac catheterization 2016 the RCA and the LAD stents were patent She has +2 AI and EF of around 35% and recommendation would be medical treatment. Excellent primary pump mechanic of this patient is Dr. Puga.
--- NOTE | 2022-05-02 14:54 | EXP.PCM_ITS ---
Preliminary Cause of Preliminary Cause of Preliminary Cause of : Sepsis from a UTI Non-STEMI Pulmonary edema Date of Admission: 05/01/22 Date of : 05/02/22 Principle Diagnosis Problem List: Active and Suspected Problems (Updated 05/02/22 @ 08:[address] Herminio Lanza, DO) Sepsis (Acute) UTI (urinary tract infection) (Acute) Respiratory failure (Acute) Hypoxia (Acute) Abdominal pain (Acute) Nausea & vomiting (Acute) CHF (congestive heart failure) (Acute) History of non-ST elevation myocardial infarction (NSTEMI) (Acute 01/02/22) Nonrheumatic aortic (valve) insufficiency (Acute) Essential (primary) hypertension (Acute) Hyperlipidemia (Acute) Hospital Course DrMagan Yeni Willett was an 86-year-old female presented to the hospital with abdominal pain. According to a friend it appears that she had been hallucinating for several days no effort was made to come into the hospital at that time. When she did present she was significantly hypoxic and short of breath. Troponin was elevated and cardiology was consulted. She was initiated on a heparin drip and started on BiPAP. CT of the chest was consistent with pulmonary edema, there is no significant intra-abdominal pathology at that time. UA was consistent with a UTI and initially the patient was confused as to whether or not the UTI and the non-STEMI were related however based on her progression and the more history that was obtained, it does seem more likely that she had been having a UTI for quite a few days and became increasingly septic this led to significant cardiac strain and a non-STEMI which led to a pulmonary edema. She was initially given a liter bolus in the ER but then was found to have pulmonary edema so was given Lasix. I elected to hold off on both Lasix and IV fluids as we tried to clear up the picture as to what was going on, cardiology agreed given her kidney disease to not proceed with aggressive diuresis at this time. She was started on Rocephin and was transferred to the ICU. In the ICU we had a conversation with the niece who is her power of divorce attorney who felt that her aunt would not want a lot of aggressive care so we elected not to intubate or place a central line. This morning we had another conversation about advance care planning at which point she elected to proceed with hospice care. Hospice was notified and they had plan to evaluate her on morning however this afternoon her blood pressure precipitously dropped and she was pronounced on 05/02/2022 at 1434. Visit Charges Inpatient E&M: 51820 Disch Hosp
--- NOTE | 2022-05-02 15:40 | NURSING ---
This RN entered room after noticing patient's BP and HR dropping fairly quickly. Patient then went asystole quickly as well. Absence of heart beat verified by Carmen Brizuela RN and Hina Toussaint RN at 1434.
== END 2022-05-02 17:50 | DRG 871 ==
LOC: ED 06:42 → PCU 08:04 → ICU 05-04 12:25
PROVIDERS: Admitting Provider Family Medicine; Emergency Provider Emergency Medicine; PCP Internal Medicine; Visit Provider Family Medicine
DX: A41.9 Sepsis, unspecified organism (principal); I50.23 Acute on chronic systolic (congestive) heart failure; J96.01 Acute respiratory failure with hypoxia; I21.3 ST elevation (STEMI) myocardial infarction of unspecified site; N17.9 Acute kidney failure, unspecified; E87.20 Acidosis, unspecified; N39.0 Urinary tract infection, site not specified; I70.1 Atherosclerosis of renal artery; I11.0 Hypertensive heart disease with heart failure; E78.5 Hyperlipidemia, unspecified; I35.1 Nonrheumatic aortic (valve) insufficiency; I25.10 Atherosclerotic heart disease of native coronary artery without angina pectoris; I25.5 Ischemic cardiomyopathy; E78.00 Pure hypercholesterolemia, unspecified; Z51.5 Encounter for palliative care; Z66 Do not resuscitate; Z81.8 Family history of other mental and behavioral disorders; Z87.891 Personal history of nicotine dependence; Z79.891 Long term (current) use of opiate analgesic; Z95.5 Presence of coronary angioplasty implant and graft
CPT/HCPCS: 36415; 36600; 51702; 71250; 74176; 80048; 80053; 81001; 82803; 83605; 83690; 83880; 84484; 85025; 85610; 85730; 87077; 87086; 87088; 87186; 87428; 93005; 94002; 94003; 99285; J7030; J7050; A4216; J1940; J2405